=== PATIENT | female | born 1960 | race Caucasian/White ===

== ENCOUNTER → 2018-11-18 09:42 | Outpatient (CLI) | payer MEDICAID, SELFPAY ==
--- NOTE | 2018-11-18 09:45 | BI_ITS ---
MAMMOGRAPHY - BILATERAL SCREENING REASON FOR EXAM: Female, 58 years old. Routine annual screening examination. PERTINENT HISTORY: Non-contributory. TECHNIQUE: Digital bilateral breast ana (3D mammographic acquisition) in the CC and MLO projections. 2-D mediolateral oblique (MLO) and craniocaudad (CC) views of both breasts were obtained. CAD: Full Field Digital Mammography with Computer Added Detection was performed. COMPARISON: Comparison is made with prior examination dated May 10, 2014. FINDINGS: Breast Composition: The breasts are almost entirely fatty. There are no dominant masses or suspicious calcifications. No other significant abnormalities are identified. There has been no significant change since the prior study. BI/SCREEN MAMM (CAD) W/ANA BILAT IMPRESSION: Stable bilateral screening mammogram. Yearly follow-up mammogram recommended. (A) ASSESSMENT CATEGORY: BIRADS Category 1: Negative. A letter regarding these results will be sent to the patient by the facility within 30 days. Approximately 10% of breast cancers are not detected by mammography. A normal mammogram should not delay biopsy of a clinically suspicious abnormality. [id number] Electronically Signed: Benjamin Torres, at 10:48 EDT , Service support ,
== END ==
PROVIDERS: Family Provider Internal Medicine; PCP Internal Medicine; Referring Provider Nurse Practitioner; Visit Provider Nurse Practitioner
DX: Z12.31 Encounter for screening mammogram for malignant neoplasm of breast (principal)
CPT/HCPCS: 77063; 77067

== ENCOUNTER → 2019-02-15 09:01 | Outpatient (CLI) | payer MEDICAID, SELFPAY ==
[2019-02-15] VITALS (7 sets, daily range): BP systolic 110–131; BP diastolic 43–90; PULSE 67–91; RESP 16–18; TEMP 36.6–37; O2SAT 97; BMI 35.4
== END ==
PROVIDERS: Family Provider Internal Medicine; PCP Internal Medicine; Referring Provider Internal Medicine; Visit Provider Internal Medicine
DX: D64.9 Anemia, unspecified (principal)
CPT/HCPCS: 36415; 36430; 86850; 86900; 86901; 86920; 86922; J7040; P9016; A4216

== ENCOUNTER 2019-04-10 11:10 | Day surgery (SDC) | payer MEDICAID, SELFPAY ==
[2019-02-15 09:33] VITALS: BMI 35.4
[2019-04-10] VITALS (7 sets, daily range): BP systolic 82–131; BP diastolic 36–82; PULSE 66–81; RESP 15–18; TEMP 36.1–36.6; O2SAT 88–97; BMI 34.4
--- NOTE | 2019-04-10 | GASB_PTH ---
PATIENT: AMAURY MOORE LOC: EN U#:[id number] AGE/SX: 59/F ROOM: RE04/10/[address]: Dr. Kev Chahal MD : 1960 BED: DIS: 04/10/2019 SPEC #: [id number] RECD: 04/10/19 15:10 STATUS: SAURABH REHenny #: [id number] CRISTINA: 04/10/19 00:[address]: Kev Chahal DEPT: SURGICAL PATHOLOGY RECD BY: Fam Ladd ENTERED: 04/11/19 08:33 SP TYPE: Gastric Bx OTHR DR: Dr. Maxwell Lares MD Tissues: Gastric mucous membrane Procedures: Surgery Specimen Level IV HEADER OPERATION: [place] [place] DIAGNOSIS: Iron deficiency anemia TISSUE SUBMITTED: Antrum biopsy for histo and H. pylori MICROSCOPIC DIAGNOSIS Gastric antrum, biopsy: Chronic gastritis. Focal intestinal metaplasia. No evidence of dysplasia. See comment. AM:layne 04/13/19 COMMENT The results of immunohistochemistry for Helicobacter pylori will be reported separately ([id number]). Immunohistochemistry ([id number]) supports the above diagnosis. MICROSCOPIC DESCRIPTION Slides are reviewed. GROSS DESCRIPTION Received in fixative is one container labeled with the patient's name and designated antrum biopsy. The specimen consists of one irregular fragment of light polk soft tissue that measures 0.3 x 0.2 x 0.1 cm. The specimen is totally submitted in one cassette. / SJ:layne 04/11/19 TC:3 CPT: 82291
--- NOTE | 2019-04-10 07:23 | HP.PCM_ITS ---
History and Physical Date of Admission: 04/10/19 HISTORY AND PHYSICAL ? Rosi Thornton 1960 ? REFERRING PHYSICIAN: ??Marivel Quiroz MD ? CHIEF COMPLAINT: ??Consult (Consult EGD) ? HPI: The patient is a 59 year old female referred for endoscopy. ?Rosi notes no current colon complaints. ?She denies rectal bleeding. ?She denies melena. ?She denies hematochezia. ? The patient?has a history of ITP and has had previous issues of anemia and previous GI bleeding. ?She does have a history of reflux symptoms but she currently denies nausea or vomiting. ?She had recent laboratory studies which demonstrated iron deficiency anemia.??Her stool has been negative for occult blood however. ? Rosi?has??undergone prior endoscopy. ?He had upper and lower endoscopy in 2010. ? The patient is being seen by me today at the request of ?for my opinion and advice regarding iron deficiency anemia.? ? ? PAST MEDICAL HISTORY PAST MEDICAL HISTORY Diagnosis Date ? Acute gastritis ? ? Adjustment disorder with depressed mood ? ? ALKALINE PHOSPHATEMIA ? ? Allergic rhinitis, cause unspecified ? ? Anemia, unspecified ? ? Arthralgia of temporomandibular joint ? ? Cerebral thrombosis without mention of cerebral infarction 1985 ? Chronic ITP (idiopathic thrombocytopenia) (HCC) 03/01/2017 ? Diabetes (HCC) ? ? Dyspepsia and other specified disorders of function of stomach ? ? Epileptic petit mal status (HCC) ? ? Esophageal reflux 05/05/2005 ? Gait abnormality 04/17/2014 ? Neurology: ?Dr. Johny Simpson. ? Generalized convulsive epilepsy without mention of intractable epilepsy ? ? Generalized osteoarthrosis, unspecified site ? ? Headache(784.0) ? ? Hemiplegia affecting nondominant side, late effect of cerebrovascular disease 04/17/2014 ? Left sided with dysesthesias. ?Neurology: ?Dr. Johny Simpson. ? ? Hx of transfusion 03/26/2017 ? Pre Med: ?Tylenol ?650 mg p.o. ?Blood irradiated ? Impaired fasting glucose ? ? Iron deficiency anemia, unspecified 05/05/2005 ? Other acquired deformity of ankle and foot(736.79) ? ? Other and unspecified hyperlipidemia ? ? Other diseases of trachea and bronchus, not elsewhere classified ? ? Stroke (HCC) ? ? Symptomatic menopausal or female climacteric states 04/08/2006 ? Unspecified asthma(493.90) ? ? Unspecified sinusitis (chronic) ? PAST SURGICAL HISTORY PAST SURGICAL HISTORY Procedure Laterality Date ? ANEURYSM SURG/VERT-BASILAR CIRC ? 1985 ? DELIVERY ONLY ? ? ? X 2 ? COLONOSCOP W/ OR W/O BRSH SPEC ? 03/23/11 ? EGD W/O BRSH SPECIMEN W/BX ? 03/23/11 ? HYSTEROSCOPY, DIAGNOSTIC (SEPARATE ? 04/23/05 ? Hysteroscopy/curretage ? KNEE SCOPE,DIAGNOSTIC Right 1979 ? Arthroscopy, knee right ? LIGATE FALLOPIAN TUBE ? ? ? Tubal ligation ? PILONIDAL CYST/SINUS EXCISION ? ? ? Excision pilonidal cyst ? REPAIR INCISIONAL HERNIA,REDUCIBLE ? 02/12/2006 ? Hernia repair, incisional, SB resection ? REVISE MEDIAN N/CARPAL TUNNEL SURG ? ? ? Carpal tunnel decomp right ? TOTAL ABDOM HYSTERECTOMY ? 05/19/2005 ? Hysterectomy, GREYSON/BSO ? ? ? CURRENT MEDICATIONS Current Outpatient Medications Medication Sig ? loratadine (CLARITIN) 10 mg tablet Take 1 tablet by mouth once daily as needed. ? Omeprazole 40 mg capsule Take 1 capsule by mouth once daily. ? montelukast (SINGULAIR) 10 mg tablet Take 1 tablet by mouth once daily. ? metFORMIN (GLUCOPHAGE) 500 mg tablet Take 1 tablet by mouth daily with breakfast. ? albuterol (PROVENTIL) 2.5 mg /3 mL (0.083 %) nebulizer solution Use 3 mL via nebulizer every 4 hours as needed for Wheezing/Shortness of Breath. Use over 5-15minutes. ? albuterol HFA (VENTOLIN HFA) 90 mcg/actuation inhaler inhale 2 puffs every 4 hours if needed for wheezing or shortness of breath ? nystatin (MYCOSTATIN) cream Apply 1 application to affected area twice daily as needed. ? sertraline (ZOLOFT) 100 mg tablet Take 2 tablets by mouth once daily. ? mometasone (ELOCON) 0.1 % cream Apply 1 application to affected area once daily as needed (rash behind ears.). ? lisinopril-hydrochlorothiazide (ZESTORETIC) 10-12.5 mg per tablet Take 1 tablet by mouth once daily. ? simvastatin (ZOCOR) 40 mg tablet Take 1 tablet by mouth daily at bedtime. ? potassium chloride SR (MICRO-K) 10 mEq CR capsule Take 1 capsule by mouth once daily. ? gabapentin (NEURONTIN) 400 mg capsule Take 1 capsule by mouth once daily for 180 days. ? perflutren lipid microspheres (DEFINITY) 1.1 mg/mL injection (to be provided with echo procedure) Inject 1.3 mL intravenously as directed. ? COMPOUNDED PRESCRIPTION Left ankle foot orthosis. ?Dx: M21.372; I69.959 ? No current facility-administered medications for this visit.? ? ? ALLERGIES:?Augmentin [Amoxicillin-Pot Clavulanate]; Enviromental [Other] ? PERSONAL HISTORY:? SOCIAL HISTORY Social History ? Tobacco Use ? Smoking status: Former Smoker ? ? Last attempt to quit: 05/08/2000 ? ? Years since quittin.8 ? Smokeless tobacco: Never Used Substance Use Topics ? Alcohol use: No ? Drug use: No ?? ? FAMILY HISTORY:? FAMILY HISTORY FAMILY HISTORY Problem Relation Age of Onset ? Diabetes Mother ? ? Lipids Mother ? ? Hypertension Mother ? ? Alzheimer's Disease Father ?step father ? Heart Father ? ? Hypertension Sister ? ? Lipids Sister ? ? ? REVIEW OF SYMPTOMS: ??The review of systems data was entered by the nurse and reviewed by me ? Nursing Notes: Fernando Brower LPN ?03/07/2019 ?2:28 PM ?Signed REVIEW OF SYSTEMS: ?General:???The patient NOTES fatigue, denies weight loss, denies weight gain, denies feeling hot, and NOTES feelings of cold. ?Eyes: ?The patient denies glaucoma, denies eye injury/surgery, does not wear glasses or contacts. ?Ear/Nose/Throat: ?The patient NOTES allergies, denies hayfever, denies ear infections, and denies bloody noses. ?Cardiovascular: ?The patient denies chest pain, denies heart disease, denies high blood pressure,denies cardiac stent, denies prior heart attack, denies irregular heart beat, NOTES high cholesterol, ?denies poor circulation, denies heart failure, other cardiac issues, denies claudication, denies cold feet, denies peripheral arterial stent. ?Respiratory: ?The patient denies tuberculosis, denies pneumonia, denies frequent cough, denies pulmonary embolism, denies shortness of breath, and denies coughing up blood. ?Gastrointestinal: ?The patient denies difficulty swallowing, denies acid reflux, denies ulcers, denies vomiting, denies jaundice/hepatitis, NOTES gallbladder problems, denies black or tarry stools, denies hemorrhoids, denies bleeding from rectum, denies diverticulitis, denies constipation, denies diarrhea, denies loss of stool control, and denies hernias. ?Kidney/Bladder: ?The patient denies kidney stones, denies urine infections, and denies bloody urine. ?Skin: ?The patient denies a history of skin cancer, denies bleed ing/changing moles, and denies a history of skin rash. ?Neurologic: ?The patient NOTES a history of epilepsy/convulsions, NOTES headaches, denies head/spinal injuries, and NOTES stroke/TIA. ?Psychiatric: ?The patient denies psychiatric medications, NOTES depression, and denies voices, denies substance abuse. ?Endocrine: ?The patient denies thyroid disorders, NOTES diabetes, and denies hormonal problems. ?Hematologic: ?The patient NOTES a history of bruising, denies bleeding, and NOTES anemia, denies blood clots. ?Infections: ?The patient denies a history of measles and mumps, denies rheumatic fever, and denies sexually transmitted diseases. ?Musculoskeletal: ?The patient denies back pain/injury, denies back problems, denies sciatica, NOTES knee/foot trouble, denies arthritis, or denies gout. ? ? When was patient's last Mammogram screening? 2014 ? ?Last Colonoscopy: ?2010 ? Fernando Brower LPN ? PHYSICAL EXAMINATION: ? General: ?The patient is 59 year old female, well nourished, well hydrated in no acute distress. ?The patient is oriented to time, place, and person. ? VITALS:?Blood pressure 128/92, pulse 83, temperature 36.3 ?C (97.3 ?F), temperature source Temporal Artery, height 157.5 cm (5' 2), weight 85.1 kg (187 lb 9.6 oz), last menstrual period 05/04/2005, SpO2 94 %.?Body mass index is 34.31 kg/m?.? ? HEENT: ?Normal cephalic, ataumatic, pupils are equally round, sclera are anicteric, mucous membranes are moist, oropharynx is clear. ?Neck has no masses, asymmetry or lymphadenopathy. ?Thyroid is unremarkable. ? Respiratory: ?Clear to auscultation and percussion. ?Normal respiratory excursion and pattern. ? Cardiac: ?Examination is regular rate and rhythm. ? Abdominal exam: ?Soft, nontender, ?with no palpable masses. ?No hepatosplenomegaly. ?No palpable hernias. ? Rectal exam:?exam deferred ? Extremities: ?no clubbing, cyanosis or edema. ?No adenopathy. ? Other: ? LABORATORY VALUES: As Noted ? RADIOLOGIC STUDIES: ?As Noted ? Assessment ? IMPRESSION:?iron?deficiency anemia ? PLAN: ?I plan to perform upper and lower?endoscopy. ??We discussed the risks and benefits of the planned endoscopy. ?I have informed the patient that complications can occur including failure to complete the endoscopy and perforation. ?The patient had the opportunity to ask questions concerning the planned endoscopy. ?My staff has also explained the procedure to the patient in understandable terms and has given the patient printed material concerning the procedure. ?The patient freely consents to surgery. ? I plan to use golytely bowel preparation for endoscopy ? The patient has medical comorbidities for which I plan to perform the procedure under monitored anesthetic care. ? Diagnoses:?(D50.9) Iron deficiency anemia, unspecified iron deficiency anemia type ?(primary encounter diagnosis) ? My findings have been communicated to ?via shared medical record. ?This note will be forwarded to Dr. Maxwell Lares MD. ?? Return to Clinic: The patient is instructed to follow-up with me?after the testing has been completed. ? Kev Chahal MD
[2019-04-10] MEDS: Lactated Ringers 1,000 ML 100 ML IV ×2 (11:43→13:30)
[2019-04-10 11:56] LABS: Bedside Glucose 109 mg/dL (70-110)
--- NOTE | 2019-04-10 12:30 | IMM_PTH ---
PATIENT: AMAURY MOORE LOC: EN U#:[id number] AGE/SX: 59/F ROOM: RE04/10/[address]: Dr. Kev Chahal MD : 1960 BED: DIS: 04/10/2019 SPEC #: [id number] RECD: 04/11/19 09:03 STATUS: SAURABH REQ #: [id number] CRISTINA: 04/10/19 12:[address]: Kev Chahal DEPT: IMMUNOHISTOCHEMISTRY RECD BY: Cha Wang ENTERED: 04/11/19 09:04 SP TYPE: IMMUNO OTHR DR: Dr. Maxwell Lares MD Tissues: Stomach, NOS Procedures: H Pylori (initial) KI-67 (add) P53 (add) PHYSICIAN & INSTITUTION [place] [id number] SPECIMEN INFORMATION: Tissue Source: Antrum biopsy Clinical Info: Iron deficiency anemia Specimen Number: [id number] CPT code: 53509, 12342 x2 METHODOLOGY: Deparaffinized sections of prefer/formalin-fixed tissue or PAP/DQ stained slides are incubated with monoclonal/polyclonal antibodies/oligonucleotide probes. Localization is made via biotin free immunoperoxidase method. Appropriate controls are performed and reacted as expected. Results on target cell population are indicated in the following table: RESULTS: ANTIBODY / CLONE RESULT H Pylori (polyclonal) negative P53 (DO-7) negative Ki-67 (30-9) negative These tests were developed and their performance characteristics determined by [facility]. They may not have been cleared or approved by the U.S. Food and Drug Administration. The FDA has determined that such clearance or approval is not necessary. The above immunohistochemical/dualISH markers are ordered and reviewed by the pathologist. INTERPRETATION: Antrum biopsy: Negative for Helicobacter pylori organisms. No evidence of dysplasia. AM:layne 04/13/19
--- NOTE | 2019-04-10 13:54 | OP.EGD_ITS ---
Patient Name: Rosi Thornton Procedure Date: 04/10/2019 1:09 PM Date of : 1960 Age: 59 Procedure: Upper GI endoscopy Indications: Iron deficiency anemia Providers: Kev Chahal MD Referring MD: Maxwell Lares Medicines: Monitored Anesthesia Care Patient Profile: This is a 59 year old female. Refer to note in patient chart for documentation of history and physical. Complications: No immediate complications. Procedure: Pre-Anesthesia Assessment: - Prior to the procedure, a History and Physical was performed, and patient medications and allergies were reviewed. The patient is competent. The risks and benefits of the procedure and the sedation options and risks were discussed with the patient. All questions were answered and informed consent was obtained. Patient identification and proposed procedure were verified by the physician, the nurse and the clinical specialist in the procedure room. Mental Status Examination: alert and oriented. Airway Examination: normal oropharyngeal airway and neck mobility. Respiratory Examination: clear to auscultation. CV Examination: normal. Prophylactic Antibiotics: The patient does not require prophylactic antibiotics. Prior Anticoagulants: The patient has taken no previous anticoagulant or antiplatelet agents. ASA Grade Assessment: III - A patient with severe systemic disease. After reviewing the risks and benefits, the patient was deemed in satisfactory condition to undergo the procedure. The anesthesia plan was to use monitored anesthesia care (MAC). Immediately prior to administration of medications, the patient was re-assessed for adequacy to receive sedatives. The heart rate, respiratory rate, oxygen saturations, blood pressure, adequacy of pulmonary ventilation, and response to care were monitored throughout the procedure. The physical status of the patient was re-assessed after the procedure. After obtaining informed consent, the endoscope was passed under direct vision. Throughout the procedure, the patient's blood pressure, pulse, and oxygen saturations were monitored continuously. The gastroscope was introduced through the mouth, and advanced to the jejunum. The upper GI endoscopy was accomplished without difficulty. The patient tolerated the procedure well. Scope In: 1:20:58 PM Scope Out: 1:25:57 PM Total Procedure Duration Time 0 hours 4 minutes 59 seconds Findings: The examined jejunum was normal. The examined duodenum was normal. Scattered moderate inflammation characterized by erosions, erythema and friability was found in the gastric antrum. Biopsies were taken with a cold forceps for Helicobacter pylori testing using PyloriTek test. Biopsies were taken with a cold forceps for histology. The examined esophagus was normal. A small hiatal hernia was present. Impression: - Normal examined jejunum. - Normal examined duodenum. - Chronic gastritis. Biopsied. - Normal esophagus. - Small hiatal hernia. Recommendation: - Discharge patient to home. - Resume previous diet. - Continue present medications. - Await pathology results. - Return to physician safety admin assistant in 1 week. Procedure Code(s): --- Professional --- 73525, Esophagogastroduodenoscopy, flexible, transoral; with biopsy, single or multiple CPT copyright 2017 [employer]. All rights reserved. The codes documented in this report are preliminary and upon coder operator review may be revised to meet current compliance requirements. Kev Chahal MD 04/10/2019 1:54:00 PM This report has been signed electronically. Number of Addenda: 0 Note Initiated On: 04/10/2019 1:09 PM
--- NOTE | 2019-04-10 13:56 | OP.COLON_ITS ---
Patient Name: Rosi Thornton Procedure Date: 04/10/2019 1:26 PM Date of : 1960 Age: 59 Procedure: Colonoscopy Indications: Iron deficiency anemia Providers: Kev Chahal MD Referring MD: Maxwell Lares Medicines: Monitored Anesthesia Care Patient Profile: This is a 59 year old female. Refer to note in patient chart for documentation of history and physical. Last Colonoscopy: several years ago. Complications: No immediate complications. Procedure: Pre-Anesthesia Assessment: - Prior to the procedure, a History and Physical was performed, and patient medications and allergies were reviewed. The patient is competent. The risks and benefits of the procedure and the sedation options and risks were discussed with the patient. All questions were answered and informed consent was obtained. Patient identification and proposed procedure were verified by the physician, the nurse and the slitter and rewinder machine operator in the procedure room. Mental Status Examination: alert and oriented. Airway Examination: normal oropharyngeal airway and neck mobility. Respiratory Examination: clear to auscultation. CV Examination: normal. Prophylactic Antibiotics: The patient does not require prophylactic antibiotics. Prior Anticoagulants: The patient has taken no previous anticoagulant or antiplatelet agents. ASA Grade Assessment: III - A patient with severe systemic disease. After reviewing the risks and benefits, the patient was deemed in satisfactory condition to undergo the procedure. The anesthesia plan was to use monitored anesthesia care (MAC). Immediately prior to administration of medications, the patient was re-assessed for adequacy to receive sedatives. The heart rate, respiratory rate, oxygen saturations, blood pressure, adequacy of pulmonary ventilation, and response to care were monitored throughout the procedure. The physical status of the patient was re-assessed after the procedure. After I obtained informed consent, the scope was passed under direct vision. Throughout the procedure, the patient's blood pressure, pulse, and oxygen saturations were monitored continuously. The pediatric colonoscope was introduced through the anus and advanced to the cecum, identified by the appendiceal orifice, ileocecal valve and palpation. The colonoscopy was performed without difficulty. The patient tolerated the procedure well. The quality of the bowel preparation was good. Scope In: 1:28:03 PM Scope Withdrawal Time 0 hours 4 minutes 58 seconds Scope Out: 1:47:00 PM Total Procedure Duration Time 0 hours 18 minutes 57 seconds Findings: The perianal and digital rectal examinations were normal. The entire examined colon appeared normal on direct and retroflexion views. Impression: - The entire examined colon is normal on direct and retroflexion views. - No specimens collected. Recommendation: - Discharge patient to home. - Resume previous diet. - Continue present medications. - Repeat colonoscopy in 10 years for screening purposes. - Return to physician dairy and food laboratory assistant in 1 week. Procedure Code(s): --- Professional --- 23955, Colonoscopy, flexible; diagnostic, including collection of specimen(s) by brushing or washing, when performed (separate procedure) CPT copyright 2017 [employer]. All rights reserved. The codes documented in this report are preliminary and upon general ii farmworker review may be revised to meet current compliance requirements. Kev Chahal MD 04/10/2019 1:55:44 PM This report has been signed electronically. Number of Addenda: 0 Note Initiated On: 04/10/2019 1:26 PM
== END 2019-04-10 14:40 | disposition home or self-care (01) ==
LOC: EN 11:11 → AC 11:13
PROVIDERS: Family Provider Internal Medicine; PCP Internal Medicine; Referring Provider Surgery; Visit Provider Surgery
PROC: 0DJD8ZZ Inspection of Lower Intestinal Tract, Via Natural or Artificial Opening Endoscopic (ICD-10-PCS; CPT 45378; principal; 2019-04-10 12:25)
DX: D50.9 Iron deficiency anemia, unspecified (principal); K44.9 Diaphragmatic hernia without obstruction or gangrene; K29.50 Unspecified chronic gastritis without bleeding; F43.21 Adjustment disorder with depressed mood; E83.39 Other disorders of phosphorus metabolism; D69.3 Immune thrombocytopenic purpura; K21.9 Gastro-esophageal reflux disease without esophagitis; G40.909 Epilepsy, unspecified, not intractable, without status epilepticus; M19.90 Unspecified osteoarthritis, unspecified site; J45.909 Unspecified asthma, uncomplicated; Z79.899 Other long term (current) drug therapy; Z87.891 Personal history of nicotine dependence; Z86.718 Personal history of other venous thrombosis and embolism; E11.9 Type 2 diabetes mellitus without complications; Z79.84 Long term (current) use of oral hypoglycemic drugs; I69.354 Hemiplegia and hemiparesis following cerebral infarction affecting left non-dominant side; E78.5 Hyperlipidemia, unspecified; G30.9 Alzheimer's disease, unspecified; F02.80 Dementia in other diseases classified elsewhere, unspecified severity, without behavioral disturbance, psychotic disturbance, mood disturbance, and anxiety; I10 Essential (primary) hypertension
CPT/HCPCS: 43239; 45378; 82962; 88305; 88341; 88342; J7120

== ENCOUNTER → 2019-10-06 08:11 | Outpatient (CLI) | payer MEDICAID, SELFPAY ==
[2019-04-10 11:32] VITALS: BMI 34.4
[2019-10-06] VITALS (7 sets, daily range): BP systolic 127–144; BP diastolic 38–50; PULSE 78–88; RESP 16; TEMP 36.3–37; O2SAT 96–100; BMI 39.3
[2019-10-06] MEDS: 0.9% Saline Lock 10 ML Syringe IV (08:59)
== END ==
PROVIDERS: PCP Internal Medicine; Referring Provider Internal Medicine; Visit Provider Internal Medicine
DX: D64.9 Anemia, unspecified (principal)
CPT/HCPCS: 36415; 36430; 86644; 86850; 86900; 86901; 86920; 86922; J7040; P9040; A4216

== ENCOUNTER → 2021-03-18 08:14 | Outpatient (CLI) | payer MEDICAID, SELFPAY ==
[2021-03-18 08:34] VITALS: BP 140/40; PULSE 84; RESP 16; TEMP 36; O2SAT 95; BMI 31.5
[2021-03-18] MEDS: Acetaminophen 325 MG Tablet 650 MG PO (08:39)
[2021-03-18] MEDS: 0.9% NaCl Peripheral Flush Adult/Peds IV (08:39)
[2021-03-18 09:09] VITALS: BP 110/55; PULSE 76; RESP 16; TEMP 36.6
[2021-03-18 10:09] VITALS: BP 116/53; PULSE 75; RESP 16; TEMP 36.4; O2SAT 95
== END ==
PROVIDERS: PCP Internal Medicine; Referring Provider Internal Medicine Hematology & Oncology; Visit Provider Internal Medicine Hematology & Oncology
DX: K92.2 Gastrointestinal hemorrhage, unspecified (principal); K74.60 Unspecified cirrhosis of liver
CPT/HCPCS: 36430; 86850; 86900; 86901; 86920; 86922; J7040; P9016; A4216

== ENCOUNTER → 2021-04-08 09:57 | Outpatient (CLI) | payer MEDICAID, SELFPAY ==
--- NOTE | 2021-04-08 09:58 | BI_ITS ---
MAMMOGRAPHY - BILATERAL SCREENING REASON FOR EXAM: Female, 61 years old. Routine annual screening examination. PERTINENT HISTORY: Non-contributory. TECHNIQUE: Digital bilateral breast ana (3D mammographic acquisition) in the CC and MLO projections. 2-D mediolateral oblique (MLO) and craniocaudad (CC) views of both breasts were obtained. CAD: Full Field Digital Mammography with Computer Added Detection was performed. COMPARISON: Comparison is made with prior study dated 11/18/2018. FINDINGS: Breast Composition: The breasts are almost entirely fatty. There are no dominant masses or suspicious calcifications. No other significant abnormalities are identified. There has been no significant change since the prior study. BI/SCRN MAMM (CAD)W/ANA BILAT IMPRESSION: Stable bilateral screening mammogram. Yearly follow-up mammogram recommended. (A) ASSESSMENT CATEGORY: BIRADS Category 1: Negative. A letter regarding these results will be sent to the patient by the facility within 30 days. Approximately 10% of breast cancers are not detected by mammography. A normal mammogram should not delay biopsy of a clinically suspicious abnormality. [id number] Electronically Signed: Benjamin Torres MD at 11:31 EST , Service support ,
== END ==
PROVIDERS: PCP Internal Medicine; Referring Provider Internal Medicine; Visit Provider Internal Medicine
DX: Z12.31 Encounter for screening mammogram for malignant neoplasm of breast (principal)
CPT/HCPCS: 77063; 77067

== ENCOUNTER 2021-05-29 09:54 | Inpatient (IN) | payer MEDICAID, SELFPAY ==
[2021-05-29] VITALS (33 sets, daily range): BP systolic 105–148; BP diastolic 29–95; PULSE 79–89; RESP 16–26; TEMP 36.2–36.8; O2SAT 92–97; BMI 39.0; BMI 38.7
--- NOTE | 2021-05-29 10:24 | EX.ED.DYSGE1 ---
HPI History of Present Illness Chief Complaint: Abn Labs Narrative Narrative: 60-year-old female presenting with low hemoglobin. She states she was sent in by her oncologist. Patient reports a history of Christensen, gastritis, GERD, esophageal varices. Patient denies any black or bloody stools. She has not had any hematemesis or coffee-ground emesis. Patient states she feels a little bit short of breath because she is anemic. Patient recently tested positive for COVID-19 on 16 May. She is not having cough, fever, chills. She denies chest pain. Patient reports that she is slightly more jaundiced than usual. She denies any pain in her abdomen or her chest. PFSH PFSH Home Medications gabapentin 800 mg PO DAILY 11/03/15 [History Last Taken 04/09/19] loratadine [Loratadine] 10 mg PO DAILY 11/03/15 [History Last Taken 04/09/19] metformin 500 mg PO DAILY 11/03/15 [History Last Taken 04/09/19] omeprazole 40 mg PO DAILY 11/03/15 [History Last Taken 04/09/19] sertraline 200 mg PO QHS 11/03/15 [History Last Taken 04/09/19] simvastatin 40 mg PO QHS 11/03/15 [History Last Taken 04/09/19] albuterol sulfate 1 - 2 puff INHALATION Q4H PRN PRN 04/07/19 [History Last Taken 04/09/19] furosemide [Lasix] 20 mg PO DAILY 03/18/21 [History Last Taken Unknown] lactulose 15 ml PO TID 03/18/21 [History Last Taken Unknown] montelukast 10 mg PO DAILY 03/18/21 [History Last Taken Unknown] spironolactone 50 mg PO DAILY 03/18/21 [History Last Taken Unknown] carvedilol 3.125 mg PO BID 05/29/21 [History Last Taken Unknown] pantoprazole 40 mg PO BID 05/29/21 [History Last Taken Unknown] sucralfate 1 g PO 4X/DAY 05/29/21 [History Last Taken Unknown] Allergy/AdvReac Type Severity Reaction Status Date / Time No Known Allergies Allergy Verified 05/29/21 09:57 Social History Smoking Status: Former smoker ROS ROS ED ROS Narrative Generalized fatigue Constitutional Constitutional ED: Denies chills or fever(s) Eyes Eyes: Denies blurry vision or diplopia ENT ENT ED: Denies rhinorrhea or sore throat Cardiovascular Cardiovascular: Denies chest pain or palpitations Respiratory/Chest Respiratory/Chest: Reports dyspnea and dyspnea on exertion; Denies cough Gastrointestinal Gastrointestinal: Denies abdominal pain, constipation, diarrhea, melena, nausea or vomiting Genitourinary Genitourinary ED: Denies dysuria or hematuria Musculoskeletal Musculoskeletal: Denies arthralgias, myalgias or neck pain Integumentary Denies rash Neurologic Neurologic: Denies headache(s) or weakness EXAM Physical Exam Const Vital Signs: 05/29/21 09:55 05/29/21 10:21 05/29/21 11:11 Temperature 97.2 F L Temperature Source Temporal Pulse Rate 86 84 Respiratory Rate 16 20 H Respiratory Effort Short of Breath Respiratory Pattern Normal Blood Pressure 105/29 L 132/50 H Blood Pressure Mean 54 77 Blood Pressure Source Blood Pressure Location Pulse Ox 96 96 Oxygen Delivery Method Room Air Room Air 05/29/21 11:50 05/29/21 12:05 05/29/21 12:09 Temperature 98.3 F 98.2 F 98.2 F Temperature Source Oral Oral Oral Pulse Rate 84 86 86 Respiratory Rate 20 H 19 H 19 H Respiratory Effort Respiratory Pattern Blood Pressure 127/61 H 119/42 L 119/42 L Blood Pressure Mean 83 67 67 Blood Pressure Source Monitor Monitor Blood Pressure Location Right Forearm Pulse Ox 95 97 97 Oxygen Delivery Method Room Air Room Air Room Air Positive well developed General Appearance ED: well developed, NAD and pallor HEENT Reports moist mucous membranes Negative for trauma Eyes PERRL and EOMs intact bilaterally General Eye ED: Yes pale conjunctiva; Negative for scleral icterus Neck no lymphadenopathy and supple Chest Wall inspection of chest normal and palpation of chest normal Resp normal respiratory effort and clear to auscultation bilaterally Cardio regular rate and regular rhythm GI normal to inspection, nondistended, normoactive bowel sounds Neuro oriented x3 and CN's II-XII intact bilaterally Sensorium / Orientation: alert Psych mental status grossly normal Skin General Skin Exam: jaundice and pallor MDM MDM MDM Narrative Medical decision making narrative: 60-year-old female presenting with anemia. She states she is currently comfortable and pain-free. She does state that she is a little bit dyspneic with her anemia. She denies chest pain. Chest x-ray was obtained due to recent COVID-19 positivity as well as dyspnea and this is negative for acute cardiopulmonary process on my interpretation. CBC shows her hemoglobin is 4.9, platelets 29 white blood cell count 2.9. Patient is chronically pancytopenic however she usually states she is in the 6 to an 8 range on her hemoglobin. She denies black or bloody stools and she has a Hemoccult negative stool in the emergency room today. PT is slightly long at 18.1. INR 1.6. I reviewed her lab work from earlier today and her hemoglobin was 5.5 then. They only amy a CBC. Is unclear why her hemoglobin had changed change in just short timeframe. Patient does have history of gastritis as well as esophageal varices with banding. In addition to this she also has CHRISTENSEN. Total Bilirubin is slightly elevated 1.70. Direct bilirubin 0.63. AST ALT and alkaline phosphatase normal. Lipase negative. Patient was typed, screened, crossmatched for 2 units of blood. I spoke with Dr. Sanii regarding the case and he recommended giving blood transfusion as well as platelets. He states that he will evaluate her and possibly do upper endoscopy to make sure that her esophageal varices are not leaking. This was discussed with patient as well as the hospitalist prior to admission. Impression: 1. Anemia 2. Thrombocytopenia Lab Data Attestation: I reviewed the patient's lab results. Labs: Laboratory Results - last 24 hr 05/29/21 05/29/21 05/29/21 10:13 10:13 10:13 WBC 2.9 L RBC 2.05 L Hgb 4.9 L* Hct 17.9 L MCV 87.3 MCH 23.9 L MCHC 27.4 L RDW Std Deviation 56.7 H RDW Coeff of Saundra 18.6 H Plt Count 29 L* Immature Gran % (Auto) 0.300 Neut % (Auto) 69.3 Lymph % (Auto) 19.0 [place] % (Auto) 10.0 Eos % (Auto) 1.4 Baso % (Auto) 0.0 Absolute Neuts (auto) 2.0 Absolute Lymphs (auto) 0.55 L Nucleated RBC % 0 Differential Comment COMMENT Diff Path Review May foll Platelet Estimate MKD DEC PT 18.1 H INR 1.6 Sodium Potassium Chloride Carbon Dioxide Anion Gap BUN Creatinine Estim Creat Clear Calc Est GFR (MDRD) Af Amer Est GFR (MDRD) Non-Af BUN/Creatinine Ratio Glucose Calcium Phosphorus Total Bilirubin Direct Bilirubin AST ALT Alkaline Phosphatase Total Protein Albumin Globulin Lipase Blood Type O POSITIVE Antibody Screen NEGATIVE Crossmatch See Detail 05/29/21 05/29/21 10:13 10:13 WBC RBC Hgb Hct MCV MCH MCHC RDW Std Deviation RDW Coeff of Saundra Plt Count Immature Gran % (Auto) Neut % (Auto) Lymph % (Auto) [place] % (Auto) Eos % (Auto) Baso % (Auto) Absolute Neuts (auto) Absolute Lymphs (auto) Nucleated RBC % Differential Comment Diff Path Review Platelet Estimate PT INR Sodium 139 Potassium 4.1 Chloride 108 H Carbon Dioxide 26.0 Anion Gap 5 BUN 18 Creatinine 0.80 Estim Creat Clear Calc 56.93 Est GFR (MDRD) Af Amer 93 Est GFR (MDRD) Non-Af 77 BUN/Creatinine Ratio 22.4 H Glucose 171 H Calcium 8.7 Phosphorus 3.7 Total Bilirubin 1.70 H Direct Bilirubin 0.63 H AST 16 ALT 17 Alkaline Phosphatase 62 Total Protein 5.7 L Albumin 2.9 L Globulin 2.8 Lipase 71 L Blood Type Antibody Screen Crossmatch Discharge Plan Triage Chief Complaint: Abn Labs ED Provider: Ted Lewis Dx/Rx/DC Orders Prescriptions: No Action metformin 500 MG tablet 500 mg PO DAILY RF: 0 sertraline 100 MG tablet 200 mg PO QHS RF: 0 omeprazole 40 MG capsule,delayed release(DR/EC) 40 mg PO DAILY RF: 0 simvastatin 40 MG tablet 40 mg PO QHS RF: 0 gabapentin 800 MG tablet 800 mg PO DAILY RF: 0 loratadine [Allergy Relief (loratadine)] 10 MG tablet 10 mg PO DAILY RF: 0 albuterol sulfate 1 INHALER inhaler 1 - 2 puff inhalation Q4H PRN PRN (Reason: Sob &/Or Wheezing) RF: 0 montelukast 10 mg tablet 10 mg PO DAILY RF: 0 furosemide [Lasix] 20 mg Tablet 20 mg PO DAILY RF: 0 spironolactone 50 mg Tablet 50 mg PO DAILY RF: 0 lactulose 10 gram/15 mL Solution 15 ml PO TID RF: 0 sucralfate 1 gram tablet 1 g PO 4X/DAY RF: 0 carvedilol 3.125 mg tablet 3.125 mg PO BID RF: 0 pantoprazole 40 mg tablet,delayed release (DR/EC) 40 mg PO BID RF: 0 Primary Care Provider: Maxwell Lares
[2021-05-29 10:32] LABS: Absolute Lymphocyte Count 0.55 X10^3/uL (0.83-4.51); Eosinophil# 0.04 X10^3/uL; Eosinophils% 1.4 % (0-5); Hematocrit 17.9 % (37-47); Lymphocyte # 0.55 X10^3/ul (0.83-4.51); Mean Corp Hgb Conc 27.4 g/dL (32-36); Mean Corpuscular Hgb 23.9 pg (27.0-32.0); Mean Corpuscular Volume 87.3 fL (81-99); Monocyte# 0.29 X10^3/uL; NRBC Flagged by Analyzer 0 % (0-5); Neutrophil % 69.3 % (47-70); POSITIVE COUNT YES; POSITIVE DIFFERENTIAL YES; RBC Distribution Width CV 18.6 % (11.6-14.6); RBC Distribution Width SD 56.7 fl (35.1-43.9); Red Blood Count 2.05 M/mm3 (4.2-5.4); White Blood Count 2.9 K/mm3 (4.4-11.0)
[2021-05-29 10:34] LABS: International Normalized Ratio 1.6; Prothrombin Time (Protime)PT. 18.1 SECONDS (11.7-14.9)
[2021-05-29 10:37] LABS: Hemoglobin 4.9 g/dL (12.0-15.0); Platelet Count 29 K/mm3 (150-450)
[2021-05-29 10:38] LABS: Differential Indicated SCAN CRITERIA MET
[2021-05-29 10:50] LABS: AST(SGOT) 16 U/L (15-37); Alanine Aminotransfer ALT/SGPT 17 U/L (13-56); Albumin, Serum 2.9 g/dL (3.2-5.0); Alkaline Phosphatase 62 U/L (45-117); Anion Gap 5 (5-15); BUN 18 mg/dL (7-18); BUN/Creat Ratio 22.4 RATIO (10-20); Bilirubin, Direct 0.63 mg/dL (0.00-0.30); Calcium,Total 8.7 mg/dL (8.5-10.1); Chloride 108 mmol/L (98-107); EST Glomerular Filtration Rate 77 mL/min (>60); Est Glom Filt Rate - Afr Amer 93 mL/min (>60); Estimated Creatinine Clearance 56.93 ml/min; Globulin 2.8 g/dL (2.2-4.2); Glucose 171 mg/dL (74-106); Lipase 71 U/L (73-393); Potassium 4.1 mmol/L (3.5-5.1); Protein, Total 5.7 g/dL (6.4-8.2); Sodium Level 139 mmol/L (136-145)
[2021-05-29 11:01] LABS: Platelet Estimate MKD DEC (ADEQ)
--- NOTE | 2021-05-29 12:15 | PCM.HP.STD ---
[facility] - General General Date of Admission: 05/29/21 Date of Service: 05/29/21 Chief Complaint: Low hemoglobin sent by retail account manager [facility] Narrative AMAURY MOORE, is a 61 F who presents with history of Christensen cirrhosis was sent to ER by retail account manager/oncologist Dr. Quiroz for very low hemoglobin around 5. Patient has history of Christensen cirrhosis decompensated with hepatic encephalopathy, esophageal varices status post banding last 1 couple months ago as per patient. She does not have good memory and does not recall her history in chronological order but just says diagnosed in acidosis couple years ago. She follows manager radio in [place], probably Dr. Beth Calderón. Patient stated she had mild sharp chest pain middle yesterday night and today morning constant but is better now, localized to 2?3/10 intensity probably pulled her muscle. She is more jaundiced than usual. In ED, patient blood pressure 105/29, heart rate 86/min, pulse ox 96% on room air last blood pressure 119/42. Patient has pancytopenia WBC 2.9 thousand, hemoglobin 4.9/17.9% platelet count 29,000. ALC 0.55 thousand. INR 1.6. Total bili 1.7 transaminases normal. Alkaline phosphatase normal. Lipase low. For occult blood negative. UA ED was found to be 4.5 g, platelet count 23,000. As per ER physician rapid antigen is positive. Outside lab from clinic sick reviewed. Patient also had PCR positive on May 16, 2021. Her hemoglobin today as an outpatient 5.5/20%, platelet count 38,000. TB 1.5. Repeat hemoglobin today was 4.9/18%. Patient had EGD by Dr. Campos a month on 03/24/2021 which showed patulous GE junction, grade 1?2 esophageal varices with bile reflux gastritis. Portal hypertensive gastropathy. Patient is further admitted in ICU. 2 units PRBC transfusion with crossmatch and 2 units single donor platelet ordered. Currently patient is getting 1 unit PRBC. [facility] Home Medications gabapentin 800 mg PO DAILY 11/03/15 [History Last Taken 04/09/19] loratadine [Loratadine] 10 mg PO DAILY 11/03/15 [History Last Taken 04/09/19] metformin 500 mg PO DAILY 11/03/15 [History Last Taken 04/09/19] omeprazole 40 mg PO DAILY 11/03/15 [History Last Taken 04/09/19] sertraline 200 mg PO QHS 11/03/15 [History Last Taken 04/09/19] simvastatin 40 mg PO QHS 11/03/15 [History Last Taken 04/09/19] albuterol sulfate 1 - 2 puff INHALATION Q4H PRN PRN 04/07/19 [History Last Taken 04/09/19] furosemide [Lasix] 20 mg PO DAILY 03/18/21 [History Last Taken Unknown] lactulose 15 ml PO TID 03/18/21 [History Last Taken Unknown] montelukast 10 mg PO DAILY 03/18/21 [History Last Taken Unknown] spironolactone 50 mg PO DAILY 03/18/21 [History Last Taken Unknown] carvedilol 3.125 mg PO BID 05/29/21 [History Last Taken Unknown] pantoprazole 40 mg PO BID 05/29/21 [History Last Taken Unknown] sucralfate 1 g PO 4X/DAY 05/29/21 [History Last Taken Unknown] Allergy/AdvReac Type Severity Reaction Status Date / Time No Known Allergies Allergy Verified 05/29/21 09:57 Social History Smoking Status: Former smoker ROS ROS Narrative Constitutional: Reports fatigue and weakness. Generalized weakness. Lethargy HEENT: Reports systems reviewed and no addt'l complaints, except as documented Respiratory/Chest: Mild chest pain as described in HPI shortness of breath at rest or with exertion Gastrointestinal: Denies coffee ground emesis, hematemesis or vomiting. Mild nonspecific generalized abdominal discomfort but no pain Genitourinary: Denies burning urination or new urinary tract symptoms Musculoskeletal: Bilateral leg swelling. Patient on walker. Decreased muscle strength, poor balance. Neurologic: Lethargic, poor memory, denies seizure-like activity skin: No ulcer. No rash Endocrinology: Reports systems reviewed and no addt'l complaints, except as documented Hematologic/Lymphatic: Pancytopenia. Reports systems reviewed and no addt'l complaints, except as documented Rest 14 ROS are negative except as mentioned in HPI Vital Signs Vital Signs Vital Signs: 05/29/21 09:55 05/29/21 10:21 05/29/21 11:11 Temperature 97.2 F L Temperature Source Temporal Pulse Rate 86 84 Respiratory Rate 16 20 H Respiratory Effort Short of Breath Respiratory Pattern Normal Blood Pressure 105/29 L 132/50 H Blood Pressure Mean 54 77 Blood Pressure Source Blood Pressure Location Pulse Ox 96 96 Oxygen Delivery Method Room Air Room Air 05/29/21 11:50 05/29/21 12:05 05/29/21 12:09 Temperature 98.3 F 98.2 F 98.2 F Temperature Source Oral Oral Oral Pulse Rate 84 86 86 Respiratory Rate 20 H 19 H 19 H Respiratory Effort Respiratory Pattern Blood Pressure 127/61 H 119/42 L 119/42 L Blood Pressure Mean 83 67 67 Blood Pressure Source Monitor Monitor Blood Pressure Location Right Forearm Pulse Ox 95 97 97 Oxygen Delivery Method Room Air Room Air Room Air Weight Weight: 213 lb 8 oz Body Mass Index (BMI) 39.0 Physical Exam Narrative General: Lethargic, awake. Oriented x3. HEENT: Pale conjunctiva. Icterus present. Atraumatic, PERRLA, EOMI, Normocephalic Oral: Oral mucosa dry. No Gingival or Mucosal Lesions/ Ulcerations Neck: Supple, No JVD, Negative Carotid Bruits Lungs: Air entry diminished in bilateral lung bases. Bilateral wheezing present. Cardiovascular: Regular rate, Regular Rhythm, Normal S1, Normal S2, No murmurs Abdomen: Bowel Sounds Present, Soft, Non Tender, fat abdomen. No fluid thrill. : No renal angle tenderness. No suprapubic tenderness. Extremities: Bilateral lower extremity pitting edema, Capillary Refill Less than 3 Seconds Skin: No rashes, No breakdown Musculoskeletal: ROM restricted. No Tenderness to Palpation of Joints or Extremities Neurological: Cranial nerves II-XII grossly intact, DTR 2+/4,/24/5 at major joints Psych/Mental Status: Flat affect. Results Lab / Micro Data Result Diagrams: 05/29/21 10:13 05/29/21 10:13 Labs: Laboratory Results - last 24 hr 05/29/21 10:13: PT 18.1 H, INR 1.6 05/29/21 10:13: Blood Type O POSITIVE, Antibody Screen NEGATIVE, Crossmatch See Detail 05/29/21 10:13: WBC 2.9 L, RBC 2.05 L, Hgb 4.9 L*, Hct 17.9 L, MCV 87.3, MCH 23.9 L, MCHC 27.4 L, RDW Std Deviation 56.7 H, RDW Coeff of Saundra 18.6 H, Plt Count 29 L*, Immature Gran % (Auto) 0.300, Neut % (Auto) 69.3, Lymph % (Auto) 19.0, [place] % (Auto) 10.0, Eos % (Auto) 1.4, Baso % (Auto) 0.0, Absolute Neuts (auto) 2.0, Absolute Lymphs (auto) 0.55 L, Nucleated RBC % 0, Differential Comment COMMENT, Diff Path Review August kinjal, Platelet Estimate MKD DEC 05/29/21 10:13: Sodium 139, Potassium 4.1, Chloride 108 H, Carbon Dioxide 26.0, Anion Gap 5, BUN 18, Creatinine 0.80, Estim Creat Clear Calc 56.93, Est GFR (MDRD) Af Amer 93, Est GFR (MDRD) Non-Af 77, BUN/Creatinine Ratio 22.4 H, Glucose 171 H, Calcium 8.7, Total Bilirubin 1.70 H, Direct Bilirubin 0.63 H, AST 16, ALT 17, Alkaline Phosphatase 62, Total Protein 5.7 L, Albumin 2.9 L, Globulin 2.8, Lipase 71 L Micro: Microbiology 05/29/21 10:40 Stool Stool Occult Blood (ISIDRO) - Final Assessment & Plan Assessment/Plan (1) Severe anemia: (2) Decompensation of cirrhosis of liver: PLAN: 1. Acute on chronic normochromic anemia type suspicion of variceal bleeding: Patient is being admitted in ICU. Group and crossmatch, 2 units PRBC and 2 units single platelet donor already ordered in ED. Protonix 80 mg IV bolus and then continuous infusion ordered. Octreotide drip and ceftriaxone 1 g IV daily first dose now ordered. Discussed with GI. No antiplatelet/anticoagulant, contraindicated. Monitor H&H every 6 hourly. CBC and CMP daily a.m. Magnesium and phosphorus ordered. Keep the patient n.p.o. Blood pressure in normal range but will hold antihypertensive, diuretics and beta-samara. 2. Pancytopenia with leukopenia, lymphopenia, severe thrombocytopenia probably due to cirrhosis with COVID-19 infection since May 16, 2021: Patient also had COVID-19 PCR positive on 05/16/2021. Rapid antigen positive. Covid 19 enhanced isolation. Chest x-ray PA and lateral ordered. 3. Asthma COPD overlap: Patient is not short of breath but has chronic wheezing and states she has asthma. On albuterol as needed. Patient is on albuterol inhaler montelukast and loratadine at home 4. Decompensated Christensen cirrhosis with esophageal varices status post banding and PHG, hepatic encephalopathy: As mentioned in HPI, patient follows manager radio . Right upper quadrant sonogram ordered. At home patient is on Lasix, spironolactone, simvastatin, omeprazole, carvedilol and sucralfate. Home medication reconciliation done 5. Diabetes mellitus type 2: Accu-Chek insulin coverage Humalog sliding scale. 6 other comorbidities dyslipidemia, low functional activity, anxiety and depression. CODE STATUS: Full code unverified Total time of the visit including total time spent in counseling or coordination of care, (more than 50% of the total time, spent in obtaining medical information from nurses and other ancillary care providers,explaining to the patient about labs, imaging, diagnosis and management), discussion with solutions architect consultant, review of outside labs and EGD from [facility], review of labs and imaging is 50 minutes. Charges/Coding Visit Charges Inpatient E&M: 88334 Init Hosp L3
[2021-05-29 12:31] LABS: Phosphorus 3.7 mg/dL (2.5-4.9)
--- NOTE | 2021-05-29 12:34 | EKG12_ITS ---
Test Reason : ABNORMAL LABS Blood Pressure : / mmHG Vent. Rate : 083 BPM Atrial Rate : 083 BPM P-R Int : 116 ms QRS Dur : 078 ms QT Int : 394 ms P-R-T Axes : 043 040 018 degrees QTc Int : 462 ms Normal sinus rhythm Nonspecific ST and T wave abnormality Abnormal ECG Confirmed by RENAY GARCIA, MARIUSZ ([id number]), department editor NAMAN MARCANO ([id number]) on 05/30/2021 11:01:31 AM Referred By: REED Confirmed By:MARIUSZ NIÑO MD
--- NOTE | 2021-05-29 12:55 | ED.RN ---
REPORT GIVEN TO CHARISSA DE LEON, ICU.
--- NOTE | 2021-05-29 13:00 | CASEMGMT ---
RN CM Assessment Introduced role of RN CM to patient. Patient is alert, oriented and able to participate in RN CM Assessment. Care providers, pharmacy, and demographics verified. CC: Anemia, H/o WILHELM, Gastritis, GERD, Esophageal Varices. Sent by Onc-Dr Quiroz d/t low Hgb. Patient C/o little SOB and jaundice. Diagnosed with Covid on 05/16/21 at [facility] in [place]. Re-Admit: No Barriers/Issues: Patient lives in an apartment with her boyfriend and states just received a notice this past Wednesday that they have to be out by July 16. Patient tearful and denies it being an eviction or through [employer] [facility]. Agreeable to IP SW Consult to assist with resources and alternative placement options. Believes she has a caseworker protective services through [facility] but cannot recall a name. Denies having a caseworker protective services through [facility]. Patient sister lives with her and grandchildren. PCP: Maxwell Lares Specialists: Onc- Dr Quiroz, Hepato- Dr Mcmullen in [facility] with [facility] Preferred Pharmacy: [facility] [place] [facility] Benefit: Yes LNOK: Sister Magdalena Todd LW/HPOA: None. AD information provided to patient with SW rack card and patient informed to notify staff if wishing to complete AD on this admission. Informed can also return as an outpatient to complete ADs. Living Arrangements: Lives with her boyfriend in a ground level apartment. 1 step to enter home. ADL?s: Ambulates with a 2WW, Ind with ADLs. Sister assists with transportation needs. Transportation: Both patient and her boyfriend do not drive. Patient sister transports them. DME: 2WW, Rollator, Manual [employer], [place]. HHC: None SNF: None Goal: Home with concern of her having to leave her home by July 16. No RNCM needs identified at this time. DC PLAN: Home with Possible HH for SN- check VS,Labs and SW to assist with housing placement vs [facility] [place]
[2021-05-29] MEDS: Ceftriaxone 1 GM/50 ML BAG IV (14:13)
--- NOTE | 2021-05-29 14:25 | RAD_ITS ---
STUDY: X-RAY CHEST REASON FOR EXAM: Female, 61 years old. covid 19 infection, asthma TECHNIQUE: AP COMPARISON: None. FINDINGS: EKG leads project over the chest. The lungs are clear and expanded. There is no demonstrated pleural abnormality. Normal size heart. Normal mediastinum and sandy. Normal visualized pulmonary arteries. There is atherosclerotic calcification of the aortic arch with tortuosity. Normal visualized thoracic spine. Normal visualized ribs, clavicles, and shoulders. There is no demonstrated abnormality of the visualized soft tissue structures of the upper abdomen. RAD/Chest 1 View (Portable) IMPRESSION: Nonacute portable x-ray examination of the chest. Electronically Signed: Ollie Novak MD ([place]) at 15:00 EST ,
[2021-05-29 15:08] LABS: BNP,B-Type NATRIURETIC PEPTIDE 142.8 pg/mL (0-100)
[2021-05-29 15:29] LABS: Pathologist Review Reviewed
[2021-05-29] MEDS: Lactated Ringers 1,000 ML 75 ML IV (18:02)
--- NOTE | 2021-05-29 19:03 | CON.PCM.GI_ITS ---
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 She is not on the transplant list. She has never had a paracentesis for ascites. She has had upper GI bleed secondary to esophageal varices. She has not had any treatment for gastric varices or duodenal varices. is She not on any beta-blockers. She does not take any blood thinners or umho-khw-mhnjail pain medicines. Her hemoglobin as an outpatient was 5.6. When she came to the ER to get it rechecked it was 4.5. She has no history of hemolysis. Her last upper endoscopy had showed grade 2 to grade 3 esophageal varices status post banding. 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 Beth Calderón. In ED, patient blood pressure 105/29, heart rate 86/min, pulse ox 96% on room air last blood pressure 119/42. Patient has pancytopenia WBC 2.9 thousand, hemoglobin 4.9/17.9% platelet count 29,000. ALC 0.55 thousand. INR 1.6. Total bili 1.7 transaminases normal. Alkaline phosphatase normal. Lipase low. For occult blood negative. She is currently in ICU at this time on an eight octreotide drip, PPI drip, IV fluids and she received ceftriaxone 1 g. Also received 2 units of packed red blood cells and is awaiting a platelet transfusion [facility] Medical History (Updated 05/29/21 @ 14:59 by Ca Thornton) Anemia Anxiety Asthma Cirrhosis Depression Diabetes Former smoker GERD (gastroesophageal reflux disease) GI bleed Seizures Stroke/cerebrovascular accident Home Medications gabapentin 800 mg PO DAILY 11/03/15 [History Last Taken 04/09/19] loratadine [Loratadine] 10 mg PO DAILY 11/03/15 [History Last Taken 04/09/19] metformin 500 mg PO DAILY 11/03/15 [History Last Taken 04/09/19] omeprazole 40 mg PO DAILY 11/03/15 [History Last Taken 04/09/19] sertraline 200 mg PO QHS 11/03/15 [History Last Taken 04/09/19] simvastatin 40 mg PO QHS 11/03/15 [History Last Taken 04/09/19] albuterol sulfate 1 - 2 puff INHALATION Q4H PRN PRN 04/07/19 [History Last Taken 04/09/19] furosemide [Lasix] 20 mg PO DAILY 03/18/21 [History Last Taken Unknown] lactulose 15 ml PO TID 03/18/21 [History Last Taken Unknown] montelukast 10 mg PO DAILY 03/18/21 [History Last Taken Unknown] spironolactone 50 mg PO DAILY 03/18/21 [History Last Taken Unknown] carvedilol 3.125 mg PO BID 05/29/21 [History Last Taken Unknown] pantoprazole 40 mg PO BID 05/29/21 [History Last Taken Unknown] sucralfate 1 g PO 4X/DAY 05/29/21 [History Last Taken Unknown] Allergy/AdvReac Type Severity Reaction Status Date / Time No Known Allergies Allergy Verified 05/29/21 09:57 Social History Smoking Status: Former smoker ROS Review of Systems ROS Unobtainable: other Constitutional Constitutional: Denies fatigue, fever(s), poor appetite, weight gain or weight loss ENT HEENT: Denies mouth lesions Cardiovascular Cardiovascular: Denies abdominal bloating, abdominal edema or abdominal pain Respiratory/Chest Respiratory/Chest: Denies change in mental status, change in phlegm color, chest congestion or chest tightness Gastrointestinal Gastrointestinal: Denies belching, bloating, change in bowel habits, change in stool character, chewing difficulty, coffee ground emesis, constipation, c ramping, diarrhea, dyspepsia, dysphagia, early satiety, excessive flatus, fecal incontinence, heartburn, hematemesis, hematochezia, hemorrhoids, loose stools, melena, nausea, odynophagia, rectal bleeding, tenesmus, vomiting or weight changes Genitourinary Genitourinary: Denies abdominal discomfort, burning urination or itching Musculoskeletal Musculoskeletal: Reports as per HPI; Denies muscle weakness or myalgias Integumentary Integumentary: Denies jaundice Neurologic Neurologic: Denies lack of coordination or weakness Psychiatric Psychiatric: Denies confusion, depression, memory loss, mood swings, paranoia or suicidal ideation Endocrine Endocrinology: Denies systems reviewed and no addt'l complaints, except as documented Hematologic/Lymphatic Hematologic/Lymphatic: Denies anemia, easy bleeding, easy bruising or lymphadenopathy Allergic/Immunologic Allergic/Immunologic: Denies systems reviewed and no addt'l complaints, except as documented Physical Exam Const alert General Appearance: cooperative Orientation / Consciousness: oriented to person HEENT hearing grossly normal bilaterally Head and Scalp: normal to inspection Face and Sinus: face symmetric Nose: external nose normal Mouth: oral and palatal mucosa normal Eyes conjunctivae normal General Eye: normal appearance of both eyes Neck full ROM General: normal visual inspection Lymph Lymphatic: no lymphadenopathy noted Chest inspection of chest normal and palpation of chest normal Chest: symmetrical chest wall rise Resp normal respiratory effort Effort and Inspection: able to speak in complete sentences Cardio regular rate GI non-distended Percussion: normal to percussion Rectal Exam: deferred Neuro Speech: speech normal Gait (Neuro): normal gait Lab / Micro Data Result Diagrams: 05/29/21 10:13 05/29/21 10:13 Labs: Laboratory Results - last 24 hr 05/29/21 10:13: PT 18.1 H, INR 1.6 05/29/21 10:13: Blood Type O POSITIVE, Antibody Screen NEGATIVE, Crossmatch See Detail 05/29/21 10:13: WBC 2.9 L, RBC 2.05 L, Hgb 4.9 L*, Hct 17.9 L, MCV 87.3, MCH 23.9 L, MCHC 27.4 L, RDW Std Deviation 56.7 H, RDW Coeff of Saundra 18.6 H, Plt Count 29 L*, Immature Gran % (Auto) 0.300, Neut % (Auto) 69.3, Lymph % (Auto) 19.0, [place] % (Auto) 10.0, Eos % (Auto) 1.4, Baso % (Auto) 0.0, Absolute Neuts (auto) 2.0, Absolute Lymphs (auto) 0.55 L, Nucleated RBC % 0, Differential Comment COMMENT, Diff Path Review Reviewed, Platelet Estimate MKD 05/29/21 10:13: Sodium 139, Potassium 4.1, Chloride 108 H, Carbon Dioxide 26.0, Anion Gap 5, BUN 18, Creatinine 0.80, Estim Creat Clear Calc 56.93, Est GFR (MDRD) Af Amer 93, Est GFR (MDRD) Non-Af 77, BUN/Creatinine Ratio 22.4 H, Glucose 171 H, Calcium 8.7, Total Bilirubin 1.70 H, Direct Bilirubin 0.63 H, AST 16, ALT 17, Alkaline Phosphatase 62, Total Protein 5.7 L, Albumin 2.9 L, Globulin 2.8, Lipase 71 L 05/29/21 10:13: Phosphorus 3.7 05/29/21 10:13: B-Natriuretic Peptide 142.8 H 05/29/21 12:15: COVID-19 (ZINA) Not Detected Micro: Microbiology 05/29/21 10:40 Stool Stool Occult Blood (ISIDRO) - Final Radiology Impression Chest X-Ray 05/29/21 14:25 IMPRESSION: Nonacute portable x-ray examination of the chest. Electronically Signed: Ollie Novak MD (Brooks) at 15:00 EST , Assessment & Plan Assessment/Plan (1) Severe anemia: PLAN: Her anemia is probably multifactorial in the setting of cirrhosis. The differential diagnosis for her worsening anemia would be oozing from portal gastropathy or esophageal varices. Also on a different diagnosis would be bone marrow suppression secondary to cirrhosis. She has never had an capsule endos copy. This can be done as an outpatient to evaluate her small bowel for varices, AVMs, telangiectasias or ulcerative disease. She will need to undergo EGD. (2) Decompensation of cirrhosis of liver: PLAN: Patient hasn't shown any signs of encephalopathy at this time. I would recommend to check an ammonia level as hyperammonemia can result from GI bleed. If her ammonia level is elevated recommend lactulose 20 cc every 6 hours. Charges/Coding Visit Charges Inpatient E&M: 66597 Init Hosp L3
[2021-05-29 20:33] LABS: Hematocrit 22.4 % (37-47); Hemoglobin 6.7 g/dL (12.0-15.0); POSITIVE COUNT YES
--- NOTE | 2021-05-29 20:56 | PCM.HOSP.N ---
Hospitalist Note Hgb following initial 2 administration 6.7, will administer 1 additional and continue repeat Hgb per primary hospitalist plan.
[2021-05-30] VITALS (26 sets, daily range): BP systolic 105–132; BP diastolic 34–75; PULSE 75–87; RESP 16–22; TEMP 36.1–38.1; O2SAT 90–99
[2021-05-30 04:24] LABS: Absolute Lymphocyte Count 0.54 X10^3/uL (0.83-4.51); Absolute Neutrophil Count 2.3 X10^3/uL (2.0-7.7); Basophil# 0.01 X10^3/uL; Basophil% 0.3 % (0-1); Eosinophil# 0.06 X10^3/uL; Eosinophils% 1.8 % (0-5); Hematocrit 24.3 % (37-47); Hemoglobin 7.4 g/dL (12.0-15.0); Lymphocyte # 0.54 X10^3/ul (0.83-4.51); Lymphocyte % 16.2 % (19-41); Mean Corp Hgb Conc 30.5 g/dL (32-36); Mean Corpuscular Hgb 26.9 pg (27.0-32.0); Mean Corpuscular Volume 88.4 fL (81-99); Monocyte# 0.36 X10^3/uL; Monocyte% 10.8 % (0-10); NRBC Flagged by Analyzer 0.6 % (0-5); Neutrophil # 2.34 X10^3/uL (2.7-7.7); Neutrophil % 70.3 % (47-70); POSITIVE COUNT YES; POSITIVE DIFFERENTIAL YES; RBC Distribution Width CV 17.2 % (11.6-14.6); RBC Distribution Width SD 54.5 fl (35.1-43.9); Red Blood Count 2.75 M/mm3 (4.2-5.4); White Blood Count 3.3 K/mm3 (4.4-11.0)
[2021-05-30 04:27] LABS: Differential Indicated SCAN CRITERIA MET; Platelet Count 32 K/mm3 (150-450)
[2021-05-30 04:37] LABS: ALB/GLOB Ratio 0.9 RATIO (0.9-2.4); AST(SGOT) 33 U/L (15-37); Alanine Aminotransfer ALT/SGPT 20 U/L (13-56); Albumin, Serum 2.7 g/dL (3.2-5.0); Alkaline Phosphatase 58 U/L (45-117); Anion Gap 7 (5-15); BUN 14 mg/dL (7-18); BUN/Creat Ratio 18.1 RATIO (10-20); Calcium,Total 8.2 mg/dL (8.5-10.1); Chloride 108 mmol/L (98-107); Creatinine, Serum 0.78 mg/dL (0.55-1.02); EST Glomerular Filtration Rate 80 mL/min (>60); Est Glom Filt Rate - Afr Amer 97 mL/min (>60); Estimated Creatinine Clearance 58.39 ml/min; Globulin 2.9 g/dL (2.2-4.2); Glucose 141 mg/dL (74-106); Potassium 4.3 mmol/L (3.5-5.1); Protein, Total 5.6 g/dL (6.4-8.2); Sodium Level 140 mmol/L (136-145)
[2021-05-30 04:44] LABS: Anisocytosis 1+; Ovalocyte 1+; Polychromasia 1+; Tear Drop Cell RARE
--- NOTE | 2021-05-30 06:15 | CON.PCM.CC_ITS ---
Assessment & Plan Assessment/Plan (1) Decompensation of cirrhosis of liver: (2) Severe anemia: PLAN: RECOMMENDATIONS: 1. Continue to monitor H&H and transfuse if hemoglobin drops below 7 g/dL. 2. Continue PPI therapy and octreotide. 3. Tentative plans for endoscopic evaluation by gastroenterology. 4. Continue as needed bronchodilator therapy. 5. Will sign off from a critical care perspective. IMPRESSIONS: 1. Blood loss anemia The patient presented to the hospital in a severely anemic state, which required transfusion of blood products for stabilization. The patient has remained hemodynamically stable. She remains on octreotide and a PPI infusion, in light of her history of varices. There are tentative plans for endoscopic evaluation by gastroenterology today. Recommend continuing to monitor H&H and transfuse if hemoglobin drops below 7 g/dL. 2. Decompensated liver cirrhosis Medical management per gastroenterology recommendations. 3. History of COPD/asthma overlap/diabetes mellitus/hyperlipidemia/anxiety/depression Complicates care, management, recovery and prognosis. Continue home medications as indicated. This note was generated with Gro dictation software. It may contain incorrect words, spelling, and punctuation that were not noted in checking the note before signing. HPI Consult Data Date of Consult: 05/31/21 HPI Narrative Reason for Consultation: Anemia HPI Narrative: The patient is a 61-year-old female, with a history as outlined below, who presented to the emergency department on May 29 with worsening anemia and shortness of breath. The patient has a history of WILHELM cirrhosis and esophageal varices. The patient was referred to the emergency department by her manager special events, Dr. Quiroz due to her anemia. On presentation to the emergency department, the patient was noted to be afebrile and hypotensive with a blood pressure of 105/29 mmHg. She was, never theless, maintaining appropriate oxygen saturations on room air. Initial laboratory evaluation revealed a hemoglobin of 4.9 g/dL along with a platelet count of 29,000. Coagulation profile revealed an INR of 1.6. Chemistry profile was largely unrevealing. Total bili was increased at 1.7. BNP was increased at 142. Lipase was normal. Covid PCR was negative. Chest x-ray demonstrated no acute cardiopulmonary process. The patient was seen in consultation by gastroenterology and started on ceftriaxone, octreotide and PPI. She was subsequently admitted to the medical intensive care unit. Overnight, the patient has remained clinically stable. She has received 3 units packed red blood cells and 2 units of platelets. Hemoglobin this morning was noted to be 7.4 g/dL with a platelet count of 32,000. Total bili has increased to 3.7. The patient does report feeling much better this morning and denies any abdominal pain, nausea or vomiting. [facility] Medical History (Updated 05/29/21 @ 14:59 by Ca Thornton) Anemia Anxiety Asthma Cirrhosis Depression Diabetes Former smoker GERD (gastroesophageal reflux disease) GI bleed Seizures Stroke/cerebrovascular accident Home Medications gabapentin 800 mg PO DAILY 11/03/15 [History Last Taken 04/09/19] loratadine [Loratadine] 10 mg PO DAILY 11/03/15 [History Last Taken 04/09/19] metformin 500 mg PO DAILY 11/03/15 [History Last Taken 04/09/19] omeprazole 40 mg PO DAILY 11/03/15 [History Last Taken 04/09/19] sertraline 200 mg PO QHS 11/03/15 [History Last Taken 04/09/19] simvastatin 40 mg PO QHS 11/03/15 [History Last Taken 04/09/19] albuterol sulfate 1 - 2 puff INHALATION Q4H PRN PRN 04/07/19 [History Last Taken 04/09/19] furosemide [Lasix] 20 mg PO DAILY 03/18/21 [History Last Taken Unknown] lactulose 15 ml PO TID 03/18/21 [History Last Taken Unknown] montelukast 10 mg PO DAILY 03/18/21 [History Last Taken Unknown] spironolactone 50 mg PO DAILY 03/18/21 [History Last Taken Unknown] carvedilol 3.125 mg PO BID 05/29/21 [History Last Taken Unknown] pantoprazole 40 mg PO BID 05/29/21 [History Last Taken Unknown] sucralfate 1 g PO 4X/DAY 05/29/21 [History Last Taken Unknown] Allergy/AdvReac Type Severity Reaction Status Date / Time No Known Allergies Allergy Verified 05/29/21 09:57 Social History Smoking Status: Former smoker ROS Constitutional Constitutional: Reports fatigue and weakness; Denies chills or fever(s) Eyes Eyes: Denies blurry vision or change in vision ENT HEENT: Denies dysphagia, epistaxis or headache(s) Cardiovascular Cardiovascular: Reports chest pain; Denies dizziness Respiratory/Chest Respiratory/Chest: Reports dyspnea; Denies cough Gastrointestinal Gastrointestinal: Denies diarrhea, melena or vomiting Genitourinary Genitourinary: Denies difficulty urinating Musculoskeletal Musculoskeletal: Denies arthralgias, back pain or joint pain Integumentary Integumentary: Denies lesions, rash or skin ulcer Neurologic Neurologic: Denies abnormal gait or abnormal speech Psychiatric Psychiatric: Denies anxiety or depression Endocrine Endocrinology: Reports fatigue Hematologic/Lymphatic Hematologic/Lymphatic: Denies easy bleeding or easy bruising Physical Exam Const alert, oriented x3 and no apparent distress Constitutional Narrative: Sitting in bedside recliner. General Appearance: cooperative Nutritional Appearance: obese HEENT normocephalic and head/scalp atraumatic Eyes PERRL and EOMs intact bilaterally Eyes Narrative: + Scleral icterus Neck supple General: trachea midline Chest inspection of chest normal Resp normal respiratory effort Auscultation: diminished lung sounds; Negative for rales, rhonchi or wheezes Cardio regular rate and regular rhythm GI normal to inspection, nondistended, normoactive bowel sounds Extremity General Extremity: edema bilateral lower extremity; Negative for clubbing Skin no rashes or lesions noted Neuro CN's II-XII intact bilaterally, moves all extremities and no focal motor deficits Psych cooperative and affect normal Lab / Micro Data Result Diagrams: 05/31/21 00:42 05/30/21 04:10 Labs: Laboratory Results - last 24 hr 05/29/21 10:13: PT 18.1 H, INR 1.6 05/29/21 10:13: Blood Type O POSITIVE, Antibody Screen NEGATIVE, Crossmatch See Detail 05/29/21 10:13: WBC 2.9 L, RBC 2.05 L, Hgb 4.9 L*, Hct 17.9 L, MCV 87.3, MCH 23.9 L, MCHC 27.4 L, RDW Std Deviation 56.7 H, RDW Coeff of Saundra 18.6 H, Plt Count 29 L*, Immature Gran % (Auto) 0.300, Neut % (Auto) 69.3, Lymph % (Auto) 19.0, [place] % (Auto) 10.0, Eos % (Auto) 1.4, Baso % (Auto) 0.0, Absolute Neuts (auto) 2.0, Absolute Lymphs (auto) 0.55 L, Nucleated RBC % 0, Differential Comment COMMENT, Diff Path Review Reviewed, Platelet Estimate MKD 05/29/21 10:13: Sodium 139, Potassium 4.1, Chloride 108 H, Carbon Dioxide 26.0, Anion Gap 5, BUN 18, Creatinine 0.80, Estim Creat Clear Calc 56.93, Est GFR (MDRD) Af Amer 93, Est GFR (MDRD) Non-Af 77, BUN/Creatinine Ratio 22.4 H, Glucose 171 H, Calcium 8.7, Total Bilirubin 1.70 H, Direct Bilirubin 0.63 H, AST 16, ALT 17, Alkaline Phosphatase 62, Total Protein 5.7 L, Albumin 2.9 L, Globulin 2.8, Lipase 71 L 05/29/21 10:13: Phosphorus 3.7 05/29/21 10:13: B-Natriuretic Peptide 142.8 H 05/29/21 10:13: Crossmatch See Detail 05/29/21 12:15: COVID-19 (ZINA) Not Detected 05/29/21 20:20: Hgb 6.7 L, Hct 22.4 L 05/30/21 04:10: WBC 3.3 L, RBC 2.75 L, Hgb 7.4 L, Hct 24.3 L, MCV 88.4, MCH 26.9 L, MCHC 30.5 L D, RDW Std Deviation 54.5 H, RDW Coeff of Saundra 17.2 H, Plt Count 32 L*, MPV TNP, Immature Gran % (Auto) 0.600, Neut % (Auto) 70.3 H, Lymph % (Auto) 16.2 L, [place] % (Auto) 10.8 H, Eos % (Auto) 1.8, Baso % (Auto) 0.3, Absolute Neuts (auto) 2.3, Absolute Lymphs (auto) 0.54 L, Nucleated RBC % 0.6, Diff Path Review May foll, Polychromasia 1+, Anisocytosis 1+, Tear Drop Cells RARE, Ovalocytes 1+ 05/30/21 04:10: Sodium 140, Potassium 4.3, Chloride 108 H, Carbon Dioxide 25.0, Anion Gap 7, BUN 14, Creatinine 0.78, Estim Creat Clear Calc 58.39, Est GFR (MDRD) Af Amer 97, Est GFR (MDRD) Non-Af 80, BUN/Creatinine Ratio 18.1, Glucose 141 H, Calcium 8.2 L, Total Bilirubin 3.70 H, AST 33, ALT 20, Alkaline Phosphatase 58, Total Protein 5.6 L, Albumin 2.7 L, Globulin 2.9, Albumin/Globulin Ratio 0.9 Micro: Microbiology 05/29/21 10:40 Stool Stool Occult Blood (ISIDRO) - Final Radiology Impression Chest X-Ray 05/29/21 14:25 IMPRESSION: Nonacute portable x-ray examination of the chest. Electronically Signed: Ollie Novak MD (Brooks) at 15:00 EST , Charges/Coding Visit Charges Inpatient E&M: 27281 Init Hosp L3
[2021-05-30 06:51] LABS: Bedside Glucose 155 mg/dL (70-110)
--- NOTE | 2021-05-30 07:15 | PCM.PN.HOSP ---
Subjective Subjective Follow-up for acute severe anemia secondary to possible variceal bleed/upper GI bleed Seen and made. Patient blood pressure has been good so far. No hypotension. Heart rate in the 80s. Had 3 units of PRBC transfusion and 2 units of single donor platelet transfusion. Denies abdominal pain. Objective Data Objective Data Vital Signs: Vital Signs Temp Pulse Resp BP Pulse Ox 97.8 F 80 22 H 113/52 L 91 05/30/21 05:00 05/30/21 06:00 05/30/21 06:00 05/30/21 06:00 05/30/21 06:00 Oxygen Delivery Method Room Air Weight: 215 lb 13.321 oz Body Mass Index (BMI) 38.7 Intake & Output: Intake and Output for Last 24 Hours 05/28/21 05/29/21 05/30/21 23:59 23:59 23:59 Intake Total 545.21 / 545.21 232.30 / 232.30 Output Total 450 / 450 Balance 95.21 / 95.21 232.30 / 232.30 Lab / Micro Data Result Diagrams: 05/30/21 04:10 05/30/21 04:10 Labs: Laboratory Results - last 24 hr 05/29/21 10:13: PT 18.1 H, INR 1.6 05/29/21 10:13: Blood Type O POSITIVE, Antibody Screen NEGATIVE, Crossmatch See Detail 05/29/21 10:13: WBC 2.9 L, RBC 2.05 L, Hgb 4.9 L*, Hct 17.9 L, MCV 87.3, MCH 23.9 L, MCHC 27.4 L, RDW Std Deviation 56.7 H, RDW Coeff of Saundra 18.6 H, Plt Count 29 L*, Immature Gran % (Auto) 0.300, Neut % (Auto) 69.3, Lymph % (Auto) 19.0, [place] % (Auto) 10.0, Eos % (Auto) 1.4, Baso % (Auto) 0.0, Absolute Neuts (auto) 2.0, Absolute Lymphs (auto) 0.55 L, Nucleated RBC % 0, Differential Comment COMMENT, Diff Path Review Reviewed, Platelet Estimate MKD 05/29/21 10:13: Sodium 139, Potassium 4.1, Chloride 108 H, Carbon Dioxide 26.0, Anion Gap 5, BUN 18, Creatinine 0.80, Estim Creat Clear Calc 56.93, Est GFR (MDRD) Af Amer 93, Est GFR (MDRD) Non-Af 77, BUN/Creatinine Ratio 22.4 H, Glucose 171 H, Calcium 8.7, Total Bilirubin 1.70 H, Direct Bilirubin 0.63 H, AST 16, ALT 17, Alkaline Phosphatase 62, Total Protein 5.7 L, Albumin 2.9 L, Globulin 2.8, Lipase 71 L 05/29/21 10:13: Phosphorus 3.7 05/29/21 10:13: B-Natriuretic Peptide 142.8 H 05/29/21 10:13: Crossmatch See Detail 05/29/21 12:15: COVID-19 (ZINA) Not Detected 05/29/21 20:20: Hgb 6.7 L, Hct 22.4 L 05/30/21 04:10: WBC 3.3 L, RBC 2.75 L, Hgb 7.4 L, Hct 24.3 L, MCV 88.4, MCH 26.9 L, MCHC 30.5 L D, RDW Std Deviation 54.5 H, RDW Coeff of Saundra 17.2 H, Plt Count 32 L*, MPV TNP, Immature Gran % (Auto) 0.600, Neut % (Auto) 70.3 H, Lymph % (Auto) 16.2 L, [place] % (Auto) 10.8 H, Eos % (Auto) 1.8, Baso % (Auto) 0.3, Absolute Neuts (auto) 2.3, Absolute Lymphs (auto) 0.54 L, Nucleated RBC % 0.6, Diff Path Review May foll, Polychromasia 1+, Anisocytosis 1+, Tear Drop Cells RARE, Ovalocytes 1+ 05/30/21 04:10: Sodium 140, Potassium 4.3, Chloride 108 H, Carbon Dioxide 25.0, Anion Gap 7, BUN 14, Creatinine 0.78, Estim Creat Clear Calc 58.39, Est GFR (MDRD) Af Amer 97, Est GFR (MDRD) Non-Af 80, BUN/Creatinine Ratio 18.1, Glucose 141 H, Calcium 8.2 L, Total Bilirubin 3.70 H, AST 33, ALT 20, Alkaline Phosphatase 58, Total Protein 5.6 L, Albumin 2.7 L, Globulin 2.9, Albumin/Globulin Ratio 0.9 05/30/21 06:47: POC Glucose 155 H Micro: Microbiology 05/29/21 10:40 Stool Stool Occult Blood (ISIDRO) - Final Radiography Diagnostic Testing: Radiology Impression Chest X-Ray 05/29/21 14:25 IMPRESSION: Nonacute portable x-ray examination of the chest. Electronically Signed: Ollie Novak MD (Brooks) at 15:00 EST , Physical Exam Narrative General: Alert, awake, comfortable, oriented x3. HEENT: Icterus present. Atraumatic, PERRLA, EOMI, Normocephalic Oral: Oral mucosa moist. No Gingival or Mucosal Lesions/ Ulcerations Neck: Supple, No JVD, Negative Carotid Bruits Lungs: Air entry diminished in bilateral lung bases. Bilateral wheezing is improved Cardiovascular: Regular rate, Regular Rhythm, Normal S1, Normal S2, No murmurs Abdomen: Bowel Sounds Present, Soft, Non Tender, fat abdomen. No fluid thrill. : No renal angle tenderness. No suprapubic tenderness. Extremities: Bilateral lower extremity pitting edema, Capillary Refill Less than 3 Seconds Skin: No rashes, No breakdown Musculoskeletal: ROM restricted. No Tenderness to Palpation of Joints or Extremities Neurological: Cranial nerves II-XII grossly intact, DTR 2+/4,/24/5 at major joints Psych/Mental Status: Flat affect. Assessment & Plan Assessment/Plan (1) Severe anemia: (2) Decompensation of cirrhosis of liver: PLAN: 1. Acute on chronic normochromic anemia type suspicion of variceal bleeding: Patient is being admitted in ICU. Patient had group and crossmatch, 2 units PRBC and 2 units single platelet donor already ordered in ED. Protonix 80 mg IV bolus and then continuous infusion ordered. Octreotide drip and ceftriaxone 1 g IV daily first dose now ordered. Discussed with GI. No antiplatelet/anticoagulant, contraindicated. 05/30: Patient had 3 units of PRBC transfusion and 2 units of single donor platelet transfusion. Posttransfusion H&H 7.4/24%. Platelet count 32,000. Monitor H&H every 6 hourly. CBC and CMP daily a.m. Magnesium and phosphorus ordered. Keep the patient n.p.o. Blood pressure in normal range but will hold antihypertensive, diuretics and beta-samara. Serum phosphorus level 3.7. BNP slightly elevated probably due to fluid overload from decompensated cirrhosis. Continue Protonix drip and octreotide drip. Plan for EGD today. Stool for occult blood is negative. 2. Pancytopenia with leukopenia, lymphopenia, severe thrombocytopenia probably due to cirrhosis with COVID-19 infection since May 16, 2021: Patient also had COVID-19 PCR positive on 05/16/2021. Rapid antigen positive. Covid 19 enhanced isolation. Chest x-ray PA and lateral ordered. 05/30: Chest x-ray individually reviewed no acute pulmonary finding. 3. Asthma COPD overlap: Patient is not short of breath but has chronic wheezing and states she has asthma. On albuterol as needed. Patient is on albuterol inhaler montelukast and loratadine at home 05/30: Wheezing is improved. No respiratory distress. 4. 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 Right upper quadrant sonogram ordered. At home patient is on Lasix, spironolactone, simvastatin, omeprazole, carvedilol and sucralfate. Home medication reconciliation done 05/30: After EGD and when oral is allowed and patient remains hemodynamically stable, will resume home medications. 5. Diabetes mellitus type 2: Accu-Chek insulin coverage Humalog sliding scale. 6 other comorbidities dyslipidemia, low functional activity, anxiety and depression. CODE STATUS: Full code unverified Total time of the visit including total time spent in counseling or coordination of care, (more than 50% of the total time, spent in obtaining medical information from nurses and other ancillary care providers,explaining to the patient about labs, imaging, diagnosis and management), discussion with risk and insurance consultant,, review of labs and imaging is 35 minutes. Clinical Impression(s) from Imaging Studies Chest X-Ray 05/29/21 14:25 IMPRESSION: Nonacute portable x-ray examination of the chest. Electronically Signed: Ollie Novak MD (Brooks) at 15:00 EST , Microbiology Past 72 Hours 05/29/21 10:40 Stool Stool Occult Blood (ISIDRO) - Final Charges/Coding Visit Charges Inpatient E&M: 47922 Subs Hosp L3
[2021-05-30] MEDS: Ceftriaxone 1 GM/50 ML BAG IV (09:06)
[2021-05-30 11:47] LABS: Hematocrit 25.3 % (37-47); Hemoglobin 7.8 g/dL (12.0-15.0); POSITIVE COUNT YES
--- NOTE | 2021-05-30 12:15 | NURSING ---
Patient transported by OR staff for planned EGD with Dr Saini. Patient to be transferred to PCU room 118 after procedure completed. Patient awake, alert and agrees with plan of transfer to new room after procedure. Report called to Joellen VETERINARY MICROBIOLOGIST.
--- NOTE | 2021-05-30 12:43 | PN_ITS ---
Subjective Subjective Patient under went an upper endoscopy. She was discovered to have multiple telangiectasias seen in the stomach which were treated with APC. Previous clip was seen in the stomach. There was no stigmata bleeding at the site. She had very minimal esophageal varices. There was some very small nonbleeding gastric varices seen. All bleeding was stopped. Objective Data Objective Data Vital Signs: Vital Signs Temp Pulse Resp BP Pulse Ox 100.6 F H 83 20 H 105/75 96 05/30/21 11:59 05/30/21 11:59 05/30/21 11:59 05/30/21 11:59 05/30/21 11:59 Oxygen Delivery Method Room Air Weight: 215 lb 13.321 oz Body Mass Index (BMI) 38.7 Intake & Output: Intake and Output for Last 24 Hours 05/28/21 05/29/21 05/30/21 23:59 23:59 23:59 Intake Total 545.21 / 545.21 919.96 / 919.96 Output Total 450 / 450 Balance 95.21 / 95.21 919.96 / 919.96 Lab / Micro Data Result Diagrams: 05/30/21 11:35 05/30/21 04:10 Labs: Laboratory Results - last 24 hr 05/29/21 10:13: Blood Type O POSITIVE, Antibody Screen NEGATIVE, Crossmatch See Detail 05/29/21 10:13: Diff Path Review Reviewed 05/29/21 10:13: B-Natriuretic Peptide 142.8 H 05/29/21 10:13: Crossmatch See Detail 05/29/21 12:15: COVID-19 (ZINA) Not Detected 05/29/21 20:20: Hgb 6.7 L, Hct 22.4 L 05/30/21 04:10: WBC 3.3 L, RBC 2.75 L, Hgb 7.4 L, Hct 24.3 L, MCV 88.4, MCH 26.9 L, MCHC 30.5 L D, RDW Std Deviation 54.5 H, RDW Coeff of Saundra 17.2 H, Plt Count 32 L*, MPV TNP, Immature Gran % (Auto) 0.600, Neut % (Auto) 70.3 H, Lymph % (Auto) 16.2 L, Callahan % (Auto) 10.8 H, Eos % (Auto) 1.8, Baso % (Auto) 0.3, Abs olute Neuts (auto) 2.3, Absolute Lymphs (auto) 0.54 L, Nucleated RBC % 0.6, Diff Path Review May foll, Polychromasia 1+, Anisocytosis 1+, Tear Drop Cells RARE, Ovalocytes 1+ 05/30/21 04:10: Sodium 140, Potassium 4.3, Chloride 108 H, Carbon Dioxide 25.0, Anion Gap 7, BUN 14, Creatinine 0.78, Estim Creat Clear Calc 58.39, Est GFR ( MDRD) Af Amer 97, Est GFR (MDRD) Non-Af 80, BUN/Creatinine Ratio 18.1, Glucose 141 H, Calcium 8.2 L, Total Bilirubin 3.70 H, AST 33, ALT 20, Alkaline Phosphatase 58, Total Protein 5.6 L, Albumin 2.7 L, Globulin 2.9, Albumin/Globulin Ratio 0.9 05/30/21 06:47: POC Glucose 155 H 05/30/21 11:35: Hgb 7.8 L, Hct 25.3 L Micro: Microbiology 05/29/21 10:40 Stool Stool Occult Blood (ISIDRO) - Final Radiography Diagnostic Testing: Radiology Impression Chest X-Ray 05/29/21 14:25 IMPRESSION: Nonacute portable x-ray examination of the chest. Electronically Signed: Ollie Novak MD (Brooks) at 15:00 EST Reading Location ID and State: [address] [place] [address] , Service support , Physical Exam Const alert General Appearance: cooperative Orientation / Consciousness: oriented to person HEENT hearing grossly normal bilaterally Head and Scalp: normal to inspection Face and Sinus: face symmetric Nose: external nose normal Mouth: oral and palatal mucosa normal Eyes conjunctivae normal General Eye: normal appearance of both eyes Neck full ROM General: normal visual inspection Lymph Lymphatic: no lymphadenopathy noted Chest inspection of chest normal and palpation of chest normal Chest: symmetrical chest wall rise Resp normal respiratory effort Effort and Inspection: able to speak in complete sentences Cardio regular rate GI non-distended Percussion: normal to percussion Rectal Exam: deferred Neuro Speech: speech normal Gait (Neuro): normal gait Assessment & Plan Assessment/Plan (1) Severe anemia: PLAN: She is status post EGD with APC to bleeding telangiectasias. She can have a liquid diet today. She will need Carafate 4 times daily and PPI twice a day for approximately a month. Her hemoglobin is much improved after blood transfusion and platelet count is holding steady at 32. (2) Decompensation of cirrhosis of liver: PLAN: Would recommend to check an ammonia. She should be on lactulose at least 20 cc twice a day. Further recommendations to follow. Charges/Coding Visit Charges Inpatient E&M: 66208 Subs Hosp L2
--- NOTE | 2021-05-30 12:57 | OP.EGD_ITS ---
Patient Name: Rosi Thornton Procedure Date: 05/30/2021 11:47 AM Date of : 1960 Age: 61 Procedure: Upper GI endoscopy Indications: Hematemesis Providers: Arturo Saini DO Medicines: See the Anesthesia note for documentation of the administered medications Patient Profile: This is a 61 year old female. Refer to note in patient chart for documentation of history and physical. Patient has symptoms. She is status post EGD for treatment of bleeding within the past three months. Complications: No immediate complications. Procedure: Pre-Anesthesia Assessment: - Prior to the procedure, a History and Physical was performed, and patient medications and allergies were reviewed. The risks and benefits of the procedure and the sedation options and risks were discussed with the patient. All questions were answered and informed consent was obtained. Patient identification and proposed procedure were verified by the physician in the pre-procedure area. Mental Status Examination: alert and oriented. Airway Examination: normal oropharyngeal airway and neck mobility. Respiratory Examination: clear to auscultation. CV Examination: normal. Prophylactic Antibiotics: The patient does not require prophylactic antibiotics. Prior Anticoagulants: The patient has taken no previous anticoagulant or antiplatelet agents. ASA Grade Assessment: II - A patient with mild systemic disease. After reviewing the risks and benefits, the patient was deemed in satisfactory condition to undergo the procedure. The anesthesia plan was to use moderate sedation / analgesia (conscious sedation). Immediately prior to administration of medications, the patient was re-assessed for adequacy to receive sedatives. The heart rate, respiratory rate, oxygen saturations, blood pressure, adequacy of pulmonary ventilation, and response to care were monitored throughout the procedure. The physical status of the patient was re-assessed after the procedure. After obtaining informed consent, the endoscope was passed under direct vision. Throughout the procedure, the patient's blood pressure, pulse, and oxygen saturations were monitored continuously. The gastroscope was introduced through the mouth, and advanced to the second part of duodenum. The upper GI endoscopy was accomplished without difficulty. The patient tolerated the procedure well. Moderate Sedation: Moderate (conscious) sedation was administered by the endoscopy nurse and supervised by the endoscopist. The patient's oxygen saturation, heart rate, blood pressure and response to care were monitored. Total physician intraservice time was 15 minutes. Scope In: 12:25:33 PM Scope Out: 12:39:39 PM Total Procedure Duration Time 0 hours 14 minutes 6 seconds Findings: Grade I varices were found in the lower third of the esophagus. They were 5 mm in largest diameter. Severe portal hypertensive gastropathy was found in the entire examined stomach. Type 1 gastroesophageal varices (GOV1, esophageal varices which extend along the lesser curvature) with no bleeding were found in the cardia. There were no stigmata of recent bleeding. They were 5 mm in largest diameter. Patchy mildly congested mucosa was found in the gastric body. Multiple 5 mm bleeding angioectasias were found in the gastric body and on the greater curvature of the stomach. Coagulation for hemostasis using argon plasma at 0.3 liters/minute and 20 betancourt was successful. Estimated blood loss was minimal. The second portion of the duodenum was normal. Impression: - Grade I esophageal varices. - Portal hypertensive gastropathy. - Type 1 gastroesophageal varices (GOV1, esophageal varices which extend along the lesser curvature), without bleeding. - Congestive gastropathy. - Multiple bleeding angioectasias in the stomach. Treated with argon plasma coagulation (APC). - Normal second portion of the duodenum. - No specimens collected. Recommendation: - Return patient to [facility] for [facility] care. - Clear liquid diet today. - Continue present medications. Procedure Code(s): --- Professional --- 40723, Esophagogastroduodenoscopy, flexible, transoral; with control of bleeding, any method 30288, 59, Moderate sedation services provided by the same physician or other qualified health caregiver assisted living performing the diagnostic or therapeutic service that the sedation supports, requiring the presence of an independent trained observer to assist in the monitoring of the patient's level of consciousness and physiological status; initial 15 minutes of intraservice time, patient age 5 years or older CPT copyright 2017 [employer]. All rights reserved. The codes documented in this report are preliminary and upon brazing machine setter review may be revised to meet current compliance requirements. Arturo Saini DO 05/30/2021 12:57:23 PM This report has been signed electronically. Number of Addenda: 1 Note Initiated On: 05/30/2021 11:47 AM Addendum Number: 1 Addendum Date: 01/05/2022 6:52:06 AM MAC was used for sedation during this procedure. Arturo Saini DO 01/05/2022 6:52:10 AM This report has been signed electronically.
--- NOTE | 2021-05-30 12:58 | OP.CCLET_ITS ---
01/05/2022 Maxwell Lares [address] [place] [address] Re : Upper GI endoscopy procedure for Rosi Thornton Dear Dr. Lares This procedure was performed on Sunday, May 30, 2021. My impressions and recommendations are as follows: Impressions : - Grade I esophageal varices. - Portal hypertensive gastropathy. - Type 1 gastroesophageal varices (GOV1, esophageal varices which extend along the lesser curvature), without bleeding. - Congestive gastropathy. - Multiple bleeding angioectasias in the stomach. Treated with argon plasma coagulation (APC). - Normal second portion of the duodenum. - No specimens collected. Recommendations : - Return patient to [facility] for ongoing care. - Clear liquid diet today. - Continue present medications. My findings are described in the full procedure note, which is enclosed. If I can be of further assistance, please feel free to contact me at . Sincerely, Arturo Saini, 05/30/2021 12:57:23 PM This report has been signed electronically.
[2021-05-30] MEDS: Sucralfate 1 GM Tablet PO ×3 (14:22→20:47)
[2021-05-30] MEDS: Lactulose 20 GM/30 ML UDC 10 GM PO ×2 (14:22→20:47)
--- NOTE | 2021-05-30 15:36 | CASEMGMT ---
Social Work SW met with pt in room and introduced self and role of SW. Pt stating she was issued a request to vacate apartment by July 16 and she does not have a place to go. SW provided pt with resources for [facility] Support and [facility] along with list of apartment options. Pt also states she has depression and anxiety which is normally well controlled with Zoloft but pt housing issues are exacerbating depression and anxiety. Pt stating she saw a counselor many years ago but now states she does not trust them and is not open to counseling resources. Pt expressing many losses in last few years and tearful throughout conversation. SW provided emotional support and reviewed coping strategies. Pt states her sister is very supportive and helpful to her and helps her will all medical issues. SW inquired about HCPOA and pt states she has not completed. SW explained to pt that her sons will be health care decision makers in the event pt is not able to make decisions for herself. Pt indicates she would want this to be her sister. SW encouraged pt to complete a HCPOA naming her sister. Pt declines at this time. Information and SW rack card provided and SW encouraged pt to complete while at hospital or make and outpatient appointment. No further SW needs at this time. Pt appreciative of visit and information provided. CHERRI Zaidi
[2021-05-30] MEDS: 0.9% Saline Lock 10 ML Syringe IV (16:11)
[2021-05-30] MEDS: oxyCODONE 5 MG Tablet PO (20:47)
[2021-05-30] MEDS: Albuterol 2.5 MG/3 ML VIAL.NEB. INHALATION (22:55)
[2021-05-31 00:50] LABS: Hematocrit 25.8 % (37-47); Hemoglobin 7.7 g/dL (12.0-15.0)
[2021-05-31 02:00] VITALS: BP 124/72; PULSE 80; RESP 18; TEMP 36.8; O2SAT 97
[2021-05-31] MEDS: Morphine 2 MG/ML Syringe IV (02:45)
[2021-05-31 03:01] VITALS: PULSE 79
[2021-05-31] MEDS: Lactulose 20 GM/30 ML UDC 10 GM PO (05:59)
[2021-05-31] MEDS: Sucralfate 1 GM Tablet PO (05:59)
[2021-05-31 06:46] LABS: Absolute Lymphocyte Count 0.56 X10^3/uL (0.83-4.51); Eosinophil# 0.09 X10^3/uL; Hemoglobin 7.4 g/dL (12.0-15.0); Lymphocyte # 0.56 X10^3/ul (0.83-4.51); Lymphocyte % 18.8 % (19-41); Mean Corp Hgb Conc 29.6 g/dL (32-36); Mean Corpuscular Hgb 26.8 pg (27.0-32.0); Mean Corpuscular Volume 90.6 fL (81-99); Monocyte# 0.32 X10^3/uL; Monocyte% 10.7 % (0-10); NRBC Flagged by Analyzer 0 % (0-5); Neutrophil # 1.98 X10^3/uL (2.7-7.7); Neutrophil % 66.5 % (47-70); POSITIVE COUNT YES; POSITIVE DIFFERENTIAL YES; RBC Distribution Width CV 17.7 % (11.6-14.6); RBC Distribution Width SD 57.1 fl (35.1-43.9); Red Blood Count 2.76 M/mm3 (4.2-5.4)
[2021-05-31 06:53] LABS: Differential Indicated SCAN CRITERIA MET; Platelet Count 32 K/mm3 (150-450)
[2021-05-31 06:54] VITALS: PULSE 81
[2021-05-31 07:13] LABS: Differential Comment SCANNED
[2021-05-31 07:14] LABS: Anisocytosis 2+; Hypochromasia 1+; Macrocytosis 1+; Microcytosis 1+; Polychromasia 1+
[2021-05-31 07:21] LABS: AST(SGOT) 28 U/L (15-37); Alanine Aminotransfer ALT/SGPT 19 U/L (13-56); Albumin, Serum 2.8 g/dL (3.2-5.0); Alkaline Phosphatase 56 U/L (45-117); Anion Gap 6 (5-15); BUN 9 mg/dL (7-18); BUN/Creat Ratio 12.1 RATIO (10-20); Calcium,Total 8.2 mg/dL (8.5-10.1); Chloride 107 mmol/L (98-107); Creatinine, Serum 0.74 mg/dL (0.55-1.02); EST Glomerular Filtration Rate 84 mL/min (>60); Est Glom Filt Rate - Afr Amer 102 mL/min (>60); Estimated Creatinine Clearance 61.54 ml/min; Globulin 2.8 g/dL (2.2-4.2); Glucose 161 mg/dL (74-106); Potassium 3.6 mmol/L (3.5-5.1); Protein, Total 5.6 g/dL (6.4-8.2); Sodium Level 139 mmol/L (136-145)
[2021-05-31] MEDS: Ceftriaxone 1 GM/50 ML BAG IV (08:23)
[2021-05-31 08:28] VITALS: BP 116/68; PULSE 83; RESP 18; TEMP 37.2; O2SAT 93
[2021-05-31] MEDS: Albuterol 2.5 MG/3 ML VIAL.NEB. INHALATION (08:50)
[2021-05-31 08:51] VITALS: PULSE 79; RESP 16; O2SAT 98
--- NOTE | 2021-05-31 09:49 | CASEMGMT ---
Therapy recommending HHC/OP and this RN CM to room to discuss d/c plan. Pt declines need for any HHC/OP therapy at this time. Pt aware that she can contact PCP for any further therapy at discharge. Pt voices no further questions/concerns/needs. SStana CARRINGTON CM
[2021-05-31 09:50] LABS: MG Sendout 1.6 mg/dL (1.6-2.3)
--- NOTE | 2021-05-31 11:11 | PCM.DC.SUM ---
Providers Date of Admission: 05/29/21 Primary Care Physician: Dr. Maxwell Lares MD Consultations 05/29/21 13:38 Consult: Gastroenterology Routine Consulting Provider: Meagan Gastroenter[facility] Reason for Consult: Variceal bleed EMERGENT Consult: No Notified: Yes Date Notified: 05/29/21 Time Notified: 11:30 Method of Notification: Verbal Comments:: Notified by Dr. Lewis Consult: Rehabilitation Psychologist / Pulmonary Medicine Routine Consulting Provider: Pulmonary Medicine [facility] Reason for Consult: gi bleed, cirrhosis EMERGENT Consult: No Notified: Yes Date Notified: 05/29/21 Time Notified: 12:07 Method of Notification: Text Reason For Visit: CHRISTENSEN CIRRHOSIS, SEVERE ANEMIA Diagnosis Discharge Diagnosis (1) Decompensation of cirrhosis of liver: Status: Acute Code(s): K72.90 - Hepatic failure, unspecified without coma; K74.60 - Unspecified cirrhosis of liver (2) Severe anemia: Status: Acute Code(s): D64.9 - Anemia, unspecified (3) GI bleeding: Status: Acute Code(s): K92.2 - Gastrointestinal hemorrhage, unspecified Medications at Discharge Home Medications gabapentin 800 mg PO DAILY 11/03/15 loratadine [Allergy Relief (loratadine)] 10 mg PO DAILY 11/03/15 metformin 500 mg PO DAILY 11/03/15 omeprazole 40 mg PO DAILY 11/03/15 sertraline 200 mg PO QHS 11/03/15 simvastatin 40 mg PO QHS 11/03/15 albuterol sulfate 1 - 2 puff INHALATION Q4H PRN PRN 04/07/19 furosemide [Lasix] 20 mg PO DAILY 03/18/21 lactulose 15 ml PO TID 03/18/21 montelukast 10 mg PO DAILY 03/18/21 spironolactone 50 mg PO DAILY 03/18/21 carvedilol 3.125 mg PO BID 05/29/21 pantoprazole 40 mg PO BID 05/29/21 sucralfate 1 g PO 4X/DAY 05/29/21 ciprofloxacin HCl [Cipro] 500 mg PO BID #6 tab 05/31/21 dicyclomine 10 mg PO BID #60 cap 05/31/21 Hospital Course Operations None Procedures Blood transfusion and EGD Summary of Care Provided Minutes Spent on Discharge: 41 Hospital Course: Mrs. Thornton is a 61-year-old white female with a history of Christensen cirrhosis who was sent to the emergency department by her pipe fitter fire spr[employer] Dr. Quiroz for anemia with a hemoglobin around 5. 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 Upon admission her vital signs were stable and she had no issues with her hemodynamics however her hemoglobin was found to be 4.9 with a platelet count of 29,000 and an INR of 1.6 with normal transaminases and a bilirubin of 1.7. Hemoccult was negative for blood. Upon review of the chart she had an EGD that was performed by Dr. Gaitan on 03/24/2021 which showed grade 1-2 esophageal varices and bile reflux gastritis with portal hypertensive gastropathy. Given her severe anemia the patient was admitted to the ICU and transfused 2 units of packed red blood cells and 2 units of platelets. Given her history of a consultation to gastroenterology was placed and she was placed on SBP prophylaxis with ceftriaxone given her history as well as octreotide and a PPI infusion. She was taken for an EGD on 05/30/2021 which demonstrated grade 1 varices in the lower third of the esophagus that were 5 mm in diameter at largest, severe portal hypertensive gastropathy, type I gastroesophageal varices that extended into the lesser curvature of the stomach with no stigmata of bleeding in the cardia, patchy mild congested mucosa in the gastric body with multiple 5 mm bleeding angio ectasias in the gastric body and the greater curvature of the stomach. Coagulation was utilized for hemostasis with argon plasma and successful hemostasis was documented. The duodenum was found to be normal. She was monitored for 24 hours with a repeat hemoglobin on the a.m. of 05/31/2021 which showed stable hemoglobin at 7.4. Her platelets remained stable as well at 32,000. She tolerated a clear liquid diet without any difficulty and at discharge was complaining of some intermittent abdominal cramping that she reports is chronic. She was given Bentyl and discharged home with a short course of this as well. Given her stable hemoglobin/platelets and ability to take p.o. without any difficulty she was discharged home in stable condition on 05/31/2021. She had completed 2 days of SBP prophylaxis and with her GI bleeding we will continue this for 3 more days to complete a 5-day course. She was discharged home with ciprofloxacin to complete her antibiotic course. She is to remain on her home medications including her care 8 PPI and Aldactone for her liver disease and follow-up with gastroenterology in 2 weeks. She is to follow-up with Dr. Quiroz as recommended by him his office and her PCP within 2 weeks. 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 Patient states she has some intermittent abdominal cramping which is normal for her at baseline Const alert Constitutional Narrative: Obese white female sitting up in a chair at the bedside, watching television, patient appears comfortable and nontoxic General Appearance: cooperative Orientation / Consciousness: awake Nutritional Appearance: obese HEENT normocephalic, head/scalp atraumatic, hearing grossly normal bilaterally and moist oral mucous membranes HEENT Narrative: Dentition is fair, tongue is green from clear liquid diet, Mallampati is 2-3, no thrush Eyes PERRL and EOMs intact bilaterally Eyes Narrative: Pale conjunctiva bilaterally, no scleral icterus Neck no lymphadenopathy, supple, no JVD and no carotid bruits Neck Narrative: Trachea midline, no thyroid large but noted Resp normal respiratory effort, no retractions, no use of accessory muscles and clear to auscultation bilaterally Auscultation: Negative for crackles, rales, rhonchi or wheezes Cardio regular rate, regular rhythm, S1 normal heart sound, S2 normal heart sound, no murmurs, no rub, no gallops, no clicks and no JVD GI normal to inspection, nondistended, normoactive bowel sounds, soft to palpation and non-distended GI Narrative: Mild diffuse tenderness Extremity Extremity Narrative: Trace bilateral lower extremity edema, no clubbing or cyanosis, pedal pulses are 2+ Skin no rashes or lesions noted, no wounds, skin turgor normal and no jaundice Neuro oriented x3, CN's II-XII intact bilaterally, moves all extremities and no focal motor deficits Sensorium / Orientation: awake and alert Motor Exam: strength 5/5 throughout Psych Psych Narrative: Affect is flat and would seem somewhat depressed Weight / BMI Weight Weight: 98.7 kg Body Mass Index (BMI) 38.7 ABG / Lab / Microbiology Data Result Diagrams: 05/31/21 06:24 05/31/21 06:24 Laboratory: Laboratory Results - last 24 hr 05/30/21 04:10: Magnesium 1.6 05/30/21 11:35: Hgb 7.8 L, Hct 25.3 L 05/31/21 00:42: Hgb 7.7 L, Hct 25.8 L 05/31/21 06:24: WBC 3.0 L, RBC 2.76 L, Hgb 7.4 L, Hct 25.0 L, MCV 90.6, MCH 26.8 L, MCHC 29.6 L, RDW Std Deviation 57.1 H, RDW Coeff of Saundra 17.7 H, Plt Count 32 L*, MPV TNP, Immature Gran % (Auto) 1.000 H, Neut % (Auto) 66.5, Lymph % (Auto) 18.8 L, Irion % (Auto) 10.7 H, Eos % (Auto) 3.0, Baso % (Auto) 0.0, Absolute Neuts (auto) 2.0, Absolute Lymphs (auto) 0.56 L, Nucleated RBC % 0, Differential Comment SCANNED, Polychromasia 1+, Hypochromasia 1+, Anisocytosis 2+, Microcytosis 1+, Macrocytosis 1+ 05/31/21 06:24: Sodium 139, Potassium 3.6, Chloride 107, Carbon Dioxide 26.0, Anion Gap 6, BUN 9, Creatinine 0.74, Estim Creat Clear Calc 61.54, Est GFR (MDRD) Af Amer 102, Est GFR (MDRD) Non-Af 84, BUN/Creatinine Ratio 12.1, Glucose 161 H, Calcium 8.2 L, Total Bilirubin 2.80 H, AST 28, ALT 19, Alkaline Phosphatase 56, Total Protein 5.6 L, Albumin 2.8 L, Globulin 2.8, Albumin/Globulin Ratio 1.0 Microbiology: Microbiology 05/29/21 10:40 Stool Stool Occult Blood (ISIDRO) - Final D/C Instructions Discharge Diet: Low fat / Low cholesterol and 1800 Calorie Control Diet Discharge Activity: Return to Normal Activity Meaningful Use Info Meaningful Use Diagnoses (Choose all that apply): None applicable Discharge Plan Admission Admit Date/Time: 05/29/21 11:41 Primary Reason for Your Visit: anemia Attending Provider: Gricel Oro Primary Care Provider: Maxwell Lares Consulting Providers: Fco Billings ; Navneet Meadows ; Ashlie Sosa FURNACE LOADER Discharge Orders/Prescriptions Prescriptions: New dicyclomine 10 mg capsule 10 mg PO BID Qty: 60 RF: 0 ciprofloxacin HCl [Cipro] 500 mg tablet 500 mg PO BID Qty: 6 RF: 0 Continued metformin 500 MG tablet 500 mg PO DAILY RF: 0 sertraline 100 MG tablet 200 mg PO QHS RF: 0 omeprazole 40 MG capsule,delayed release(DR/EC) 40 mg PO DAILY RF: 0 simvastatin 40 MG tablet 40 mg PO QHS RF: 0 gabapentin 800 MG tablet 800 mg PO DAILY RF: 0 loratadine [Allergy Relief (loratadine)] 10 MG tablet 10 mg PO DAILY RF: 0 albuterol sulfate 1 INHALER inhaler 1 - 2 puff inhalation Q4H PRN PRN (Reason: Sob &/Or Wheezing) RF: 0 montelukast 10 mg tablet 10 mg PO DAILY RF: 0 furosemide [Lasix] 20 mg Tablet 20 mg PO DAILY RF: 0 spironolactone 50 mg Tablet 50 mg PO DAILY RF: 0 lactulose 10 gram/15 mL Solution 15 ml PO TID RF: 0 sucralfate 1 gram tablet 1 g PO 4X/DAY RF: 0 carvedilol 3.125 mg tablet 3.125 mg PO BID RF: 0 pantoprazole 40 mg tablet,delayed release (DR/EC) 40 mg PO BID RF: 0 Referrals / Follow Up: Marivel Quiroz MD [STAFF PHYSICIAN] - See Referral Note (As directed by Dr. Quiroz) Arturo Saini DO [STAFF PHYSICIAN] - Within 2 Weeks (Liver disease/Anemia) Maxwell Lares MD [Primary Care Provider] - Within 2 Weeks Disposition Disposition (needs filled in before D/C Order can be placed): Home, Self Care Charges/Coding Visit Charges Inpatient E&M: 83483 Disch Hosp
[2021-06-02 09:42] LABS: Pathologist Review Reviewed
[2021-06-02 13:54] LABS: Pathologist Review Reviewed
== END 2021-05-31 13:01 | disposition home or self-care (01) | DRG 253 ==
LOC: ED 10:41 → ICU 14:27 → PCU 05-30 16:43
PROVIDERS: Internal Medicine Gastroenterology; Admitting Provider Internal Medicine; Emergency Provider Student in an Organized Health Care Education/Training Program; PCP Internal Medicine; Visit Provider Internal Medicine
PROC: 0DJ08ZZ Inspection of Upper Intestinal Tract, Via Natural or Artificial Opening Endoscopic (ICD-10-PCS; CPT 43235; principal; 2021-05-30 16:55)
DX: K31.811 Angiodysplasia of stomach and duodenum with bleeding (principal); D61.818 Other pancytopenia; K72.90 Hepatic failure, unspecified without coma; K76.6 Portal hypertension; D62 Acute posthemorrhagic anemia; K74.60 Unspecified cirrhosis of liver; J44.9 Chronic obstructive pulmonary disease, unspecified; E11.9 Type 2 diabetes mellitus without complications; I85.10 Secondary esophageal varices without bleeding; F41.9 Anxiety disorder, unspecified; K21.9 Gastro-esophageal reflux disease without esophagitis; K31.89 Other diseases of stomach and duodenum; E78.5 Hyperlipidemia, unspecified; K75.81 Nonalcoholic steatohepatitis (NASH); K29.60 Other gastritis without bleeding; I10 Essential (primary) hypertension; I86.4 Gastric varices; E66.9 Obesity, unspecified; F32.A Depression, unspecified; G89.29 Other chronic pain; Z68.39 Body mass index [BMI] 39.0-39.9, adult; Z79.84 Long term (current) use of oral hypoglycemic drugs; Z79.899 Other long term (current) drug therapy; Z86.73 Personal history of transient ischemic attack (TIA), and cerebral infarction without residual deficits; Z86.16 Personal history of COVID-19; Z87.891 Personal history of nicotine dependence
CPT/HCPCS: 36415; 71045; 80048; 80053; 80076; 82274; 82962; 83690; 83735; 83880; 84100; 85014; 85018; 85025; 85610; 86644; 86850; 86900; 86901; 86920; 86922; 86965; 87635; 93005; 94640; 97162; 97166; 97802; 99284; J7030; J7120; P9016; P9035; A4216; J3490; U0003; U0005

== ENCOUNTER 2021-06-16 09:41 | Outpatient (CLI) | payer MEDICAID, SELFPAY ==
[2021-06-16 10:19] LABS: Erythrocyte Sedimentation Rate 39 mm/hr (0-30)
[2021-06-16 10:22] LABS: Absolute Lymphocyte Count 0.54 X10^3/uL (0.83-4.51); Absolute Neutrophil Count 1.6 X10^3/uL (2.0-7.7); Basophil# 0.01 X10^3/uL; Basophil% 0.4 % (0-1); Eosinophil# 0.03 X10^3/uL; Eosinophils% 1.3 % (0-5); Hematocrit 28.3 % (37-47); Hemoglobin 8.5 g/dL (12.0-15.0); International Normalized Ratio 1.6; Lymphocyte # 0.54 X10^3/ul (0.83-4.51); Lymphocyte % 22.6 % (19-41); Mean Corpuscular Hgb 27.7 pg (27.0-32.0); Mean Corpuscular Volume 92.2 fL (81-99); Monocyte# 0.25 X10^3/uL; Monocyte% 10.5 % (0-10); NRBC Flagged by Analyzer 0 % (0-5); Neutrophil # 1.55 X10^3/uL (2.7-7.7); Neutrophil % 64.8 % (47-70); POSITIVE COUNT YES; POSITIVE DIFFERENTIAL YES; POSITIVE MORPHOLOGY YES; Partial Thromboplast Time 47.6 Seconds (24.1-36.2); Platelet Count 60 K/mm3 (150-450); Prothrombin Time (Protime)PT. 17.9 SECONDS (11.7-14.9); RBC Distribution Width CV 21.4 % (11.6-14.6); RBC Distribution Width SD 71.3 fl (35.1-43.9); Red Blood Count 3.07 M/mm3 (4.2-5.4); White Blood Count 2.4 K/mm3 (4.4-11.0)
[2021-06-16 10:24] LABS: Differential Indicated SCAN CRITERIA MET
[2021-06-16 10:47] LABS: ALB/GLOB Ratio 0.7 RATIO (0.9-2.4); AST(SGOT) 22 U/L (15-37); Alanine Aminotransfer ALT/SGPT 13 U/L (13-56); Albumin, Serum 2.4 g/dL (3.2-5.0); Alkaline Phosphatase 62 U/L (45-117); Anion Gap 4 (5-15); BUN 10 mg/dL (7-18); BUN/Creat Ratio 21.1 RATIO (10-20); Calcium,Total 8.3 mg/dL (8.5-10.1); Chloride 108 mmol/L (98-107); Creatinine, Serum 0.47 mg/dL (0.55-1.02); EST Glomerular Filtration Rate 141 mL/min (>60); Est Glom Filt Rate - Afr Amer 171 mL/min (>60); Ferritin 52 ng/mL (8-252); Globulin 3.5 g/dL (2.2-4.2); Glucose 126 mg/dL (74-106); LDH 216 U/L (84-246); Potassium 3.4 mmol/L (3.5-5.1); Protein, Total 5.9 g/dL (6.4-8.2); Sodium Level 141 mmol/L (136-145)
[2021-06-16 10:53] LABS: Anisocytosis 1+; Macrocytosis 1+; Microcytosis 1+; Ovalocyte 1+; Platelet Estimate MOD DEC (ADEQ); Poikilocytosis 1+; Polychromasia 1+
[2021-06-17 16:10] LABS: Anti-Centromere B Ab <0.2 AI (0.0-0.9); Anti-Chromatin <0.2 AI (0.0-0.9); Anti-Jo <0.2 AI (0.0-0.9); Anti-Scleroderma-70 AB <0.2 AI (0.0-0.9); RNP Ab 0.8 AI (0.0-0.9); SJOGREN'S Anti-SS-A test < 0.2 AI (0.0-0.9); SJOGREN'S Anti-SS-B test < 0.2 AI (0.0-0.9); Smith Ab <0.2 AI (0.0-0.9)
[2021-06-18 14:24] LABS: Pathologist Review Reviewed
[2021-06-18 14:25] LABS: Anti-Mitochondrial AB <20.0 Units (0.0-20.0); Anti-dsDNA Ab <1 IU/mL (0-9)
[2021-06-19 08:10] LABS: Angiotensin Convert Enzyme 45 U/L (14-82); Ceruloplasmin 27.9 mg/dL (19.0-39.0); Cytoplasmic Ab (C-ANCA) <1:20 titer (Neg:<1:20)
[2021-06-19 18:52] LABS: AFP, Tumor Marker 1.6 ng/mL (0.0-8.3); Anti-Smooth Muscle ABS 13 Units (0-19); Copper, Serum or Plasma 118 ug/dL (80-158); Haptoglobin 162 mg/dL (37-355); Perinuclear Ab (P-ANCA) <1:20 titer (Neg:<1:20)
== END 2021-06-16 23:59 | disposition home or self-care (01) ==
LOC: LAB 09:43
PROVIDERS: PCP Internal Medicine; Referring Provider Nurse Practitioner Adult Health; Visit Provider Nurse Practitioner Adult Health
DX: K74.60 Unspecified cirrhosis of liver (principal); K92.2 Gastrointestinal hemorrhage, unspecified; D64.9 Anemia, unspecified
CPT/HCPCS: 36415; 80053; 82105; 82140; 82164; 82248; 82390; 82525; 82728; 83010; 83516; 83615; 85025; 85610; 85652; 85730; 86140; 86225; 86235; 86256

== ENCOUNTER 2021-07-09 09:15 | Outpatient (CLI) | payer MEDICAID, SELFPAY ==
[2021-07-09 09:43] LABS: Absolute Lymphocyte Count 0.47 X10^3/uL (0.83-4.51); Absolute Neutrophil Count 1.1 X10^3/uL (2.0-7.7); Eosinophil# 0.05 X10^3/uL; Eosinophils% 2.7 % (0-5); Hematocrit 25.9 % (37-47); Lymphocyte # 0.47 X10^3/ul (0.83-4.51); Lymphocyte % 25.3 % (19-41); Mean Corp Hgb Conc 30.9 g/dL (32-36); Mean Corpuscular Hgb 29.1 pg (27.0-32.0); Mean Corpuscular Volume 94.2 fL (81-99); Monocyte% 10.8 % (0-10); NRBC Flagged by Analyzer 0 % (0-5); Neutrophil # 1.13 X10^3/uL (2.7-7.7); Neutrophil % 60.7 % (47-70); POSITIVE COUNT YES; POSITIVE DIFFERENTIAL YES; POSITIVE MORPHOLOGY YES; RBC Distribution Width CV 21.5 % (11.6-14.6); RBC Distribution Width SD 74.4 fl (35.1-43.9); Red Blood Count 2.75 M/mm3 (4.2-5.4); White Blood Count 1.9 K/mm3 (4.4-11.0)
[2021-07-09 09:54] LABS: International Normalized Ratio 1.4; Prothrombin Time (Protime)PT. 16.8 SECONDS (11.7-14.9)
[2021-07-09 09:55] LABS: Differential Indicated SCAN CRITERIA MET
[2021-07-09 10:01] LABS: Platelet Count 37 K/mm3 (150-450)
[2021-07-09 10:10] LABS: AST(SGOT) 45 U/L (15-37); Alanine Aminotransfer ALT/SGPT 27 U/L (13-56); Alkaline Phosphatase 71 U/L (45-117); Anion Gap 7 (5-15); BUN 14 mg/dL (7-18); BUN/Creat Ratio 22.9 RATIO (10-20); Bilirubin, Direct 0.63 mg/dL (0.00-0.30); Chloride 106 mmol/L (98-107); Creatinine, Serum 0.61 mg/dL (0.55-1.02); EST Glomerular Filtration Rate 105 mL/min (>60); Est Glom Filt Rate - Afr Amer 127 mL/min (>60); Glucose 105 mg/dL (74-106); Potassium 3.7 mmol/L (3.5-5.1); Sodium Level 140 mmol/L (136-145)
[2021-07-09 10:13] LABS: Anisocytosis 1+; Hypochromasia 1+; Platelet Estimate MKD DEC (ADEQ)
[2021-07-09 10:43] LABS: HIV - WCH Non-Reactive (Nonreactive); Hemoglobin A1c < 3.8 % (3.8-5.6)
[2021-07-10 12:09] LABS: HEPATITIS B SURFACE AG Negative (Negative); Hepatitis A IgM Antibody Negative (Negative); Hepatitis B Core AB IgM Negative (Negative)
[2021-07-10 14:07] LABS: Pathologist Review Reviewed
[2021-07-10 14:50] LABS: Hep C Antibodies 0.1 s/co ratio (0.0-0.9)
== END 2021-07-09 23:59 | disposition home or self-care (01) ==
LOC: LAB 09:17
PROVIDERS: PCP Internal Medicine; Referring Provider Nurse Practitioner Adult Health; Visit Provider Nurse Practitioner Adult Health
DX: K74.60 Unspecified cirrhosis of liver (principal); K92.2 Gastrointestinal hemorrhage, unspecified; D64.9 Anemia, unspecified
CPT/HCPCS: 36415; 80053; 80074; 82248; 83036; 85025; 85610; 86703

== ENCOUNTER 2021-08-19 10:15 | Inpatient (IN) | payer MEDICAID, SELFPAY ==
[2021-08-19] VITALS (23 sets, daily range): BP systolic 102–148; BP diastolic 36–62; PULSE 80–97; RESP 16–20; TEMP 36.1–36.7; O2SAT 95–100; BMI 38.4; BMI 36.3
--- NOTE | 2021-08-19 10:41 | EKG12_ITS ---
Test Reason : ABNL LABS Blood Pressure : / mmHG Vent. Rate : 089 BPM Atrial Rate : 089 BPM P-R Int : 108 ms QRS Dur : 084 ms QT Int : 392 ms P-R-T Axes : 014 017 -11 degrees QTc Int : 476 ms Sinus rhythm with short SC with Premature atrial complexes Nonspecific ST and T wave abnormality Abnormal ECG Confirmed by NEMO GARCIA, JADEN ([id number]), editor & co founder NAMAN MARCANO ([id number]) on 08/20/2021 9:48:18 AM Referred By: NANDO Confirmed By:JADEN CHESTER MD
--- NOTE | 2021-08-19 10:41 | EX.ED.DYSGE1 ---
HPI History of Present Illness Chief Complaint: Abn Labs Narrative Narrative: Patient sent in for hemoglobin of 4.7 and need for blood transfusion. Her last blood transfusion was in May. Afterwards, she measured 8 and has been trending down ever since. She denies any GI bleeding. She has a history of cirrhosis. She has a history of mild intermittent confusion that is no different than usual, she does take lactulose but she is inconsistent with taking it as prescribed according to the sister. She denies bleeding from anywhere else. She has been feeling weak, tired, dyspnea with exertion and for the past several weeks or so. She recently moved, was doing some activity there and that made her feel more tired. She denies any periods of chest discomfort. She denies any focal weakness or numbness anywhere. Her sister states she maybe looks a little more jaundiced than usual. She has edema in her legs that she thinks is fairly consistent with her chronic state or may be a little worse. She denies having to have paracenteses or any new swelling in her abdomen lately. She has chronically intermittent abdominal pain lower in her abdomen since she had a hernia mesh placed there it is not bothering her today, she denies any vomiting. She does have a history of esophageal varices and has had no bleeding or issues with those as of lately. [facility] Medical History Anemia Anxiety Asthma Cirrhosis Decompensation of cirrhosis of liver Depression Diabetes Former smoker GERD (gastroesophageal reflux disease) GI bleed Seizures Severe anemia Stroke/cerebrovascular accident Home Medications albuterol sulfate 2.5 mg INHALATION Q4H PRN PRN 08/19/21 [History Last Taken Unknown] albuterol sulfate [ProAir HFA] 2 puff INHALATION Q4H PRN PRN 08/19/21 [History Last Taken Unknown] carvedilol 6.25 mg PO BID 08/19/21 [History Last Taken 08/18/21 21:00] cholecalciferol (vitamin D3) 50 mcg PO DAILY 08/19/21 [History Last Taken 08/18/21 09:00] furosemide 20 mg PO DAILY 08/19/21 [History Last Taken 08/18/21 09:00] gabapentin 400 mg PO DAILY 08/19/21 [History Last Taken 08/18/21 09:00] lactulose 15 ml PO TID 08/19/21 [History Last Taken 08/18/21 21:00] loratadine 10 mg PO DAILY PRN PRN 08/19/21 [History Last Taken Unknown] metformin 500 mg PO BREAKFAST 08/19/21 [History Last Taken 08/18/21 09:00] montelukast 10 mg PO DAILY 08/19/21 [History Last Taken 08/18/21 09:00] nystatin [Nyamyc] 1 applic TOPICAL 4X/DAY PRN PRN 08/19/21 [History Last Taken 08/18/21 21:00] omeprazole 40 mg PO DAILY 08/19/21 [History Last Taken 08/18/21 09:00] sertraline 200 mg PO QHS 08/19/21 [History Last Taken 08/18/21 21:00] simvastatin 40 mg PO QHS 08/19/21 [History Last Taken 08/18/21 21:00] spironolactone 150 mg PO DAILY 08/19/21 [History Last Taken 08/18/21 21:00] Allergy/AdvReac Type Severity Reaction Status Date / Time No Known Allergies Allergy Verified 08/19/21 10:18 Social History Smoking Status: Former smoker ROS ROS ED Constitutional Constitutional ED: Denies chills or fever(s) Eyes Eyes: Reports other Details: Tunnel vision at times for the past 30 years ; Denies change in vision, diplopia or loss of vision ENT ENT ED: Denies rhinorrhea or sore throat Cardiovascular Cardiovascular: Reports pedal edema; Denies chest pain or palpitations Respiratory/Chest Respiratory/Chest: Reports dyspnea on exertion; Denies cough Gastrointestinal Gastrointestinal: Reports as per HPI; Denies abdominal pain, diarrhea, melena, nausea, rectal bleeding or vomiting Genitourinary Genitourinary ED: Denies dysuria or hematuria Musculoskeletal Musculoskeletal: Denies back pain or neck pain Integumentary Denies abscess or rash Neurologic Neurologic: Reports as per HPI; Denies headache(s), paresthesias or weakness Psychiatric Psychiatric: Denies anxiety or suicidal thoughts EXAM Physical Exam Const Vital Signs: 08/19/21 10:16 08/19/21 10:43 08/19/21 11:00 Temperature 98 F 98 F Temperature Source Temporal Temporal Pulse Rate 97 90 87 Respiratory Rate 20 H 19 H 18 Respiratory Effort Normal Non-Labored Respiratory Pattern Normal Blood Pressure 148/45 H 130/52 H 139/57 H Blood Pressure Mean 79 78 84 Pulse Ox 95 100 100 Oxygen Delivery Method Room Air Nasal Cannula Nasal Cannula Oxygen Flow Rate (L/min) 2 2 08/19/21 11:47 Temperature 98 F Temperature Source Temporal Pulse Rate 88 Respiratory Rate 19 H Respiratory Effort Respiratory Pattern Blood Pressure 125/36 H Blood Pressure Mean 65 Pulse Ox 100 Oxygen Delivery Method Nasal Cannula Oxygen Flow Rate (L/min) 2 Positive well nourished, well developed and obese General Appearance ED: well developed and NAD Nutritional Appearance: obese HEENT Reports moist mucous membranes normocephalic and atraumatic Eyes PERRL and EOMs intact bilaterally Eyes Narrative: Disconjugate gaze, baseline per family Neck full ROM and supple Resp normal respiratory effort and clear to auscultation bilaterally Effort and Inspection: able to speak in complete sentences Cardio regular rate and regular rhythm Cardio Narrative: Systolic decrescendo murmur 2/6 Peripheral Pulses: pulses 2+ throughout GI non-tender and non-distended Auscultation: normoactive bowel sounds Palpation: soft Back/Spine no CVA tenderness General Back: other FROM Extremity normal to inspection General Extremety ED: Yes edema; Negative for pulses abnormal or tenderness General Extremity: edema bilateral lower extremity Details: moderate (Symmetric with changes of chronic stasis dermatitis in both shins distally); Negative for pulses abnormal Neuro oriented x3, CN's II-XII intact bilaterally and no sensory deficits noted Sensorium / Orientation: awake and alert Meningeal Signs: no meningeal signs Motor Exam: strength 5/5 throughout Skin no rashes or lesions noted and no wounds MDM MDM MDM Narrative Medical decision making narrative: Patient very anemic had a hemoglobin of 4.4, pancytopenic like she has been in the past. Started her on a blood transfusion after we discussed the pros and cons and she consented. Will admit to the hospital. Nitrite positive on her urine, without pyuria; I was later notified by nursing that this was a different patient specimen, so we will disregard these results and await a new specimen which has not yet been collected. She does not have any symptoms or findings of SBP at this time. Hemoccult sent and pending at this time. Rectal is very benign without any tenderness or stool that look like melena, it was light brown nonbloody. Because of her anemia appears to be chronic, probably production failure related to her cirrhosis. Lab Data Attestation: I reviewed the patient's lab results. Labs: Laboratory Results - last 24 hr 08/19/21 08/19/21 08/19/21 11:15 11:20 11:20 WBC 2.1 L RBC 1.71 L Hgb 4.4 L* Hct 15.6 L MCV 91.2 MCH 25.7 L MCHC 28.2 L RDW Std Deviation 56.5 H RDW Coeff of Saundra 17.2 H Plt Count 40 L* Immature Gran % (Auto) 1.000 H Neut % (Auto) 62.2 Lymph % (Auto) 21.5 Granite % (Auto) 12.4 H Eos % (Auto) 2.9 Baso % (Auto) 0.0 Absolute Neuts (auto) 1.3 L Absolute Lymphs (auto) 0.45 L Nucleated RBC % 0 Diff Path Review May foll Platelet Estimate MKD DEC Hypochromasia 2+ Anisocytosis 1+ PT INR Sodium Potassium Chloride Carbon Dioxide Anion Gap BUN Creatinine Estim Creat Clear Calc Est GFR (MDRD) Af Amer Est GFR (MDRD) Non-Af BUN/Creatinine Ratio Glucose Calcium Total Bilirubin Direct Bilirubin AST ALT Alkaline Phosphatase Troponin I High Sens Total Protein Albumin Globulin Urine Color Cancelled Urine Clarity Cancelled Urine pH Cancelled Ur Specific [place] Cancelled U Specif Grav (Refrac) Cancelled Urine Protein Cancelled Urine Glucose (UA) Cancelled Urine Ketones Cancelled Urine Occult Blood Cancelled Urine Nitrite Cancelled Urine Bilirubin Cancelled Urine Urobilinogen Cancelled Ur Leukocyte Esterase Cancelled Urine RBC Cancelled Urine WBC Cancelled Ur Squamous Epith Cells Cancelled Ur Transition Epith Cell Cancelled Ur Renal Epithelial Cell Cancelled Calcium Oxalate Crystal Cancelled Uric Acid Crystals Cancelled Triple Phos Crystals Cancelled Other Crystals Cancelled Amorphous Sediment Cancelled Urine Bacteria Cancelled Hyaline Casts Cancelled Fine Granular Casts Cancelled Coarse Granular Casts Cancelled Waxy Casts Cancelled RBC Casts Cancelled WBC Casts Cancelled Urine Mucus Cancelled Urine Trichomonas Cancelled Urine Yeast Cancelled Blood Type O POSITIVE Antibody Screen NEGATIVE Crossmatch 08/19/21 08/19/21 08/19/21 11:20 11:20 11:20 WBC RBC Hgb Hct MCV MCH MCHC RDW Std Deviation RDW Coeff of Saundra Plt Count Immature Gran % (Auto) Neut % (Auto) Lymph % (Auto) Granite % (Auto) Eos % (Auto) Baso % (Auto) Absolute Neuts (auto) Absolute Lymphs (auto) Nucleated RBC % Diff Path Review Platelet Estimate Hypochromasia Anisocytosis PT 16.9 H INR 1.4 Sodium 139 Potassium 3.8 Chloride 107 Carbon Dioxide 25.0 Anion Gap 7 BUN 17 Creatinine 0.69 Estim Creat Clear Calc 66.00 Est GFR (MDRD) Af Amer 111 Est GFR (MDRD) Non-Af 92 BUN/Creatinine Ratio 24.7 H Glucose 170 H Calcium 8.5 Total Bilirubin 1.70 H Direct Bilirubin 0.74 H AST 22 ALT 20 Alkaline Phosphatase 92 Troponin I High Sens 4 Total Protein 5.1 L Albumin 2.5 L Globulin 2.6 Urine Color Urine Clarity Urine pH Ur Specific [place] U Specif Grav (Refrac) Urine Protein Urine Glucose (UA) Urine Ketones Urine Occult Blood Urine Nitrite Urine Bilirubin Urine Urobilinogen Ur Leukocyte Esterase Urine RBC Urine WBC Ur Squamous Epith Cells Ur Transition Epith Cell Ur Renal Epithelial Cell Calcium Oxalate Crystal Uric Acid Crystals Triple Phos Crystals Other Crystals Amorphous Sediment Urine Bacteria Hyaline Casts Fine Granular Casts Coarse Granular Casts Waxy Casts RBC Casts WBC Casts Urine Mucus Urine Trichomonas Urine Yeast Blood Type Antibody Screen Crossmatch See Detail 08/19/21 11:36 WBC RBC Hgb Hct MCV MCH MCHC RDW Std Deviation RDW Coeff of Saundra Plt Count Immature Gran % (Auto) Neut % (Auto) Lymph % (Auto) Granite % (Auto) Eos % (Auto) Baso % (Auto) Absolute Neuts (auto) Absolute Lymphs (auto) Nucleated RBC % Diff Path Review Platelet Estimate Hypochromasia Anisocytosis PT INR Sodium Potassium Chloride Carbon Dioxide Anion Gap BUN Creatinine Estim Creat Clear Calc Est GFR (MDRD) Af Amer Est GFR (MDRD) Non-Af BUN/Creatinine Ratio Glucose Calcium Total Bilirubin Direct Bilirubin AST ALT Alkaline Phosphatase Troponin I High Sens Total Protein Albumin Globulin Urine Color Urine Clarity Urine pH Ur Specific [place] U Specif Grav (Refrac) Urine Protein Urine Glucose (UA) Urine Ketones Urine Occult Blood Urine Nitrite Urine Bilirubin Urine Urobilinogen Ur Leukocyte Esterase Urine RBC Urine WBC Ur Squamous Epith Cells Ur Transition Epith Cell Ur Renal Epithelial Cell Calcium Oxalate Crystal Uric Acid Crystals Triple Phos Crystals Other Crystals Amorphous Sediment Urine Bacteria Hyaline Casts Fine Granular Casts Coarse Granular Casts Waxy Casts RBC Casts WBC Casts Urine Mucus Urine Trichomonas Urine Yeast Blood Type Antibody Screen Crossmatch See Detail Radiography Chest X-Ray - ED: 1 View, Read by ED Physician and No Acute Disease Diagnostic Testing: Clinical Impression(s) from Imaging Studies Chest X-Ray 08/19/21 11:50 IMPRESSION: Normal x-ray examination of the chest. Electronically Signed: Benjamin Torres MD at 12:06 EDT , EKG Initial EKG: Attestation: I personally reviewed and interpreted this EKG as follows: Interpretation: Sinus Rhythm, No Acute Injury Pattern and Non-Specific ST Changes Discharge Plan Dx/Rx/DC Orders Clinical Impression: Anemia, Cirrhosis, Pancytopenia Disposition Disposition: Acute Care Hospital [facility]
[2021-08-19 11:30] LABS: Absolute Lymphocyte Count 0.45 X10^3/uL (0.83-4.51); Absolute Neutrophil Count 1.3 X10^3/uL (2.0-7.7); Eosinophil# 0.06 X10^3/uL; Eosinophils% 2.9 % (0-5); Hematocrit 15.6 % (37-47); Hemoglobin 4.4 g/dL (12.0-15.0); Lymphocyte # 0.45 X10^3/ul (0.83-4.51); Lymphocyte % 21.5 % (19-41); Mean Corp Hgb Conc 28.2 g/dL (32-36); Mean Corpuscular Hgb 25.7 pg (27.0-32.0); Mean Corpuscular Volume 91.2 fL (81-99); Monocyte# 0.26 X10^3/uL; Monocyte% 12.4 % (0-10); NRBC Flagged by Analyzer 0 % (0-5); Neutrophil % 62.2 % (47-70); POSITIVE COUNT YES; POSITIVE DIFFERENTIAL YES; RBC Distribution Width CV 17.2 % (11.6-14.6); RBC Distribution Width SD 56.5 fl (35.1-43.9); Red Blood Count 1.71 M/mm3 (4.2-5.4); White Blood Count 2.1 K/mm3 (4.4-11.0)
[2021-08-19 11:32] LABS: Differential Indicated SCAN CRITERIA MET
[2021-08-19 11:36] LABS: International Normalized Ratio 1.4; Prothrombin Time (Protime)PT. 16.9 SECONDS (11.7-14.9)
[2021-08-19 11:47] LABS: AST(SGOT) 22 U/L (15-37); Alanine Aminotransfer ALT/SGPT 20 U/L (13-56); Albumin, Serum 2.5 g/dL (3.2-5.0); Alkaline Phosphatase 92 U/L (45-117); Anion Gap 7 (5-15); BUN 17 mg/dL (7-18); BUN/Creat Ratio 24.7 RATIO (10-20); Bilirubin, Direct 0.74 mg/dL (0.00-0.30); Calcium,Total 8.5 mg/dL (8.5-10.1); Chloride 107 mmol/L (98-107); Creatinine, Serum 0.69 mg/dL (0.55-1.02); EST Glomerular Filtration Rate 92 mL/min (>60); Est Glom Filt Rate - Afr Amer 111 mL/min (>60); Globulin 2.6 g/dL (2.2-4.2); Glucose 170 mg/dL (74-106); Potassium 3.8 mmol/L (3.5-5.1); Protein, Total 5.1 g/dL (6.4-8.2); Sodium Level 139 mmol/L (136-145); Troponin-I HS 4 pg/mL (3.0-54.0)
--- NOTE | 2021-08-19 11:50 | RAD_ITS ---
STUDY: X-RAY CHEST REASON FOR EXAM: Female, 61 years old. Dyspnea w/ exertion TECHNIQUE: Single AP portable view of the chest. COMPARISON: Comparison is made with prior examination dated 05/31/2021. FINDINGS: EKG electrodes are seen. The lungs are clear and expanded. There is no demonstrated pleural abnormality. Normal size heart. Normal mediastinum and sandy. Normal visualized pulmonary arteries. Normal visualized aortic arch and descending thoracic aorta. Normal visualized thoracic spine. Normal visualized ribs, clavicles, and shoulders. There is no demonstrated abnormality of the visualized soft tissue structures of the upper abdomen. RAD/Chest 1 View (Portable) IMPRESSION: Normal x-ray examination of the chest. Electronically Signed: Benjamin Torres MD at 12:06 EDT ,
[2021-08-19 11:51] LABS: Anisocytosis 1+; Hypochromasia 2+; Platelet Estimate MKD DEC (ADEQ)
--- NOTE | 2021-08-19 12:00 | HP.PCM.HOS_ITS ---
HPI - General General Date of Admission: 08/19/21 HPI Narrative AMAURY MOORE, is a 61 F with a PMH as outlined who presents via the ED on 08/19/2021 with a complaint of abnormal labs and weakness. Her hemoglobin was 4.7 on outpateint basis. She has a history of cirrhosis. She denies any bleeding from any orifice. She admits to weakness, shortness of breath with exertion and lethargy for several weeks. She denies any chest pain. she was admitted in May 2021 for similar complaints and had an EGD then which was negative for any evidence of bleeding esophageal varices. She denied any nausea, vomiting, fever or chills. REview of systems was otherwise negative. Vitals in the ED were stable. Labs showed Hb of 4.4, with Wbc of 2.1, platelets of 40 and INR of 1.4. Chemistry was significant for total bilirubin if 1.7. She is being admitted to be managed for acute on chronic anemia. [facility] Medical History Anemia Anxiety Asthma Cirrhosis Decompensation of cirrhosis of liver Depression Diabetes Former smoker GERD (gastroesophageal reflux disease) GI bleed Seizures Severe anemia Stroke/cerebrovascular accident Home Medications albuterol sulfate 2.5 mg INHALATION Q4H PRN PRN 08/19/21 [History Last Taken Unknown] albuterol sulfate [ProAir HFA] 2 puff INHALATION Q4H PRN PRN 08/19/21 [History Last Taken Unknown] carvedilol 6.25 mg PO BID 08/19/21 [History Last Taken 08/18/21 21:00] cholecalciferol (vitamin D3) 50 mcg PO DAILY 08/19/21 [History Last Taken 08/18/21 09:00] furosemide 20 mg PO DAILY 08/19/21 [History Last Taken 08/18/21 09:00] gabapentin 400 mg PO DAILY 08/19/21 [History Last Taken 08/18/21 09:00] lactulose 15 ml PO TID 08/19/21 [History Last Taken 08/18/21 21:00] loratadine 10 mg PO DAILY PRN PRN 08/19/21 [History Last Taken Unknown] metformin 500 mg PO BREAKFAST 08/19/21 [History Last Taken 08/18/21 09:00] montelukast 10 mg PO DAILY 08/19/21 [History Last Taken 08/18/21 09:00] nystatin [Nyamyc] 1 applic TOPICAL 4X/DAY PRN PRN 08/19/21 [History Last Taken 08/18/21 21:00] omeprazole 40 mg PO DAILY 08/19/21 [History Last Taken 08/18/21 09:00] sertraline 200 mg PO QHS 08/19/21 [History Last Taken 08/18/21 21:00] simvastatin 40 mg PO QHS 08/19/21 [History Last Taken 08/18/21 21:00] spironolactone 150 mg PO DAILY 08/19/21 [History Last Taken 08/18/21 21:00] Allergy/AdvReac Type Severity Reaction Status Date / Time No Known Allergies Allergy Verified 08/19/21 10:18 Social History Smoking Status: Former smoker ROS Constitutional Constitutional: Denies anorexia, fatigue, fever(s), malaise or weakness Eyes Eyes: Denies change in vision ENT HEENT: Denies dysphagia, headache(s) or sore throat Cardiovascular Cardiovascular: Reports dyspnea on exertion; Denies chest pain, edema, lig htheadedness, orthopnea, palpitations, paroxysmal nocturnal dyspnea, rapid heart rate or syncope Respiratory/Chest Respiratory/Chest: Reports shortness of breath at rest and shortness of breath with exertion; Denies cough, dyspnea or wheezing Gastrointestinal Gastrointestinal: Denies abdominal pain, constipation, diarrhea, loose stools, melena, nausea or vomiting Genitourinary Genitourinary: Denies burning urination or dysuria Musculoskeletal Musculoskeletal: Denies arthralgias or back pain Neurologic Neurologic: Denies confusion, seizures or syncope Psychiatric Psychiatric: Denies anxiety or depression Endocrine Endocrinology: Denies change in body appearance Hematologic/Lymphatic Hematologic/Lymphatic: Reports anemia Vital Signs Vital Signs Vital Signs: 08/19/21 10:16 08/19/21 10:43 08/19/21 11:47 Temperature 98 F 98 F 98 F Temperature Source Temporal Temporal Temporal Pulse Rate 97 90 88 Respiratory Rate 20 H 19 H 19 H Respiratory Effort Normal Non-Labored Respiratory Pattern Normal Blood Pressure 148/45 H 130/52 H 125/36 H Blood Pressure Mean 79 78 65 Pulse Ox 95 100 100 Oxygen Delivery Method Room Air Nasal Cannula Nasal Cannula Oxygen Flow Rate (L/min) 2 2 Weight Weight: 210 lb Body Mass Index (BMI) 38.4 Physical Exam Const alert and oriented x3 General Appearance: cooperative HEENT normocephalic, head/scalp atraumatic, hearing grossly normal bilaterally and moist oral mucous membranes Eyes PERRL, EOMs intact bilaterally and conjunctivae normal Neck no lymphadenopathy, supple and no JVD Resp normal respiratory effort, no retractions, no use of accessory muscles and clear to auscultation bilaterally Cardio regular rate, regular rhythm, S1 normal heart sound, S2 normal heart sound and no murmurs GI normal to inspection, nondistended, normoactive bowel sounds, soft to palpation, non-tender and non-distended Extremity normal to inspection, full ROM and no clubbing, cyanosis or edema Peripheral Pulses: Yes pulses 2+ throughout Skin no rashes or lesions noted Skin Narrative: very pale Neuro oriented x3, CN's II-XII intact bilaterally and moves all extremities Sensorium / Orientation: awake, alert and oriented to person Psych affect normal Results Lab / Micro Data Result Diagrams: 08/19/21 11:20 08/19/21 11:20 Labs: Laboratory Results - last 24 hr 08/19/21 11:15: Urine Color Cancelled, Urine Clarity Cancelled, Urine pH Cancelled, Ur Specific [place] Cancelled, U Specif Grav (Refrac) Cancelled, Urine Protein Cancelled, Urine Glucose (UA) Cancelled, Urine Ketones Cancelled, Urine Occult Blood Cancelled, Urine Nitrite Cancelled, Urine Bilirubin Cancelled, Urine Urobilinogen Cancelled, Ur Leukocyte Esterase Cancelled, Urine RBC Cancelled, Urine WBC Cancelled, Ur Squamous Epith Cells Cancelled, Ur Transition Epith Cell Cancelled, Ur Renal Epithelial Cell Cancelled, Calcium Oxalate Crystal Cancelled, Uric Acid Crystals Cancelled, Triple Phos Crystals Cancelled, Other Crystals Cancelled, Amorphous Sediment Cancelled, Urine Bacteria Cancelled, Hyaline Casts Cancelled, Fine Granular Casts Cancelled, Coarse Granular Casts Cancelled, Waxy Casts Cancelled, RBC Casts Cancelled, WBC Casts Cancelled, Urine Mucus Cancelled, Urine Trichomonas Cancelled, Urine Yeast Cancelled 08/19/21 11:20: WBC 2.1 L, RBC 1.71 L, Hgb 4.4 L*, Hct 15.6 L, MCV 91.2, MCH 25. 7 L, MCHC 28.2 L, RDW Std Deviation 56.5 H, RDW Coeff of Saundra 17.2 H, Immature Gran % (Auto) 1.000 H, Neut % (Auto) 62.2, Lymph % (Auto) 21.5, [place] % (Auto) 12.4 H, Eos % (Auto) 2.9, Baso % (Auto) 0.0, Absolute Neuts (auto) 1.3 L, Absolute Lymphs (auto) 0.45 L, Nucleated RBC % 0, Diff Path Review August foll, Platelet Estimate MKD DEC, Hypochromasia 2+, Anisocytosis 1+ 08/19/21 11:20: Sodium 139, Potassium 3.8, Chloride 107, Carbon Dioxide 25.0, Anion Gap 7, BUN 17, Creatinine 0.69, Estim Creat Clear Calc 66.00, Est GFR (MDRD) Af Amer 111, Est GFR (MDRD) Non-Af 92, BUN/Creatinine Ratio 24.7 H, Glucose 170 H, Calcium 8.5, Total Bilirubin 1.70 H, Direct Bilirubin 0.74 H, AST 22, ALT 20, Alkaline Phosphatase 92, Troponin I High Sens 4, Total Protein 5.1 L , Albumin 2.5 L, Globulin 2.6 08/19/21 11:20: PT 16.9 H, INR 1.4 Assessment & Plan Assessment/Plan (1) Anemia: (2) Pancytopenia: (3) Cirrhosis: PLAN: #Acute on chronic anemia * Patient had a similar episode a few months back and she had an EGD which did not show any evidence of bleeding esophageal varices * Hemoglobin was 4.7 on outpatient basis upon admission it was 4.4. * Her baseline hemoglobin 7-8 * Transfused with 2 units of packed red blood cells. * Consult gastroenterology * Stool for occult blood ordered and pending * #Pancytopenia * This is chronic. This is likely due to her liver cirrhosis * Platelet 40 and WBC is 2.1. This is all chronic. * Will monitor. 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 Also on furosemide and spironolactone. * #Type 2 diabetes mellitus: On metformin. Insulin sliding scale. Accu-Cheks ACH S. #Depression: On sertraline #Hypertension: On carvedilol. DVT prophylaxis: SCDs. No anticoagulation due to history of pancytopenia CODE STATUS: Full code * Patient counseled extensively about different types of CODE STATUS including full code, DNR CCA and DNR CCA. Patient elects to be full code. * Total [id number] time 17 minutes. Charges/Coding Visit Charges Inpatient E&M: 81437 Init Hosp L3 Procedures Hospitalists Procedures: 45871 Advncd Care Plan 30 Min
--- NOTE | 2021-08-19 12:14 | CM.ED ---
SW Note SW met with patient in the ED to update the Case Management Assessment. SW introduced self and role. Patient was alert and oriented x4. CC: Anemia, H/o WILHELM, Gastritis, GERD, Esophageal Varices. Sent by Onc-Dr Quiroz d/t low Hgb. Patient C/o little SOB and jaundice. Diagnosed with Covid on 05/16/21 at [facility] in [place]. Re-Admit: No Barriers/Issues: Patient reports she would like assistance with getting a bed as she can not get in and out of my bed. PCP: Maxwell Lares Specialists: Onc- Dr Quiroz, Hepato- Dr Mcmullen in [facility] with [facility] ( On this visit patient said that she has not had contact with Dr. Mcmullen) and ELIJAH Osborn Preferred Pharmacy: [facility] Benefit: Yes LNOK: Sister Magdalena Todd LW/HPOA: None.SW reviewed with patient the importance of having a LW/HCPOA. Patient understands that her son's are the LNOK. SW offered to assist with the advanced directives and patient said not yet. Living Arrangements: Lives with her boyfriend, Caleb Shields, in a 3rd story apartment ([facility] [address] [facility] [address] [place] [address] )in [place]. ADL?s: Ambulates with a 2WW, Ind with ADLs. Sister assists with transportation needs. Patient said that her boyfriend does the cooking and cleaning .Patient said that her boyfriend also helps her get up. Patient is able to do own personal hygiene. Transportation: Both patient and her boyfriend do not drive. Patient sister transports them. DME: 2WW, Rollator, Manual WC, [place]. HHC: None SNF: None Goal: Home at discharge. Romelia JULIAN
--- NOTE | 2021-08-19 12:46 | NURSING ---
120 KORAM ANEMIA, HGB 4.4, PANCYTOPENIA, WILHELM CIRRHOSIS
[2021-08-19 12:56] LABS: Platelet Count 40 K/mm3 (150-450)
[2021-08-19] MEDS: Lactulose 20 GM/30 ML UDC 10 GM PO ×2 (15:45→21:34)
[2021-08-19 17:10] LABS: Bedside Glucose 168 mg/dL (74-106)
[2021-08-19 18:46] LABS: Mucous, Urine 0 SEEN /hpf (<or=2+); Red Blood Cells-Urine 0 SEEN /hpf (0-5)
[2021-08-19 18:51] LABS: Color, Urine Yellow (Yellow); Glucose, Dipstick Normal (Normal); Ketone-Dipstick 5 mg/dl (Negative); Leukocyte Esterase-Dipstick 500 /ul (Negative); Nitrite-Dipstick Positive (Negative); Occult Blood-Urine Negative /ul (Negative); Protein-Dipstick Negative (Negative); Urine Bilirubin Dipstick 1 mg/dL (Negative); Urine Clarity Sl. Cloudy (Clear); Urine Urobilinogen 8 mg/dl (Normal)
[2021-08-19 18:56] LABS: Bacteria 2+ /hpf (None Seen); White Blood Cells 10-25 SEEN /hpf (0-5)
[2021-08-19 18:58] LABS: Squamous Epithelial Cells - UA 0-5 SEEN /hpf (5-10)
[2021-08-19] MEDS: 0.9% Saline Lock 10 ML Syringe IV ×2 (19:57→21:48)
--- NOTE | 2021-08-19 20:04 | PN.HOSP_ITS ---
Hospitalist Note UA notable, will request UCx from the UA already obtained and start IV rocephin given recent of admission history with general fatigue, malaise which certainly could be from only her anemia but to be cautious will add abx and may always de- escalate.
[2021-08-19 21:09] LABS: Hematocrit 20.4 % (37-47); POSITIVE COUNT YES
[2021-08-19] MEDS: Atorvastatin Calcium 20 MG Tablet PO (21:34)
[2021-08-19] MEDS: Sertraline 100 MG Tablet 200 MG PO (21:34)
[2021-08-19 22:31] LABS: Bedside Glucose 146 mg/dL (74-106)
[2021-08-20] VITALS (15 sets, daily range): BP systolic 110–126; BP diastolic 39–54; PULSE 74–88; RESP 14–18; TEMP 36.1–37; O2SAT 95–100
[2021-08-20] MEDS: Ceftriaxone 1 GM/50 ML BAG IV ×2 (00:19→21:15)
[2021-08-20] MEDS: 0.9% Saline Lock 10 ML Syringe IV ×2 (04:09→21:15)
[2021-08-20] MEDS: Lactulose 20 GM/30 ML UDC 10 GM PO ×3 (05:35→21:25)
[2021-08-20 06:04] LABS: Absolute Neutrophil Count 1.7 X10^3/uL (2.0-7.7); Eosinophil# 0.06 X10^3/uL; Eosinophils% 2.3 % (0-5); Hematocrit 23.3 % (37-47); Hemoglobin 7.3 g/dL (12.0-15.0); Lymphocyte % 19.1 % (19-41); Mean Corp Hgb Conc 31.3 g/dL (32-36); Mean Corpuscular Hgb 27.8 pg (27.0-32.0); Mean Corpuscular Volume 88.6 fL (81-99); Mean Platelet Vol. 13.2 fl (6.2-12.0); Monocyte# 0.32 X10^3/uL; Monocyte% 12.2 % (0-10); NRBC Flagged by Analyzer 0.8 % (0-5); Neutrophil # 1.72 X10^3/uL (2.7-7.7); Neutrophil % 65.6 % (47-70); POSITIVE COUNT YES; POSITIVE DIFFERENTIAL YES; Platelet Count 41 K/mm3 (150-450); RBC Distribution Width CV 16.4 % (11.6-14.6); Red Blood Count 2.63 M/mm3 (4.2-5.4); White Blood Count 2.6 K/mm3 (4.4-11.0)
[2021-08-20 06:06] LABS: Differential Indicated SCAN CRITERIA MET
[2021-08-20 06:28] LABS: Anisocytosis 1+
[2021-08-20 06:29] LABS: Ovalocyte RARE; Platelet Estimate MKD DEC (ADEQ); Tear Drop Cell RARE
[2021-08-20 06:37] LABS: ALB/GLOB Ratio 0.9 RATIO (0.9-2.4); AST(SGOT) 29 U/L (15-37); Alanine Aminotransfer ALT/SGPT 21 U/L (13-56); Albumin, Serum 2.5 g/dL (3.2-5.0); Alkaline Phosphatase 80 U/L (45-117); Anion Gap 6 (5-15); BUN 16 mg/dL (7-18); BUN/Creat Ratio 21.7 RATIO (10-20); Calcium,Total 8.1 mg/dL (8.5-10.1); Chloride 107 mmol/L (98-107); Creatinine, Serum 0.74 mg/dL (0.55-1.02); EST Glomerular Filtration Rate 85 mL/min (>60); Est Glom Filt Rate - Afr Amer 102 mL/min (>60); Estimated Creatinine Clearance 61.54 ml/min; Globulin 2.7 g/dL (2.2-4.2); Glucose 150 mg/dL (74-106); Potassium 4.2 mmol/L (3.5-5.1); Protein, Total 5.2 g/dL (6.4-8.2); Sodium Level 137 mmol/L (136-145)
[2021-08-20 07:00] LABS: Bedside Glucose 144 mg/dL (74-106)
[2021-08-20] MEDS: metFORMIN HCl 500 MG Tablet PO (07:56)
[2021-08-20] MEDS: Spironolactone 50 MG Tablet 150 MG PO (09:32)
[2021-08-20] MEDS: Pantoprazole Sodium 40 MG Tablet PO (09:33)
[2021-08-20] MEDS: Cholecalciferol (VIT D3) 25 MCG TABLET (1,000 UNITS) 50 MCG PO (09:33)
[2021-08-20] MEDS: Carvedilol 6.25 MG Tablet PO ×2 (09:33→21:25)
[2021-08-20] MEDS: Furosemide 20 MG Tablet PO (09:33)
[2021-08-20] MEDS: Montelukast 10 MG Tablet PO (09:33)
[2021-08-20] MEDS: Gabapentin 400 MG Capsule PO (09:37)
[2021-08-20 11:51] LABS: Bedside Glucose 179 mg/dL (74-106)
--- NOTE | 2021-08-20 12:00 | PN.HOSP_ITS ---
Subjective Subjective Patient seen and examined. She feels well and has no complaints. She had an uneventful night and review of systems otherwise negative. She did receive 2 units of packed red blood cells and hemoglobin is up to 7.4 today. Objective Data Objective Data Vital Signs: Vital Signs Temp Pulse Resp BP Pulse Ox 97.8 F 88 18 122/50 H 97 08/20/21 09:30 08/20/21 11:00 08/20/21 09:30 08/20/21 09:30 08/20/21 09:30 Oxygen Flow Rate (L/min) 2 Oxygen Delivery Method Room Air Weight: 198 lb 6.656 oz Body Mass Index (BMI) 36.3 Intake & Output: Intake and Output for Last 24 Hours 08/18/21 08/19/21 08/20/21 23:59 23:59 23:59 Intake Total 760 / 1060 890 / 890 Balance 760 / 1060 890 / 890 Lab / Micro Data Result Diagrams: 08/20/21 05:45 08/20/21 05:45 Labs: Laboratory Results - last 24 hr 08/19/21 11:20: Blood Type O POSITIVE, Antibody Screen NEGATIVE 08/19/21 11:20: Plt Count 40 L* 08/19/21 11:20: Crossmatch See Detail 08/19/21 11:36: Crossmatch See Detail 08/19/21 15:31: Urine Color Yellow, Urine Clarity Sl. Cloudy, Urine pH 6.0, Ur Specific [place] 1.020, Urine Protein Negative, Urine Glucose (UA) Normal, Urine Ketones 5 H, Urine Occult Blood Negative, Urine Nitrite Positive H, Urine Bilirubin 1 H, Urine Urobilinogen 8 H, Ur Leukocyte Esterase 500 H, Urine RBC 0 SEEN, Urine WBC 10-25 SEEN, Ur Squamous Epith Cells 0-5 SEEN, Urine Bacteria 2+, Urine Mucus 0 SEEN 08/19/21 17:06: POC Glucose 168 H 08/19/21 20:55: Hgb 6.0 L*, Hct 20.4 L 08/19/21 22:26: POC Glucose 146 H 08/20/21 05:45: WBC 2.6 L, RBC 2.63 L, Hgb 7.3 L, Hct 23.3 L, MCV 88.6, MCH 27.8, MCHC 31.3 L D, RDW Std Deviation 52.0 H, RDW Coeff of Saundra 16.4 H, Plt Count 41 L*, MPV 13.2 H, Immature Gran % (Auto) 0.800, Neut % (Auto) 65.6, Lymph % (Auto) 19.1, [place] % (Auto) 12.2 H, Eos % (Auto) 2.3, Baso % (Auto) 0.0, Absolute Neuts (auto) 1.7 L, Absolute Lymphs (auto) 0.50 L, Nucleated RBC % 0.8, Diff Path Review May foll, Platelet Estimate MKD DEC, Anisocytosis 1+, Tear Drop Cells RARE, Ovalocytes RARE 08/20/21 05:45: Sodium 137, Potassium 4.2, Chloride 107, Carbon Dioxide 24.0, Anion Gap 6, BUN 16, Creatinine 0.74, Estim Creat Clear Calc 61.54, Est GFR (MDRD) Af Amer 102, Est GFR (MDRD) Non-Af 85, BUN/Creatinine Ratio 21.7 H, Glucose 150 H, Calcium 8.1 L, Total Bilirubin 4.10 H, AST 29, ALT 21, Alkaline Phosphatase 80, Total Protein 5.2 L, Albumin 2.5 L, Globulin 2.7, Albumin/Globulin Ratio 0.9 08/20/21 06:46: POC Glucose 144 H 08/20/21 11:34: POC Glucose 179 H Micro: Microbiology 08/19/21 15:31 Urine, Clean Catch Urine Culture - Preliminary GNR lactose notary public 08/19/21 11:40 Stool Stool Occult Blood (ISIDRO) - Final Radiography Diagnostic Testing: Radiology Impression Chest X-Ray 08/19/21 11:50 IMPRESSION: Normal x-ray examination of the chest. Electronically Signed: Benjamin Torres MD at 12:06 EDT , Physical Exam Const alert, oriented x3 and no apparent distress General Appearance: cooperative HEENT normocephalic, head/scalp atraumatic, hearing grossly normal bilaterally and moist oral mucous membranes Head and Scalp: normocephalic Eyes PERRL, EOMs intact bilaterally and conjunctivae normal Neck no lymphadenopathy, supple and no JVD Resp normal respiratory effort, no retractions, no use of accessory muscles and clear to auscultation bilaterally Cardio regular rate, regular rhythm, S1 normal heart sound, S2 normal heart sound and no murmurs GI normal to inspection, nondistended, normoactive bowel sounds, soft to palpation, non-tender and non-distended Extremity normal to inspection, full ROM and no clubbing, cyanosis or edema Peripheral Pulses: Yes pulses 2+ throughout Skin no rashes or lesions noted Neuro oriented x3, CN's II-XII intact bilaterally and moves all extremities Sensorium / Orientation: awake, alert and oriented to person Psych affect normal Assessment & Plan Assessment/Plan (1) Anemia: (2) Pancytopenia: (3) Cirrhosis: PLAN: #Acute on chronic anemia * s/p transfusion with 2 units of PRBCs * Hb was 4.4 on admission; now 7.3 * gastroenterology consulted. Await rec's * stool for occult blood negative * Patient had a similar episode a few months back and she had an EGD which did not show any evidence of bleeding esophageal varices * Her baseline hemoglobin 7-8 * #Pancytopenia * This is chronic. This is likely due to her liver cirrhosis * Platelet 41 and WBC is 2.5. This is all chronic. * Will monitor. 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 Also on furosemide and spironolactone. * #Type 2 diabetes mellitus: On metformin. Insulin sliding scale. Accu-Cheks ACH S. #Depression: On sertraline #Hypertension: On carvedilol. DVT prophylaxis: SCDs. No anticoagulation due to history of pancytopenia CODE STATUS: Full code * Charges/Coding Visit Charges Inpatient E&M: 84566 Subs Hosp L2
--- NOTE | 2021-08-20 14:06 | CASEMGMT ---
Per therapy, pt has no further needs for d/c. This RN CM to room to inquire about pt getting in and out of bed. Pt states just got a new bed and has had trouble getting legs in and out. Pt states has started using stool which helps. Pt declines need for any further DME at this time. SStaten RN CM
[2021-08-20] MEDS: Albuterol 2.5 MG/3 ML VIAL.NEB. INHALATION (14:57)
[2021-08-20 16:30] LABS: Bedside Glucose 122 mg/dL (74-106)
--- NOTE | 2021-08-20 18:12 | CON.PCM_ITS ---
Assessment & Plan Assessment/Plan (1) Pancytopenia: PLAN: Pancytopenia secondary to cirrhosis. I would repeat her hemoglobin to see if it is holding steady. A facility study today she could be discharged to home with close follow-up. She had a capsule endoscopy which did show some abnormalities without active bleeding. I suspect she is bleeding somewhere in the small bowel as she is not having a lot of output per rectum. We may have to repeat the capsule endoscopy. I discussed getting a TIPS procedure with her and she would like to be evaluated for TIPS procedure due to recurrent GI bleeding. (2) Cirrhosis: PLAN: Nonalcoholic cirrhosis. Currently, at this time she has not suffered any encephalopathy or ascites. (3) GI bleeding: HPI Consult Data Date of Consult: 08/20/21 HPI Narrative HPI Narrative: AMAURY MOORE, is a 61 F who presented to the ED with worsening fatigue and shortness of breath. She was discovered to have a hemoglobin of 4. She recently had a capsule endoscopy done for hx GI bleed due to cirrhosis, iron deficiency anemia requiring iron transfusions. Her capsule endoscopy revealed gastropathy, duodenitis, varices in the duodenum She has WILHELM cirrhosis with esophageal varices w/ prior banding x5, severe portal hypertensive gastropathy, type I gastroesophageal varices, hepatic encephalopathy. Her iron deficiency anemia is treated by lead shop operator Dr Quiroz at [facility]. She had her final iron transfusion at [facility] last week. In 05/2021 Dr Quiroz referred her to the ED for hemoglobin 4.9. She was admitted to ICU, tranfused 2 units PRBC and [address] Saini did EGD on 05/30/21-- esophageal varices, severe portal hypertensive gastropathy, type I gastroesophageal varices, multiple 5 mm bleeding angioectasias in the stomach that he treated with argon plasma coagulation. Today she reports she is very tired, poor energy, no significant changes. Legs and feet are itchy, she attributes to swelling; has chronic LE edema L>R, wears compression hose. No generalized pruritus. BM 1-2x per day, soft stools, takes lactulose once a day usually, gets urgent diarrhea if she takes it more than that. No confusion. Difficulty sleeping last few days due to eviction from her home of 20 yrs, moving to [facility] [place]. No relief of lower abd cramping with dicyclomine, doesn't want another med to try for that. No hx of ascites, no paracentesis. [facility] Medical History Anemia Anxiety Asthma Cirrhosis Decompensation of cirrhosis of liver Depression Diabetes Former smoker GERD (gastroesophageal reflux disease) GI bleed Seizures Severe anemia Stroke/cerebrovascular accident Home Medications albuterol sulfate 2.5 mg INHALATION Q4H PRN PRN 08/19/21 [History Last Taken Unknown] albuterol sulfate [ProAir HFA] 2 puff INHALATION Q4H PRN PRN 08/19/21 [History Last Taken Unknown] carvedilol 6.25 mg PO BID 08/19/21 [History Last Taken 08/18/21 21:00] cholecalciferol (vitamin D3) 50 mcg PO DAILY 08/19/21 [History Last Taken 08/18/21 09:00] furosemide 20 mg PO DAILY 08/19/21 [History Last Taken 08/18/21 09:00] gabapentin 400 mg PO DAILY 08/19/21 [History Last Taken 08/18/21 09:00] lactulose 15 ml PO TID 08/19/21 [History Last Taken 08/18/21 21:00] loratadine 10 mg PO DAILY PRN PRN 08/19/21 [History Last Taken Unknown] metformin 500 mg PO BREAKFAST 08/19/21 [History Last Taken 08/18/21 09:00] montelukast 10 mg PO DAILY 08/19/21 [History Last Taken 08/18/21 09:00] nystatin [Nyamyc] 1 applic TOPICAL 4X/DAY PRN PRN 08/19/21 [History Last Taken 08/18/21 21:00] omeprazole 40 mg PO DAILY 08/19/21 [History Last Taken 08/18/21 09:00] sertraline 200 mg PO QHS 08/19/21 [History Last Taken 08/18/21 21:00] simvastatin 40 mg PO QHS 08/19/21 [History Last Taken 08/18/21 21:00] spironolactone 150 mg PO DAILY 08/19/21 [History Last Taken 08/18/21 21:00] Allergy/AdvReac Type Severity Reaction Status Date / Time No Known Allergies Allergy Verified 08/19/21 10:18 Social History Smoking Status: Former smoker ROS Review of Systems ROS Unobtainable: other Constitutional Constitutional: Denies fatigue, fever(s), poor appetite, weight gain or weight loss Cardiovascular Cardiovascular: Denies abdominal bloating, abdominal edema or abdominal pain Respiratory/Chest Respiratory/Chest: Denies change in mental status, change in phlegm color, chest congestion or chest tightness Gastrointestinal Gastrointestinal: Denies belching, bloating, change in bowel habits, change in stool character, chewing difficulty, coffee ground emesis, constipation, cramping, diarrhea, dyspepsia, dysphagia, early satiety, excessive flatus, fecal incontinence, heartburn, hematemesis, hematochezia, hemorrhoids, loose stools, melena, nausea, odynophagia, rectal bleeding, tenesmus, vomiting or weight changes Genitourinary Genitourinary: Denies abdominal discomfort, burning urination or itching Musculoskeletal Musculoskeletal: Reports as per HPI; Denies muscle weakness or myalgias Integumentary Integumentary: Denies jaundice Neurologic Neurologic: Denies lack of coordination or weakness Psychiatric Psychiatric: Denies confusion, depression, memory loss, mood swings, paranoia or suicidal ideation Endocrine Endocrinology: Denies systems reviewed and no addt'l complaints, except as documented Hematologic/Lymphatic Hematologic/Lymphatic: Denies anemia, easy bleeding, easy bruising or lymphadenopathy Allergic/Immunologic Allergic/Immunologic: Denies systems reviewed and no addt'l complaints, except as documented Physical Exam Const alert General Appearance: cooperative Orientation / Consciousness: oriented to person HEENT hearing grossly normal bilaterally Head and Scalp: normal to inspection Face and Sinus: face symmetric Nose: external nose normal Mouth: oral and palatal mucosa normal Eyes conjunctivae normal General Eye: normal appearance of both eyes Neck full ROM General: normal visual inspection Lymph Lymphatic: no lymphadenopathy noted Chest inspection of chest normal and palpation of chest normal Chest: symmetrical chest wall rise Resp normal respiratory effort Effort and Inspection: able to speak in complete sentences Cardio regular rate GI non-distended Percussion: normal to percussion Rectal Exam: deferred Neuro Speech: speech normal Gait (Neuro): normal gait Lab / Micro Data Result Diagrams: 08/20/21 05:45 08/20/21 05:45 Labs: Laboratory Results - last 24 hr 08/19/21 11:20: Crossmatch See Detail 08/19/21 11:36: Crossmatch See Detail 08/19/21 15:31: Urine Color Yellow, Urine Clarity Sl. Cloudy, Urine pH 6.0, Ur Specific [place] 1.020, Urine Protein Negative, Urine Glucose (UA) Normal, Urine Ketones 5 H, Urine Occult Blood Negative, Urine Nitrite Positive H, Urine Bilirubin 1 H, Urine Urobilinogen 8 H, Ur Leukocyte Esterase 500 H, Urine RBC 0 SEEN, Urine WBC 10-25 SEEN, Ur Squamous Epith Cells 0-5 SEEN, Urine Bacteria 2+, Urine Mucus 0 SEEN 08/19/21 20:55: Hgb 6.0 L*, Hct 20.4 L 08/19/21 22:26: POC Glucose 146 H 08/20/21 05:45: WBC 2.6 L, RBC 2.63 L, Hgb 7.3 L, Hct 23.3 L, MCV 88.6, MCH 27.8, MCHC 31.3 L D, RDW Std Deviation 52.0 H, RDW Coeff of Saundra 16.4 H, Plt Count 41 L*, MPV 13.2 H, Immature Gran % (Auto) 0.800, Neut % (Auto) 65.6, Lymph % (Auto) 19.1, [place] % (Auto) 12.2 H, Eos % (Auto) 2.3, Baso % (Auto) 0.0, Absolute Neuts (auto) 1.7 L, Absolute Lymphs (auto) 0.50 L, Nucleated RBC % 0.8, Diff Path Review August, Platelet Estimate MKD DEC, Anisocytosis 1+, Tear Drop Cells RARE, Ovalocytes RARE 08/20/21 05:45: Sodium 137, Potassium 4.2, Chloride 107, Carbon Dioxide 24.0, Anion Gap 6, BUN 16, Creatinine 0.74, Estim Creat Clear Calc 61.54, Est GFR (MDRD) Af Amer 102, Est GFR (MDRD) Non-Af 85, BUN/Creatinine Ratio 21.7 H, Glucose 150 H, Calcium 8.1 L, Total Bilirubin 4.10 H, AST 29, ALT 21, Alkaline Phosphatase 80, Total Protein 5.2 L, Albumin 2.5 L, Globulin 2.7, Albumin/Globulin Ratio 0.9 08/20/21 06:46: POC Glucose 144 H 08/20/21 11:34: POC Glucose 179 H 08/20/21 16:18: POC Glucose 122 H Micro: Microbiology 08/19/21 15:31 Urine, Clean Catch Urine Culture - Preliminary GNR lactose community educator Charges/Coding Visit Charges Inpatient E&M: 27547 Subs Hosp L2
[2021-08-20 18:44] LABS: Hematocrit 25.6 % (37-47); Hemoglobin 7.7 g/dL (12.0-15.0); POSITIVE COUNT YES
[2021-08-20] MEDS: Atorvastatin Calcium 20 MG Tablet PO (21:25)
[2021-08-20] MEDS: Sertraline 100 MG Tablet 200 MG PO (21:25)
[2021-08-20 21:30] LABS: Bedside Glucose 143 mg/dL (74-106)
[2021-08-21] VITALS (17 sets, daily range): BP systolic 114–134; BP diastolic 45–56; PULSE 71–81; RESP 16–22; TEMP 36.7–37.1; O2SAT 95–97
[2021-08-21 05:25] LABS: Absolute Lymphocyte Count 0.51 X10^3/uL (0.83-4.51); Absolute Neutrophil Count 1.5 X10^3/uL (2.0-7.7); Eosinophil# 0.08 X10^3/uL; Eosinophils% 3.4 % (0-5); Hematocrit 23.4 % (37-47); Hemoglobin 7.1 g/dL (12.0-15.0); Lymphocyte # 0.51 X10^3/ul (0.83-4.51); Lymphocyte % 21.5 % (19-41); Mean Corp Hgb Conc 30.3 g/dL (32-36); Mean Corpuscular Hgb 27.3 pg (27.0-32.0); Monocyte# 0.28 X10^3/uL; Monocyte% 11.8 % (0-10); NRBC Flagged by Analyzer 0 % (0-5); Neutrophil # 1.47 X10^3/uL (2.7-7.7); POSITIVE COUNT YES; POSITIVE DIFFERENTIAL YES; Platelet Count 40 K/mm3 (150-450); RBC Distribution Width CV 16.9 % (11.6-14.6); RBC Distribution Width SD 53.9 fl (35.1-43.9); White Blood Count 2.4 K/mm3 (4.4-11.0)
[2021-08-21 05:28] LABS: Differential Indicated SCAN CRITERIA MET
[2021-08-21 05:42] LABS: Anisocytosis 1+; Platelet Estimate MKD DEC (ADEQ)
[2021-08-21 05:49] LABS: AST(SGOT) 27 U/L (15-37); Alanine Aminotransfer ALT/SGPT 23 U/L (13-56); Albumin, Serum 2.5 g/dL (3.2-5.0); Alkaline Phosphatase 80 U/L (45-117); Anion Gap 5 (5-15); BUN 15 mg/dL (7-18); BUN/Creat Ratio 22.6 RATIO (10-20); Calcium,Total 8.2 mg/dL (8.5-10.1); Chloride 107 mmol/L (98-107); Creatinine, Serum 0.66 mg/dL (0.55-1.02); EST Glomerular Filtration Rate 96 mL/min (>60); Est Glom Filt Rate - Afr Amer 116 mL/min (>60); Globulin 2.5 g/dL (2.2-4.2); Glucose 132 mg/dL (74-106); Potassium 4.1 mmol/L (3.5-5.1); Sodium Level 138 mmol/L (136-145)
[2021-08-21] MEDS: Lactulose 20 GM/30 ML UDC 10 GM PO ×3 (06:13→21:57)
[2021-08-21 06:20] LABS: Bedside Glucose 124 mg/dL (74-106)
[2021-08-21] MEDS: metFORMIN HCl 500 MG Tablet PO (08:18)
[2021-08-21] MEDS: Montelukast 10 MG Tablet PO (09:15)
[2021-08-21] MEDS: Gabapentin 400 MG Capsule PO (09:15)
[2021-08-21] MEDS: Pantoprazole Sodium 40 MG Tablet PO (09:15)
[2021-08-21] MEDS: Carvedilol 6.25 MG Tablet PO ×2 (09:15→21:57)
[2021-08-21] MEDS: Cholecalciferol (VIT D3) 25 MCG TABLET (1,000 UNITS) 50 MCG PO (09:16)
[2021-08-21] MEDS: Spironolactone 50 MG Tablet 150 MG PO (09:16)
[2021-08-21] MEDS: Furosemide 20 MG Tablet PO (09:18)
[2021-08-21 10:17] LABS: Pathologist Review Reviewed
[2021-08-21 10:17] LABS: Pathologist Review Reviewed
[2021-08-21 11:25] LABS: Bedside Glucose 152 mg/dL (74-106)
[2021-08-21 12:44] LABS: Pathologist Review Reviewed
[2021-08-21 16:11] LABS: Bedside Glucose 152 mg/dL (74-106)
--- NOTE | 2021-08-21 17:44 | PCM.PROGNOTE ---
Subjective Subjective Patient is doing well. She denies abdominal pain. She has been tolerating a diet. She has not seen any signs of GI blood loss today. Objective Data Objective Data Vital Signs: Vital Signs Temp Pulse Resp BP Pulse Ox 98.6 F 73 18 119/45 L 96 08/21/21 15:10 08/21/21 15:10 08/21/21 15:10 08/21/21 15:10 08/21/21 16:16 Oxygen Flow Rate (L/min) 2 Oxygen Delivery Method Room Air Weight: 198 lb 6.656 oz Body Mass Index (BMI) 36.3 Intake & Output: Intake and Output for Last 24 Hours 08/19/21 08/20/21 08/21/21 23:59 23:59 23:59 Intake Total 760 / 1060 1320 / 1320 360 / 360 Balance 760 / 1060 1320 / 1320 360 / 360 Lab / Micro Data Result Diagrams: 08/21/21 05:11 08/21/21 05:11 Labs: Laboratory Results - last 24 hr 08/19/21 11:20: Diff Path Review Reviewed 08/19/21 20:55: Hgb 6.0 L* 08/20/21 05:45: Diff Path Review Reviewed 08/20/21 18:18: Hgb 7.7 L, Hct 25.6 L 08/20/21 21:15: POC Glucose 143 H 08/21/21 05:11: WBC 2.4 L, RBC 2.60 L, Hgb 7.1 L, Hct 23.4 L, MCV 90.0, MCH 27.3, MCHC 30.3 L, RDW Std Deviation 53.9 H, RDW Coeff of Saundra 16.9 H, Plt Count 40 L*, Immature Gran % (Auto) 1.300 H, Neut % (Auto) 62.0, Lymph % (Auto) 21.5, [place] % (Auto) 11.8 H, Eos % (Auto) 3.4, Baso % (Auto) 0.0, Absolute Neuts (auto) 1.5 L, Absolute Lymphs (auto) 0.51 L, Nucleated RBC % 0, Diff Path Review Reviewed, Platelet Estimate MKD DEC, Anisocytosis 1+ 08/21/21 05:11: Sodium 138, Potassium 4.1, Chloride 107, Carbon Dioxide 26.0, Anion Gap 5, BUN 15, Creatinine 0.66, Estim Creat Clear Calc 69.00, Est GFR (MDRD) Af Amer 116, Est GFR (MDRD) Non-Af 96, BUN/Creatinine Ratio 22.6 H, Glucose 132 H, Calcium 8.2 L, Total Bilirubin 1.70 H, AST 27, ALT 23, Alkaline Phosphatase 80, Total Protein 5.0 L, Albumin 2.5 L, Globulin 2.5, Albumin/Globulin Ratio 1.0 08/21/21 06:16: POC Glucose 124 H 08/21/21 11:22: POC Glucose 152 H 08/21/21 16:06: POC Glucose 152 H Micro: Microbiology 08/19/21 15:31 Urine, Clean Catch Urine Culture - Final Klebsiella pneumoniae sp pneum 08/19/21 11:40 Stool Stool Occult Blood (ISIDRO) - Final Physical Exam Const alert General Appearance: cooperative Orientation / Consciousness: oriented to person HEENT hearing grossly normal bilaterally Head and Scalp: normal to inspection Face and Sinus: face symmetric Nose: external nose normal Mouth: oral and palatal mucosa normal Eyes conjunctivae normal General Eye: normal appearance of both eyes Neck full ROM General: normal visual inspection Lymph Lymphatic: no lymphadenopathy noted Chest inspection of chest normal and palpation of chest normal Chest: symmetrical chest wall rise Resp normal respiratory effort Effort and Inspection: able to speak in complete sentences Cardio regular rate GI non-distended Percussion: normal to percussion Rectal Exam: deferred Neuro Speech: speech normal Gait (Neuro): normal gait Assessment & Plan Assessment/Plan (1) Cirrhosis: PLAN: Patient has a very low meld. Her current meld is an 8 with a child Mccoy score of C. She is not have any signs of ascites. She is not having any signs of encephalopathy at this time. She is on a beta-samara for varices. She is also on lactulose to prevent encephalopathy as spironolactone for prevention of ascites. (2) Pancytopenia: PLAN: Pancytopenia secondary to cirrhosis. She is not a TIPS candidate or a transplant candidate at this time due to her very low meld. 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 He recommends that we give her blood transfusion of 2 units of packed red blood cells and have her follow-up with them as an outpatient. The head of IR said that he would call her daughter to schedule her to come up to have radiofrequency ablation of AVMs in her small bowel. Charges/Coding Visit Charges Inpatient E&M: 56642 Subs Hosp L3
[2021-08-21] MEDS: Albuterol 2.5 MG/3 ML VIAL.NEB. INHALATION (20:10)
[2021-08-21] MEDS: Furosemide 20 MG/2 ML VIAL IV (21:53)
[2021-08-21] MEDS: Atorvastatin Calcium 20 MG Tablet PO (21:57)
[2021-08-21] MEDS: Sertraline 100 MG Tablet 200 MG PO (21:57)
[2021-08-21] MEDS: Ceftriaxone 1 GM/50 ML BAG IV (21:59)
[2021-08-21] MEDS: 0.9% Saline Lock 10 ML Syringe IV (22:02)
[2021-08-22 00:20] VITALS: BP 117/60; PULSE 77; RESP 20; TEMP 37; O2SAT 96
[2021-08-22 00:56] VITALS: BP 114/48; PULSE 76; RESP 20; TEMP 36.7; O2SAT 97
[2021-08-22 01:20] VITALS: BP 124/54; PULSE 77; RESP 18; TEMP 36.7; O2SAT 95
[2021-08-22 01:41] LABS: Bedside Glucose 151 mg/dL (74-106)
[2021-08-22 02:00] VITALS: BP 115/45; PULSE 73; RESP 18; TEMP 36.8; O2SAT 97
[2021-08-22] MEDS: Furosemide 20 MG/2 ML VIAL IV (02:03)
[2021-08-22 03:00] VITALS: PULSE 76
[2021-08-22] MEDS: Lactulose 20 GM/30 ML UDC 10 GM PO (06:22)
[2021-08-22 06:41] LABS: Bedside Glucose 158 mg/dL (74-106)
[2021-08-22 06:57] LABS: Absolute Lymphocyte Count 0.62 X10^3/uL (0.83-4.51); Absolute Neutrophil Count 2.2 X10^3/uL (2.0-7.7); Basophil# 0.01 X10^3/uL; Basophil% 0.3 % (0-1); Eosinophil# 0.12 X10^3/uL; Eosinophils% 3.7 % (0-5); Hematocrit 28.4 % (37-47); Hemoglobin 9.1 g/dL (12.0-15.0); Lymphocyte # 0.62 X10^3/ul (0.83-4.51); Mean Corpuscular Hgb 28.4 pg (27.0-32.0); Mean Corpuscular Volume 88.8 fL (81-99); Monocyte# 0.34 X10^3/uL; Monocyte% 10.4 % (0-10); NRBC Flagged by Analyzer 0.9 % (0-5); Neutrophil # 2.15 X10^3/uL (2.7-7.7); Neutrophil % 65.7 % (47-70); POSITIVE COUNT YES; Platelet Count 41 K/mm3 (150-450); RBC Distribution Width CV 16.1 % (11.6-14.6); RBC Distribution Width SD 49.9 fl (35.1-43.9); White Blood Count 3.3 K/mm3 (4.4-11.0)
[2021-08-22 06:59] VITALS: BP 115/49; PULSE 71; RESP 18; TEMP 36.8; O2SAT 95
[2021-08-22 07:00] LABS: Differential Indicated SCAN CRITERIA MET
[2021-08-22 07:23] LABS: AST(SGOT) 27 U/L (15-37); Alanine Aminotransfer ALT/SGPT 23 U/L (13-56); Albumin, Serum 2.7 g/dL (3.2-5.0); Alkaline Phosphatase 104 U/L (45-117); Anion Gap 6 (5-15); BUN 19 mg/dL (7-18); BUN/Creat Ratio 21.6 RATIO (10-20); Calcium,Total 8.5 mg/dL (8.5-10.1); Chloride 106 mmol/L (98-107); Creatinine, Serum 0.88 mg/dL (0.55-1.02); EST Glomerular Filtration Rate 69 mL/min (>60); Est Glom Filt Rate - Afr Amer 83 mL/min (>60); Estimated Creatinine Clearance 51.75 ml/min; Globulin 2.8 g/dL (2.2-4.2); Glucose 163 mg/dL (74-106); Protein, Total 5.5 g/dL (6.4-8.2); Sodium Level 139 mmol/L (136-145)
[2021-08-22 07:28] LABS: Anisocytosis 1+; Platelet Estimate MKD DEC (ADEQ)
--- NOTE | 2021-08-22 08:00 | PN_ITS ---
Subjective Subjective No signs of active bleeding overnight. No worsening of her encephalopathy overnight. Objective Data Objective Data Vital Signs: Vital Signs Temp Pulse Resp BP Pulse Ox 98.2 F 71 18 115/49 L 95 08/22/21 06:59 08/22/21 06:59 08/22/21 06:59 08/22/21 06:59 08/22/21 06:59 Oxygen Flow Rate (L/min) 2 Oxygen Delivery Method Room Air Weight: 198 lb 6.656 oz Body Mass Index (BMI) 36.3 Intake & Output: Intake and Output for Last 24 Hours 08/20/21 08/21/21 08/22/21 23:59 23:59 23:59 Intake Total 1320 / 1320 1290 / 1440 270 / 270 Output Total 1 / 151 150 / 150 Balance 1320 / 1320 1289 / 1289 120 / 120 Lab / Micro Data Result Diagrams: 08/22/21 06:45 08/22/21 06:45 Labs: Laboratory Results - last 24 hr 08/19/21 11:20: Diff Path Review Reviewed 08/19/21 11:20: Crossmatch See Detail 08/19/21 20:55: Hgb 6.0 L* 08/20/21 05:45: Diff Path Review Reviewed 08/21/21 05:11: Diff Path Review Reviewed 08/21/21 11:22: POC Glucose 152 H 08/21/21 16:06: POC Glucose 152 H 08/22/21 01:24: POC Glucose 151 H 08/22/21 06:22: POC Glucose 158 H 08/22/21 06:45: WBC 3.3 L, RBC 3.20 L, Hgb 9.1 L, Hct 28.4 L, MCV 88.8, MCH 28.4, MCHC 32.0 D, RDW Std Deviation 49.9 H, RDW Coeff of Saundra 16.1 H, Plt Count 41 L*, Immature Gran % (Auto) 0.900, Neut % (Auto) 65.7, Lymph % (Auto) 19.0, [place] % (Auto) 10.4 H, Eos % (Auto) 3.7, Baso % (Auto) 0.3, Absolute Neuts (auto) 2.2, Absolute Lymphs (auto) 0.62 L, Nucleated RBC % 0.9, Diff Path Review May foll, Platelet Estimate MKD DEC, Anisocytosis 1+ 08/22/21 06:45: Sodium 139, Potassium 4.0, Chloride 106, Carbon Dioxide 27.0, Anion Gap 6, BUN 19 H, Creatinine 0.88, Estim Creat Clear Calc 51.75, Est GFR (MDRD) Af Amer 83, Est GFR (MDRD) Non-Af 69, BUN/Creatinine Ratio 21.6 H, Glucose 163 H, Calcium 8.5, Total Bilirubin 2.30 H, AST 27, ALT 23, Alkaline Phosphatase 104, Total Protein 5.5 L, Albumin 2.7 L, Globulin 2.8, Albumin/Globulin Ratio 1.0 Micro: Microbiology 08/19/21 15:31 Urine, Clean Catch Urine Culture - Final Klebsiella pneumoniae sp pneum 08/19/21 11:40 Stool Stool Occult Blood (ISIDRO) - Final Physical Exam Const alert General Appearance: cooperative Orientation / Consciousness: oriented to person HEENT hearing grossly normal bilaterally Head and Scalp: normal to inspection Face and Sinus: face symmetric Nose: external nose normal Mouth: oral and palatal mucosa normal Eyes conjunctivae normal General Eye: normal appearance of both eyes Neck full ROM General: normal visual inspection Lymph Lymphatic: no lymphadenopathy noted Chest inspection of chest normal and palpation of chest normal Chest: symmetrical chest wall rise Resp normal respiratory effort Effort and Inspection: able to speak in complete sentences Cardio regular rate GI non-distended Percussion: normal to percussion Rectal Exam: deferred Neuro Speech: speech normal Gait (Neuro): normal gait Assessment & Plan Assessment/Plan (1) Pancytopenia: PLAN: Pancytopenia secondary to cirrhosis. She is not showing any other signs of decompensation at this time except forward GI bleeding. There is no signs of active bleeding at this time. Her white blood cell count and platelet count seem to be stable at this time. (2) Cirrhosis: PLAN: She has not shown any signs of encephalopathy at this time. She is on PPI therapy and beta-samara therapy for varices. She is also on PPI therapy for portal gastropathy. She maintains lactulose therapy and she is having 2 bowel movements per day. She does not show any signs of encephalopathy. Her current meld is only 8. She is not a candidate for transplant at this time. She is also not a candidate for TIPS procedure as per IR physician at [facility]. (3) Anemia: PLAN: She received 2 units packed red blood cells yesterday and her hemoglobin has increased from 7.1-9.1. There is no active bleeding at this time. Recommend outpatient IR procedure for treatment of AVMs in the small bowel. (4) GI bleeding: PLAN: No signs of active bleeding at this time. Recommend discharge to home with close follow-up. Charges/Coding Visit Charges Inpatient E&M: 20966 [facility] Hosp L3
[2021-08-22] MEDS: Carvedilol 6.25 MG Tablet PO (08:07)
[2021-08-22] MEDS: Pantoprazole Sodium 40 MG Tablet PO (08:07)
[2021-08-22] MEDS: Spironolactone 50 MG Tablet 150 MG PO (08:07)
[2021-08-22] MEDS: Furosemide 20 MG Tablet PO (08:08)
[2021-08-22] MEDS: Montelukast 10 MG Tablet PO (08:08)
[2021-08-22] MEDS: Cholecalciferol (VIT D3) 25 MCG TABLET (1,000 UNITS) 50 MCG PO (08:08)
[2021-08-22] MEDS: metFORMIN HCl 500 MG Tablet PO (08:08)
[2021-08-22] MEDS: Gabapentin 400 MG Capsule PO (08:13)
--- NOTE | 2021-08-22 09:59 | PCM.DC.SUM ---
Providers Date of Admission: 08/19/21 Primary Care Physician: Dr. Maxwell Lares MD Consultations 08/20/21 11:03 Consult: Gastroenterology Routine Consulting Provider: [facility] Reason for Consult: acute on chronic anemia EMERGENT Consult: No MD Notified: Yes Date Notified: 08/19/21 Time Notified: 17:41 Method of Notification: Text Reason For Visit: ACUTE ON CHRONIC ANEMIA Diagnosis Discharge Diagnosis (1) Pancytopenia: Status: Acute Code(s): D61.818 - Other pancytopenia (2) Cirrhosis: Status: Acute Code(s): K74.60 - Unspecified cirrhosis of liver (3) Anemia: Status: Acute Code(s): D64.9 - Anemia, unspecified (4) GI bleeding: Status: Acute Code(s): K92.2 - Gastrointestinal hemorrhage, unspecified (5) UTI (urinary tract infection): Status: Acute Code(s): N39.0 - Urinary tract infection, site not specified Medications at Discharge Home Medications albuterol sulfate 2.5 mg INHALATION Q4H PRN PRN 08/19/21 albuterol sulfate [ProAir HFA] 2 puff INHALATION Q4H PRN PRN 08/19/21 carvedilol 6.25 mg PO BID 08/19/21 cholecalciferol (vitamin D3) 50 mcg PO DAILY 08/19/21 furosemide 20 mg PO DAILY 08/19/21 gabapentin 400 mg PO DAILY 08/19/21 lactulose 15 ml PO TID 08/19/21 loratadine 10 mg PO DAILY PRN PRN 08/19/21 metformin 500 mg PO BREAKFAST 08/19/21 montelukast 10 mg PO DAILY 08/19/21 nystatin [Nyamyc] 1 applic TOPICAL 4X/DAY PRN PRN 08/19/21 omeprazole 40 mg PO DAILY 08/19/21 sertraline 200 mg PO QHS 08/19/21 simvastatin 40 mg PO QHS 08/19/21 spironolactone 150 mg PO DAILY 08/19/21 cefdinir 300 mg PO BID #10 cap 08/22/21 Hospital Course Operations None Procedures None Summary of Care Provided Minutes Spent on Discharge: 40 Hospital Course: AMAURY CISSELEY, is a 61 F with a PMH as outlined who presents via the ED on 08/19/2021 with a complaint of abnormal labs and weakness. Her hemoglobin was 4.7 on outpateint basis. She has a history of cirrhosis. She denies any bleeding from any orifice. She admits to weakness, shortness of breath with exertion and lethargy for several weeks. She denies any chest pain. she was admitted in May 2021 for similar complaints and had an EGD then which was negative for any evidence of bleeding esophageal varices. She denied any nausea, vomiting, fever or chills. REview of systems was otherwise negative. Vitals in the ED were stable. Labs showed Hb of 4.4, with Wbc of 2.1, platelets of 40 and INR of 1.4. Chemistry was significant for total bilirubin if 1.7. She was admitted to be managed for acute on chronic anemia. She was transfused with units of packed red blood cells. Stool for occult blood was positive. Gastroenterology was consulted. 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 Patient was able to transfuse with a total of 4 units of packed red blood cells. She remained stable and was discharged on 08/22/2021. 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 Of note, urine also showed evidence of UTI. Culture grew Klebsiella. She was started on IV ceftriaxone and was discharged home on p.o. cefdinir 300 mg twice daily for 5 days. Patient seen and examined prior to discharge. He had no active complaints and had an uneventful night. Review of systems otherwise negative. Labs and vitals reviewed. Medication reviewed and reconciled. Physical Exam Const alert, oriented x3 and no apparent distress General Appearance: cooperative, comfortable and well kempt Orientation / Consciousness: awake Exam Limitations: no limitations HEENT normocephalic, head/scalp atraumatic, hearing grossly normal bilaterally and moist oral mucous membranes Eyes PERRL, EOMs intact bilaterally and conjunctivae normal Neck no lymphadenopathy, supple and no JVD Resp normal respiratory effort, no retractions, no use of accessory muscles and clear to auscultation bilaterally Cardio regular rate, regular rhythm, S1 normal heart sound, S2 normal heart sound and no murmurs GI normal to inspection, nondistended, normoactive bowel sounds, soft to palpation, non-tender and non-distended Extremity normal to inspection, full ROM and no clubbing, cyanosis or edema Skin no rashes or lesions noted Skin Narrative: very pale Neuro oriented x3, CN's II-XII intact bilaterally and moves all extremities Sensorium / Orientation: awake, alert and oriented to person Psych affect normal Weight / BMI Weight Weight: 198 lb 6.656 oz Body Mass Index (BMI) 36.3 ABG / Lab / Microbiology Data Result Diagrams: 08/22/21 06:45 08/22/21 06:45 Laboratory: Laboratory Results - last 24 hr 08/19/21 11:20: Diff Path Review Reviewed 08/19/21 11:20: Crossmatch See Detail 08/19/21 20:55: Hgb 6.0 L* 08/20/21 05:45: Diff Path Review Reviewed 08/21/21 05:11: Diff Path Review Reviewed 08/21/21 11:22: POC Glucose 152 H 08/21/21 16:06: POC Glucose 152 H 08/22/21 01:24: POC Glucose 151 H 08/22/21 06:22: POC Glucose 158 H 08/22/21 06:45: WBC 3.3 L, RBC 3.20 L, Hgb 9.1 L, Hct 28.4 L, MCV 88.8, MCH 28.4, MCHC 32.0 D, RDW Std Deviation 49.9 H, RDW Coeff of Saundra 16.1 H, Plt Count 41 L*, Immature Gran % (Auto) 0.900, Neut % (Auto) 65.7, Lymph % (Auto) 19.0, [place] % (Auto) 10.4 H, Eos % (Auto) 3.7, Baso % (Auto) 0.3, Absolute Neuts (auto) 2.2, Absolute Lymphs (auto) 0.62 L, Nucleated RBC % 0.9, Diff Path Review May foll, Platelet Estimate MKD DEC, Anisocytosis 1+ 08/22/21 06:45: Sodium 139, Potassium 4.0, Chloride 106, Carbon Dioxide 27.0, Anion Gap 6, BUN 19 H, Creatinine 0.88, Estim Creat Clear Calc 51.75, Est GFR (MDRD) Af Amer 83, Est GFR (MDRD) Non-Af 69, BUN/Creatinine Ratio 21.6 H, Glucose 163 H, Calcium 8.5, Total Bilirubin 2.30 H, AST 27, ALT 23, Alkaline Phosphatase 104, Total Protein 5.5 L, Albumin 2.7 L, Globulin 2.8, Albumin/Globulin Ratio 1.0 Microbiology: Microbiology 08/19/21 15:31 Urine, Clean Catch Urine Culture - Final Klebsiella pneumoniae sp pneum 08/19/21 11:40 Stool Stool Occult Blood (ISIDRO) - Final D/C Instructions Discharge Diet: Low fat / Low cholesterol Discharge Activity: Return to Normal Activity Weight Bearing Status: Weight bearing as tolerated Call your doctor if you observe: Fever of 101 or Higher, Shortness of breath, Dizziness, Fainting spells, Swelling in the ankles, Chest pain, Increased palpitations (irregular heartbeat) and Calf discomfort Meaningful Use Info Meaningful Use Diagnoses (Choose all that apply): None applicable Discharge Plan Admission Admit Date/Time: 08/19/21 12:05 Primary Reason for Your Visit: acute on chronic anemia Attending Provider: Orquidea Petit Primary Care Provider: Maxwell Lares Instructions Patient Instructions: Anemia Additional Instructions / Restrictions: To follow up at [facility] with IR for ablation of AVMs in small bowel. Discharge Orders/Prescriptions Prescriptions: New cefdinir 300 mg capsule 300 mg PO BID Qty: 10 RF: 0 Continued metformin 500 mg tablet 500 mg PO BREAKFAST RF: 0 albuterol sulfate 2.5 mg /3 mL (0.083 %) solution for nebulization 2.5 mg inhalation Q4H PRN PRN (Reason: wheezing/shortness of breath) RF: 0 gabapentin 400 mg capsule 400 mg PO DAILY RF: 0 sertraline 100 mg tablet 200 mg PO QHS RF: 0 omeprazole 40 mg capsule,delayed release(DR/EC) 40 mg PO DAILY RF: 0 simvastatin 40 mg tablet 40 mg PO QHS RF: 0 carvedilol 3.125 mg tablet 6.25 mg PO BID RF: 0 montelukast 10 mg tablet 10 mg PO DAILY RF: 0 furosemide 20 mg tablet 20 mg PO DAILY RF: 0 nystatin [Nyamyc] 100,000 unit/gram powder 1 applic TOPICAL 4X/DAY PRN PRN (Reason: yeast/excoriated areas) RF: 0 albuterol sulfate [ProAir HFA] 90 mcg/actuation HFA aerosol inhaler 2 puff INHALATION Q4H PRN PRN (Reason: wheezing/shortness of beath) RF: 0 loratadine 10 mg tablet 10 mg PO DAILY PRN PRN (Reason: allergies) RF: 0 spironolactone 50 mg tablet 150 mg PO DAILY RF: 0 lactulose 10 gram/15 mL solution 15 ml PO TID RF: 0 cholecalciferol (vitamin D3) 50 mcg (2,000 unit) Tablet 50 mcg PO DAILY RF: 0 Referrals / Follow Up: Arturo Saini DO [STAFF PHYSICIAN] - Within 2 Weeks Maxwell Lares MD [Primary Care Provider] - Within 2 Weeks Disposition Disposition (needs filled in before D/C Order can be placed): Home, Self Care Charges/Coding Visit Charges Inpatient E&M: 61502 Disch Hosp
--- NOTE | 2021-08-22 11:44 | PHA.DC.MC ---
Pharmacy Service has performed discharge medication reconciliation and counseling for this patient. 1. CEFDINIR 300MG PO BID X 5 DAYS The patient's discharge medication list was reviewed for discrepancies and discrepancies were resolved. Home Medications albuterol sulfate 2.5 mg INHALATION Q4H PRN PRN 08/19/21 albuterol sulfate [ProAir HFA] 2 puff INHALATION Q4H PRN PRN 08/19/21 carvedilol 6.25 mg PO BID 08/19/21 cholecalciferol (vitamin D3) 50 mcg PO DAILY 08/19/21 furosemide 20 mg PO DAILY 08/19/21 gabapentin 400 mg PO DAILY 08/19/21 lactulose 15 ml PO TID 08/19/21 loratadine 10 mg PO DAILY PRN PRN 08/19/21 metformin 500 mg PO BREAKFAST 08/19/21 montelukast 10 mg PO DAILY 08/19/21 nystatin [Nyamyc] 1 applic TOPICAL 4X/DAY PRN PRN 08/19/21 omeprazole 40 mg PO DAILY 08/19/21 sertraline 200 mg PO QHS 08/19/21 simvastatin 40 mg PO QHS 08/19/21 spironolactone 150 mg PO DAILY 08/19/21 cefdinir 300 mg PO BID #10 cap 08/22/21 The patient was counseled on the following discharge medications and changes in medications for homegoing were reviewed. The Reason for Use, instructions for use, and potential side effects were reviewed for all new medications. The patient's questions regarding all of their medications were answered. The patient was able to verbally demonstrate an understanding of their discharge medications.
[2021-08-25 09:04] LABS: Pathologist Review Reviewed
== END 2021-08-22 12:03 | disposition home or self-care (01) | DRG 253 ==
LOC: ED 11:55 → PCU 12:30
PROVIDERS: Family Medicine; Internal Medicine Gastroenterology; Admitting Provider Student in an Organized Health Care Education/Training Program; Emergency Provider Emergency Medicine; PCP Internal Medicine; Visit Provider Student in an Organized Health Care Education/Training Program
DX: K55.21 Angiodysplasia of colon with hemorrhage (principal); D61.818 Other pancytopenia; E11.9 Type 2 diabetes mellitus without complications; B96.1 Klebsiella pneumoniae [K. pneumoniae] as the cause of diseases classified elsewhere; D50.9 Iron deficiency anemia, unspecified; F32.A Depression, unspecified; K74.60 Unspecified cirrhosis of liver; K75.81 Nonalcoholic steatohepatitis (NASH); I10 Essential (primary) hypertension; N39.0 Urinary tract infection, site not specified; K21.9 Gastro-esophageal reflux disease without esophagitis; Z79.84 Long term (current) use of oral hypoglycemic drugs; Z79.899 Other long term (current) drug therapy; Z86.73 Personal history of transient ischemic attack (TIA), and cerebral infarction without residual deficits; Z87.891 Personal history of nicotine dependence
CPT/HCPCS: 36415; 71045; 80048; 80053; 80076; 81001; 82274; 82962; 84484; 85014; 85018; 85025; 85610; 86850; 86900; 86901; 86920; 86922; 87077; 87086; 87088; 87186; 93005; 94640; 97161; 97166; 97530; 97535; 99251; 99284; P9016; A4216; G0463; J1940

== ENCOUNTER 2021-09-25 15:30 | Inpatient (IN) | payer MEDICAID, SELFPAY ==
[2021-09-25] VITALS (10 sets, daily range): BP systolic 99–115; BP diastolic 32–41; PULSE 79–85; RESP 14–22; TEMP 36–37.1; O2SAT 93–97; BMI 37.6; BMI 37.3
--- NOTE | 2021-09-25 15:45 | EKG12_ITS ---
Test Reason : Blood Pressure : / mmHG Vent. Rate : 081 BPM Atrial Rate : 081 BPM P-R Int : 108 ms QRS Dur : 084 ms QT Int : 406 ms P-R-T Axes : 002 021 021 degrees QTc Int : 471 ms Sinus rhythm with short NE Nonspecific T wave abnormality Prolonged QT Abnormal ECG Confirmed by RENAY GARCIA, MARIUSZ ([id number]), editorial intern NAMAN MARCANO ([id number]) on 09/29/2021 7:24:17 AM Referred By: Confirmed By:MARIUSZ NIÑO MD
--- NOTE | 2021-09-25 15:48 | EDS_ITS ---
HPI History of Present Illness Chief Complaint: Abn Labs Informant: patient and family Narrative Narrative: Patient present secondary to anemia with a hemoglobin of 4.7. She has a history of chronic pancytopenia with cirrhosis and GI bleeding. She went to [facility] today to get an iron transfusion her hemoglobin was reported to be 4.7. She was sent to the ER. Patient is known to Dr. Quiroz from hematology as well as Dr. Saini for GI. Prior labs available from August 22 indicate a hemoglobin of 9.1. Patient does report some intermittent blood in her stool. On review of records it appears the patient was admitted to the hospital in August with a hemoglobin of 4.4. 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 [facility] Medical History Anemia Anxiety Asthma Cirrhosis Decompensation of cirrhosis of liver Depression Diabetes Former smoker GERD (gastroesophageal reflux disease) GI bleed Pancytopenia Seizures Severe anemia Stroke/cerebrovascular accident Home Medications albuterol sulfate 2.5 mg INHALATION Q4H PRN PRN 08/19/21 [History Last Taken Unknown] albuterol sulfate [ProAir HFA] 2 puff INHALATION Q4H PRN PRN 08/19/21 [History Last Taken Unknown] carvedilol 6.25 mg PO BID 08/19/21 [History Last Taken 08/18/21 21:00] cholecalciferol (vitamin D3) 50 mcg PO DAILY 08/19/21 [History Last Taken 08/18/21 09:00] furosemide 20 mg PO DAILY 08/19/21 [History Last Taken 08/18/21 09:00] gabapentin 400 mg PO DAILY 08/19/21 [History Last Taken 08/18/21 09:00] lactulose 15 ml PO TID 08/19/21 [History Last Taken 08/18/21 21:00] loratadine 10 mg PO DAILY PRN PRN 08/19/21 [History Last Taken Unknown] metformin 500 mg PO BREAKFAST 08/19/21 [History Last Taken 08/18/21 09:00] montelukast 10 mg PO DAILY 08/19/21 [History Last Taken 08/18/21 09:00] nystatin [Nyamyc] 1 applic TOPICAL 4X/DAY PRN PRN 08/19/21 [History Last Taken 08/18/21 21:00] omeprazole 40 mg PO DAILY 08/19/21 [History Last Taken 08/18/21 09:00] sertraline 200 mg PO QHS 08/19/21 [History Last Taken 08/18/21 21:00] simvastatin 40 mg PO QHS 08/19/21 [History Last Taken 08/18/21 21:00] spironolactone 150 mg PO DAILY 08/19/21 [History Last Taken 08/18/21 21:00] cefdinir 300 mg PO BID #10 cap 08/22/21 [Rx Last Taken Unknown] Allergy/AdvReac Type Severity Reaction Status Date / Time No Known Allergies Allergy Verified 09/25/21 15:31 Social History Smoking Status: Former smoker ROS ROS ED Constitutional Constitutional ED: Denies chills or fever(s) Eyes Eyes: Denies change in vision ENT ENT ED: Denies sore throat Cardiovascular Cardiovascular: Denies chest pain Respiratory/Chest Respiratory/Chest: Denies cough or dyspnea Gastrointestinal Gastrointestinal: Reports abdominal pain and other Details: Occasional blood in stool. ; Denies diarrhea, nausea or vomiting Genitourinary Genitourinary ED: Denies dysuria Musculoskeletal Musculoskeletal: Denies back pain Integumentary Denies rash Neurologic Neurologic: Denies headache(s) or weakness Allergic/Immunologic Allergic/Immunologic ED: Denies urticaria EXAM Physical Exam Const Vital Signs: 09/25/21 15:31 09/25/21 17:15 09/25/21 17:32 Temperature 98.7 F Temperature Source Temporal Pulse Rate 83 80 81 Respiratory Rate 14 18 22 H Blood Pressure 113/32 L Blood Pressure Mean 59 Pulse Ox 97 Oxygen Delivery Method Room Air Positive well nourished and well developed General Appearance ED: well developed and pallor HEENT Reports moist mucous membranes Eyes PERRL and EOMs intact bilaterally General Eye ED: Yes pale conjunctiva Neck supple Chest Wall inspection of chest normal and palpation of chest normal Resp normal respiratory effort Resp Narrative: Mild expiratory wheezes. Cardio regular rate and regular rhythm GI non-tender Auscultation: hypoactive bowel sounds Palpation: soft Extremity normal to inspection Neuro oriented x3 Sensorium / Orientation: alert Psych mental status grossly normal Skin General Skin Exam: pallor MDM MDM MDM Narrative Medical decision making narrative: Lab work was ordered along with 3 units of packed RBCs. I spoke with Dr. Friend, her prize jacker. He did request a gram of Rocephin to be given and if her BUN is elevated above last lab draw to start an octreotide drip. Lab Data Attestation: I reviewed the patient's lab results. Labs: Laboratory Results - last 24 hr 09/25/21 09/25/21 09/25/21 17:03 17:03 17:03 WBC 1.8 L RBC 1.55 L Hgb 4.3 L* Hct 15.2 L MCV 98.1 MCH 27.7 MCHC 28.3 L RDW Std Deviation 63.3 H RDW Coeff of Saundra 17.8 H Plt Count 49 L* MPV 13.1 H Immature Gran % (Auto) 1.100 H Neut % (Auto) 62.1 Lymph % (Auto) 23.6 [place] % (Auto) 9.9 Eos % (Auto) 3.3 Baso % (Auto) 0.0 Absolute Neuts (auto) 1.1 L Absolute Lymphs (auto) 0.43 L Nucleated RBC % 1.1 PT 17.2 H INR 1.4 APTT 36.5 H Sodium 138 Potassium 4.3 Chloride 108 H Carbon Dioxide 25.0 Anion Gap 5 BUN 22 H Creatinine 0.77 Estim Creat Clear Calc 59.15 Est GFR (MDRD) Af Amer 97 Est GFR (MDRD) Non-Af 80 BUN/Creatinine Ratio 28.4 H Glucose 132 H Calcium 8.5 Crossmatch 09/25/21 17:03 WBC RBC Hgb Hct MCV MCH MCHC RDW Std Deviation RDW Coeff of Saundra Plt Count MPV Immature Gran % (Auto) Neut % (Auto) Lymph % (Auto) [place] % (Auto) Eos % (Auto) Baso % (Auto) Absolute Neuts (auto) Absolute Lymphs (auto) Nucleated RBC % PT INR APTT Sodium Potassium Chloride Carbon Dioxide Anion Gap BUN Creatinine Estim Creat Clear Calc Est GFR (MDRD) Af Amer Est GFR (MDRD) Non-Af BUN/Creatinine Ratio Glucose Calcium Crossmatch See Detail EKG Initial EKG: Attestation: I personally reviewed and interpreted this EKG as follows: Interpretation: Sinus Rhythm (Sinus at 81 with nonspecific T wave flattening throughout.) Treatment and Re-Evaluation Narrative: Patient's lab work here today confirms hemoglobin of 4.3 with hematocrit of 15.2. Platelet count is 49,000. White count is 1.8. Chemistry studies reveal a BUN of 22, therefore octreotide drip is started. Patient has been given a dose of Rocephin. 3 units of packed RBCs are being prepared. I will speak with the hospitalist Discharge Plan Triage Chief Complaint: Abn Labs ED Provider: Anita Rosado Dx/Rx/DC Orders Clinical Impression: Acute on chronic anemia Prescriptions: No Action metformin 500 mg tablet 500 mg PO BREAKFAST RF: 0 albuterol sulfate 2.5 mg /3 mL (0.083 %) solution for nebulization 2.5 mg inhalation Q4H PRN PRN (Reason: wheezing/shortness of breath) RF: 0 gabapentin 400 mg capsule 400 mg PO DAILY RF: 0 sertraline 100 mg tablet 200 mg PO QHS RF: 0 omeprazole 40 mg capsule,delayed release(DR/EC) 40 mg PO DAILY RF: 0 simvastatin 40 mg tablet 40 mg PO QHS RF: 0 carvedilol 3.125 mg tablet 6.25 mg PO BID RF: 0 montelukast 10 mg tablet 10 mg PO DAILY RF: 0 furosemide 20 mg tablet 20 mg PO DAILY RF: 0 nystatin [Nyamyc] 100,000 unit/gram powder 1 applic TOPICAL 4X/DAY PRN PRN (Reason: yeast/excoriated areas) RF: 0 albuterol sulfate [ProAir HFA] 90 mcg/actuation HFA aerosol inhaler 2 puff INHALATION Q4H PRN PRN (Reason: wheezing/shortness of beath) RF: 0 loratadine 10 mg tablet 10 mg PO DAILY PRN PRN (Reason: allergies) RF: 0 spironolactone 50 mg tablet 150 mg PO DAILY RF: 0 lactulose 10 gram/15 mL solution 15 ml PO TID RF: 0 cholecalciferol (vitamin D3) 50 mcg (2,000 unit) Tablet 50 mcg PO DAILY RF: 0 cefdinir 300 mg capsule 300 mg PO BID Qty: 10 RF: 0 Primary Care Provider: Maxwell Lares Referrals: Maxwell Lares MD [Primary Care Provider] - Disposition Disposition: Acute Care [facility]
[2021-09-25] MEDS: Ceftriaxone 1 GM/50 ML BAG IV (17:05)
[2021-09-25 17:15] LABS: Absolute Lymphocyte Count 0.43 X10^3/uL (0.83-4.51); Absolute Neutrophil Count 1.1 X10^3/uL (2.0-7.7); Eosinophil# 0.06 X10^3/uL; Eosinophils% 3.3 % (0-5); Hematocrit 15.2 % (37-47); Lymphocyte # 0.43 X10^3/ul (0.83-4.51); Lymphocyte % 23.6 % (19-41); Mean Corp Hgb Conc 28.3 g/dL (32-36); Mean Corpuscular Hgb 27.7 pg (27.0-32.0); Mean Corpuscular Volume 98.1 fL (81-99); Mean Platelet Vol. 13.1 fl (6.2-12.0); Monocyte# 0.18 X10^3/uL; Monocyte% 9.9 % (0-10); NRBC Flagged by Analyzer 1.1 % (0-5); Neutrophil # 1.13 X10^3/uL (2.7-7.7); Neutrophil % 62.1 % (47-70); POSITIVE COUNT YES; POSITIVE DIFFERENTIAL YES; RBC Distribution Width CV 17.8 % (11.6-14.6); RBC Distribution Width SD 63.3 fl (35.1-43.9); Red Blood Count 1.55 M/mm3 (4.2-5.4); White Blood Count 1.8 K/mm3 (4.4-11.0)
[2021-09-25 17:19] LABS: Hemoglobin 4.3 g/dL (12.0-15.0); Platelet Count 49 K/mm3 (150-450)
[2021-09-25 17:20] LABS: Differential Indicated SCAN CRITERIA MET
[2021-09-25 17:21] LABS: International Normalized Ratio 1.4; Prothrombin Time (Protime)PT. 17.2 SECONDS (11.7-14.9)
[2021-09-25 17:22] LABS: Partial Thromboplast Time 36.5 Seconds (24.1-36.2)
[2021-09-25 17:26] LABS: Anion Gap 5 (5-15); BUN 22 mg/dL (7-18); BUN/Creat Ratio 28.4 RATIO (10-20); Calcium,Total 8.5 mg/dL (8.5-10.1); Chloride 108 mmol/L (98-107); Creatinine, Serum 0.77 mg/dL (0.55-1.02); EST Glomerular Filtration Rate 80 mL/min (>60); Est Glom Filt Rate - Afr Amer 97 mL/min (>60); Estimated Creatinine Clearance 59.15 ml/min; Glucose 132 mg/dL (74-106); Potassium 4.3 mmol/L (3.5-5.1); Sodium Level 138 mmol/L (136-145)
[2021-09-25] MEDS: Ipratropium/Albuterol Sulfate 3 ML AMPUL.NEB INHALATION (17:30)
[2021-09-25 17:50] LABS: Differential Comment SCANNED
--- NOTE | 2021-09-25 18:43 | HP.PCM.HOS_ITS ---
HPI - General General Date of Admission: 09/25/21 Date of Service: 09/25/21 Chief Complaint: Abnormal outpatient labs HPI Narrative AMAURY MOORE, is a 61 F who presents to the emergency room at [facility] for evaluation after having outpatient labs drawn today which were abnormal, patient's hemoglobin was 4.3, white blood cell count was 1.8, platelet count was 49,000. Patient has a history of severe cirrhosis from WILHELM and was last hospitalized here in August of this year. 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 I talked with Dr. Saini (GI) today by phone who is taking care of the patient before, he states that the patient also has gastric varices disease. Under direction of Dr. Saini, the emergency room physician started an octreotide drip on the patient. Patient denies any melena or julia rectal bleeding and she denies any hematemesis. Patient will be admitted to PCU for severe blood loss anemia, she will be seen in consultation by Dr. Saini, she will be maintained on octreotide drip, she was given IV Rocephin in the emergency room and this will be continued during her hospitalization. Patient will be transfused 3 units of packed red blood cells, lab will be monitored. Patient verified that she is a full code. [facility] Medical History Anemia Anxiety Asthma Cirrhosis Decompensation of cirrhosis of liver Depression Diabetes Former smoker GERD (gastroesophageal reflux disease) GI bleed Pancytopenia Seizures Severe anemia Stroke/cerebrovascular accident Home Medications albuterol sulfate 2.5 mg INHALATION Q4H PRN PRN 08/19/21 [History Last Taken 2 Days Ago ~09/23/21] carvedilol 6.25 mg PO BID 08/19/21 [History Last Taken 09/24/21] cholecalciferol (vitamin D3) 50 mcg PO DAILY 08/19/21 [History Last Taken 09/24/21] furosemide 20 mg PO DAILY 08/19/21 [History Last Taken 09/24/21] gabapentin 400 mg PO DAILY 08/19/21 [History Last Taken 09/24/21] lactulose 15 ml PO TID 08/19/21 [History Last Taken 09/24/21] loratadine 10 mg PO DAILY 08/19/21 [History Last Taken 09/24/21] metformin 500 mg PO BREAKFAST 08/19/21 [History Last Taken 09/24/21] montelukast 10 mg PO DAILY 08/19/21 [History Last Taken 09/24/21] nystatin [Nyamyc] 1 applic TOPICAL 4X/DAY PRN PRN 08/19/21 [History Last Taken 09/25/21] omeprazole 40 mg PO DAILY 08/19/21 [History Last Taken 09/25/21] sertraline 200 mg PO QHS 08/19/21 [History Last Taken 09/24/21] simvastatin 40 mg PO QHS 08/19/21 [History Last Taken 09/24/21] spironolactone 150 mg PO DAILY 08/19/21 [History Last Taken 09/24/21] albuterol sulfate [Ventolin HFA] 2 inh INHALATION Q4H PRN 09/25/21 [History Last Taken 09/25/21] Allergy/AdvReac Type Severity Reaction Status Date / Time No Known Allergies Allergy Verified 09/25/21 15:31 Social History Smoking Status: Former smoker ROS Constitutional Constitutional: Denies anorexia, change in weight, fever(s), night sweats or weakness Eyes Eyes: Denies blurry vision, change in vision, discharge from eye(s) or eye pain Cardiovascular Cardiovascular: Denies chest pain, claudication, edema or palpitations Respiratory/Chest Respiratory/Chest: Denies cough, dyspnea, hemoptysis, shortness of breath at rest or shortness of breath with exertion Gastrointestinal Gastrointestinal: Denies abdominal pain, coffee ground emesis, constipation, diarrhea, dyspepsia, hematemesis, hematochezia, loose stools, melena, nausea or vomiting Genitourinary Genitourinary: Denies dysuria, hematuria, urinary frequency, urinary hesitancy, urinary incontinence or urinary urgency Musculoskeletal Musculoskeletal: Denies back pain, joint pain, joint stiffness, joint swelling, myalgias or neck pain Neurologic Neurologic: Denies abnormal gait, abnormal speech, dizziness, focal weakness, headache(s), loss of vision, numbness, other visual disturbances, paresthesias, syncope or tingling Psychiatric Psychiatric: Denies anxiety, cognitive impairment, depression, irritability, mood swings or suicidal ideation Endocrine Endocrinology: Denies change in body appearance, cold intolerance, excessive sweating, heat intolerance, polydipsia or polyuria Hematologic/Lymphatic Hematologic/Lymphatic: Denies none, anemia, easy bleeding, easy bruising or lymphadenopathy Allergic/Immunologic Allergic/Immunologic: Denies rhinitis, urticaria, eczemia or asthma Vital Signs Vital Signs Vital Signs: 09/25/21 15:31 09/25/21 17:15 09/25/21 17:32 Temperature 98.7 F Temperature Source Temporal Pulse Rate 83 80 81 Respiratory Rate 14 18 22 H Blood Pressure 113/32 L Blood Pressure Mean 59 Blood Pressure Source Blood Pressure Position Blood Pressure Location Pulse Ox 97 Oxygen Delivery Method Room Air 09/25/21 18:07 09/25/21 18:30 Temperature 98.4 F 97.8 F Temperature Source Oral Temporal Pulse Rate 83 83 Respiratory Rate 18 18 Blood Pressure 103/37 L 115/41 L Blood Pressure Mean 59 65 Blood Pressure Source Monitor Blood Pressure Position Semi-Fowlers Blood Pressure Location Right Arm Pulse Ox 97 96 Oxygen Delivery Method Room Air Room Air Weight Weight: 92.442 kg Body Mass Index (BMI) 37.3 Physical Exam Const alert, oriented x3 and no apparent distress Constitutional Narrative: Patient appears older than her stated age General Appearance: cooperative, well kempt and well developed Orientation / Consciousness: awake, oriented to person, oriented to place and oriented to time HEENT normocephalic, head/scalp atraumatic, hearing grossly normal bilaterally and moist oral mucous membranes Eyes PERRL, EOMs intact bilaterally and conjunctivae normal Neck nuchal rigidity, supple, no JVD, thyroid normal and no carotid bruits General: trachea midline Resp normal respiratory effort, no retractions, no use of accessory muscles and clear to auscultation bilaterally Auscultation: Negative for rales, rhonchi or wheezes Cardio regular rate, regular rhythm, S1 normal heart sound, S2 normal heart sound, no murmurs, no rub and no gallops GI normal to inspection, nondistended, normoactive bowel sounds, soft to palpation, non-tender and non-distended Extremity normal to inspection and no clubbing, cyanosis or edema Skin no rashes or lesions noted, no wounds and skin turgor normal General Skin Exam: no breakdown Neuro oriented x3, CN's II-XII intact bilaterally, no focal motor deficits and no sensory deficits noted Sensorium / Orientation: awake and alert Speech: speech normal Psych affect normal Results Lab / Micro Data Result Diagrams: 09/25/21 17:03 09/25/21 17:03 Labs: Laboratory Results - last 24 hr 09/25/21 17:03: WBC 1.8 L, RBC 1.55 L, Hgb 4.3 L*, Hct 15.2 L, MCV 98.1, MCH 27.7, MCHC 28.3 L, RDW Std Deviation 63.3 H, RDW Coeff of Saundra 17.8 H, Plt Count 49 L*, MPV 13.1 H, Immature Gran % (Auto) 1.100 H, Neut % (Auto) 62.1, Lymph % (Auto) 23.6, Hunt % (Auto) 9.9, Eos % (Auto) 3.3, Baso % (Auto) 0.0, Absolute Neuts (auto) 1.1 L, Absolute Lymphs (auto) 0.43 L, Nucleated RBC % 1.1, Differential Comment SCANNED, Diff Path Review August foll 09/25/21 17:03: PT 17.2 H, INR 1.4, APTT 36.5 H 09/25/21 17:03: Sodium 138, Potassium 4.3, Chloride 108 H, Carbon Dioxide 25.0, Anion Gap 5, BUN 22 H, Creatinine 0.77, Estim Creat Clear Calc 59.15, Est GFR (MDRD) Af Amer 97, Est GFR (MDRD) Non-Af 80, BUN/Creatinine Ratio 28.4 H, Glucose 132 H, Calcium 8.5 09/25/21 17:03: Blood Type O POSITIVE, Antibody Screen NEGATIVE, Crossmatch See Detail Assessment & Plan Assessment/Plan (1) Acute on chronic anemia: PLAN: 1. Acute on chronic anemia-etiology unclear at this point, patient will be admitted to PCU, she will receive 3 units of packed red blood cells, lab s will be monitored, she will be seen in consultation by gastroenterology for an EGD tomorrow. Patient will be maintained on an octreotide drip as well as a Protonix drip. Patient will be maintained on Rocephin. #2 chronic pancytopenia-as a result of chronic cirrhosis, labs will need to be monitored, makes prognosis, recovery, and medical care difficult #3 cirrhosis secondary to WILHELM-gastroenterology will participate in her care #4 history of small intestine AVM-patient will need follow-up at [facility] as scheduled Charges/Coding Visit Charges Inpatient E&M: 54554 Init Hosp L3
[2021-09-25] MEDS: 0.9% Saline Lock 10 ML Syringe IV ×2 (18:56→22:16)
[2021-09-25] MEDS: Atorvastatin Calcium 20 MG Tablet PO (22:18)
[2021-09-25] MEDS: Sertraline 100 MG Tablet 200 MG PO (22:18)
--- NOTE | 2021-09-25 23:00 | PCM.CONS.GEN ---
Assessment & Plan Assessment/Plan (1) Acute on chronic anemia: PLAN: Acute on chronic anemia likely secondary to previous GI blood source which is in the stomach. She has very thin friable mucosa with multiple angiodysplasias. 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 We will do an upper endoscopy to evaluate upper GI tract. (2) Cirrhosis: PLAN: Her current meld is low at 8. She is not showing any other signs of decompensation. She does not show any encephalopathy, jaundice or ascites. (3) Thrombocytopenia: PLAN: Thrombocytopenia is stable at this time. HPI Consult Data Date of Consult: 09/26/21 HPI Narrative HPI Narrative: AMAURY MOORE, is a 61 F who presents secondary to anemia with a hemoglobin of 4.7. She has a history of chronic pancytopenia with cirrhosis and GI bleeding. She went to [facility] today to get an iron transfusion her hemoglobin was reported to be 4.7. She was sent to the ER. She presented to ED on 08/19/2021 with hemoglobin 4.4 and weakness. She was admitted for acute on chronic anemia. She has cirrhosis. She was transfused with multiple units of packed red blood cells. Stool was Hemoccult positive. Dr. Saini consulted with interventional radiology at [facility] so that she could be scheduled for radiofrequency ablation of AVMs in the small bowel. Her hemoglobin at discharge was 9.1 on 08/22/2021. Since then she has had 2 iron transfusions and is scheduled for a third iron transfusion this week, Dr. Quiroz at [facility] hematology treats her. Hemoglobin was 8.0 at [facility] on 09/01/2021. She is scheduled for interventional radiology procedure at [facility] on 10-08. She remains very tired but denies shortness of breath. She has had 2 recent falls, she attributes 1 fall to not using her cane, and the other fall 2 not looking at the ground while walking. She has bruises on her left arm and left side of her trunk. She denies abdominal pain. No nausea or vomiting. She has diarrhea due to lactulose. No confusion or forgetfulness since discharge. [facility] Medical History (Updated 09/26/21 @ 16:[address] Arturo Saini, DO) Anemia Anxiety Asthma Cirrhosis Decompensation of cirrhosis of liver Depression Diabetes Former smoker GERD (gastroesophageal reflux disease) GI bleed Pancytopenia Seizures Severe anemia Stroke/cerebrovascular accident Home Medications albuterol sulfate 2.5 mg INHALATION Q4H PRN PRN 08/19/21 [History Last Taken 2 Days Ago ~09/23/21] carvedilol 6.25 mg PO BID 08/19/21 [History Last Taken 09/24/21] cholecalciferol (vitamin D3) 50 mcg PO DAILY 08/19/21 [History Last Taken 09/24/21] furosemide 20 mg PO DAILY 08/19/21 [History Last Taken 09/24/21] gabapentin 400 mg PO DAILY 08/19/21 [History Last Taken 09/24/21] lactulose 15 ml PO TID 08/19/21 [History Last Taken 09/24/21] loratadine 10 mg PO DAILY 08/19/21 [History Last Taken 09/24/21] metformin 500 mg PO BREAKFAST 08/19/21 [History Last Taken 09/24/21] montelukast 10 mg PO DAILY 08/19/21 [History Last Taken 09/24/21] nystatin [Nyamyc] 1 applic TOPICAL 4X/DAY PRN PRN 08/19/21 [History Last Taken 09/25/21] omeprazole 40 mg PO DAILY 08/19/21 [History Last Taken 09/25/21] sertraline 200 mg PO QHS 08/19/21 [History Last Taken 09/24/21] simvastatin 40 mg PO QHS 08/19/21 [History Last Taken 09/24/21] spironolactone 150 mg PO DAILY 08/19/21 [History Last Taken 09/24/21] albuterol sulfate [Ventolin HFA] 2 inh INHALATION Q4H PRN 09/25/21 [History Last Taken 09/25/21] Allergy/AdvReac Type Severity Reaction Status Date / Time No Known Allergies Allergy Verified 09/25/21 15:31 Social History Smoking Status: Former smoker ROS Review of Systems ROS Unobtainable: other Constitutional Constitutional: Denies fatigue, fever(s), poor appetite, weight gain or weight loss ENT HEENT: Denies mouth lesions Cardiovascular Cardiovascular: Denies abdominal bloating, abdominal edema or abdominal pain Respiratory/Chest Respiratory/Chest: Denies change in mental status, change in phlegm color, chest congestion or chest tightness Gastrointestinal Gastrointestinal: Denies belching, bloating, change in bowel habits, change in stool character, chewing difficulty, coffee ground emesis, constipation, cramping, diarrhea, dyspepsia, dysphagia, early satiety, excessive flatus, fecal incontinence, heartburn, hematemesis, hematochezia, hemorrhoids, loose stools, melena, nausea, odynophagia, rectal bleeding, tenesmus, vomiting or weight changes Genitourinary Genitourinary: Denies abdominal discomfort, burning urination or itching Musculoskeletal Musculoskeletal: Reports as per HPI; Denies muscle weakness or myalgias Integumentary Integumentary: Denies jaundice Neurologic Neurologic: Denies lack of coordination or weakness Psychiatric Psychiatric: Denies confusion, depression, memory loss, mood swings, paranoia or suicidal ideation Endocrine Endocrinology: Denies systems reviewed and no addt'l complaints, except as documented Hematologic/Lymphatic Hematologic/Lymphatic: Denies anemia, easy bleeding, easy bruising or lymphadenopathy Allergic/Immunologic Allergic/Immunologic: Denies systems reviewed and no addt'l complaints, except as documented Physical Exam Const alert General Appearance: cooperative Orientation / Consciousness: oriented to person HEENT hearing grossly normal bilaterally Head and Scalp: normal to inspection Face and Sinus: face symmetric Nose: external nose normal Mouth: oral and palatal mucosa normal Eyes conjunctivae normal General Eye: normal appearance of both eyes Neck full ROM General: normal visual inspection Lymph Lymphatic: no lymphadenopathy noted Chest inspection of chest normal and palpation of chest normal Chest: symmetrical chest wall rise Resp normal respiratory effort Effort and Inspection: able to speak in complete sentences Cardio regular rate GI non-distended Percussion: normal to percussion Rectal Exam: deferred Neuro Speech: speech normal Gait (Neuro): normal gait Lab / Micro Data Result Diagrams: 09/26/21 08:23 09/25/21 17:03 Labs: Laboratory Results - last 24 hr 09/25/21 17:03: WBC 1.8 L, RBC 1.55 L, Hgb 4.3 L*, Hct 15.2 L, MCV 98.1, MCH 27.7, MCHC 28.3 L, RDW Std Deviation 63.3 H, RDW Coeff of Saundra 17.8 H, Plt Count 49 L*, MPV 13.1 H, Immature Gran % (Auto) 1.100 H, Neut % (Auto) 62.1, Lymph % (Auto) 23.6, Starr % (Auto) 9.9, Eos % (Auto) 3.3, Baso % (Auto) 0.0, Absolute Neuts (auto) 1.1 L, Absolute Lymphs (auto) 0.43 L, Nucleated RBC % 1.1, Differential Comment SCANNED, Diff Path Review Reviewed 09/25/21 17:03: PT 17.2 H, INR 1.4, APTT 36.5 H 09/25/21 17:03: Sodium 138, Potassium 4.3, Chloride 108 H, Carbon Dioxide 25.0, Anion Gap 5, BUN 22 H, Creatinine 0.77, Estim Creat Clear Calc 59.15, Est GFR (MDRD) Af Amer 97, Est GFR (MDRD) Non-Af 80, BUN/Creatinine Ratio 28.4 H, Glucose 132 H, Calcium 8.5 09/25/21 17:03: Blood Type O POSITIVE, Antibody Screen NEGATIVE, Crossmatch See Detail 09/25/21 17:03: Troponin I High Sens 6 09/26/21 05:47: POC Glucose 127 H 09/26/21 08:23: WBC 2.6 L, RBC 2.43 L, Hgb 7.0 L, Hct 22.4 L, MCV 92.2 D, MCH 28.8, MCHC 31.3 L D, RDW Std Deviation 57.3 H, RDW Coeff of Saundra 17.7 H, Plt Count 50 L*, Immature Gran % (Auto) 1.200 H, Neut % (Auto) 57.1, Lymph % (Auto) 25.7, Starr % (Auto) 11.3 H, Eos % (Auto) 4.3, Baso % (Auto) 0.4, Absolute Neuts (auto) 1.5 L, Absolute Lymphs (auto) 0.66 L, Nucleated RBC % 0, Differential Comment SCANNED, Diff Path Review May foll Charges/Coding Visit Charges Inpatient E&M: 91274 Init Hosp L3
[2021-09-26] VITALS (23 sets, daily range): BP systolic 99–121; BP diastolic 32–53; PULSE 68–87; RESP 16–20; TEMP 36–36.7; O2SAT 93–98
[2021-09-26] MEDS: 0.9% Saline Lock 10 ML Syringe IV (05:41)
[2021-09-26 05:51] LABS: Bedside Glucose 127 mg/dL (74-106)
[2021-09-26 08:48] LABS: Absolute Lymphocyte Count 0.66 X10^3/uL (0.83-4.51); Absolute Neutrophil Count 1.5 X10^3/uL (2.0-7.7); Basophil# 0.01 X10^3/uL; Basophil% 0.4 % (0-1); Eosinophil# 0.11 X10^3/uL; Eosinophils% 4.3 % (0-5); Hematocrit 22.4 % (37-47); Lymphocyte # 0.66 X10^3/ul (0.83-4.51); Lymphocyte % 25.7 % (19-41); Mean Corp Hgb Conc 31.3 g/dL (32-36); Mean Corpuscular Hgb 28.8 pg (27.0-32.0); Mean Corpuscular Volume 92.2 fL (81-99); Monocyte# 0.29 X10^3/uL; Monocyte% 11.3 % (0-10); NRBC Flagged by Analyzer 0 % (0-5); Neutrophil # 1.47 X10^3/uL (2.7-7.7); Neutrophil % 57.1 % (47-70); POSITIVE COUNT YES; RBC Distribution Width CV 17.7 % (11.6-14.6); RBC Distribution Width SD 57.3 fl (35.1-43.9); Red Blood Count 2.43 M/mm3 (4.2-5.4); White Blood Count 2.6 K/mm3 (4.4-11.0)
[2021-09-26 08:52] LABS: Differential Indicated SCAN CRITERIA MET; Platelet Count 50 K/mm3 (150-450)
[2021-09-26 09:07] LABS: Differential Comment SCANNED
[2021-09-26] MEDS: Ceftriaxone 1 GM/50 ML BAG IV (09:13)
--- NOTE | 2021-09-26 10:16 | PN.HOSP_ITS ---
Subjective Subjective Follow-up for Christensen related decompensated cirrhosis with severe anemia Objective Data Objective Data Vital Signs: Vital Signs Temp Pulse Resp BP Pulse Ox 98.1 F 82 18 121/35 H 93 09/26/21 09:01 09/26/21 09:01 09/26/21 09:01 09/26/21 09:01 09/26/21 09:01 Oxygen Delivery Method Room Air Weight: 203 lb 12.8 oz Body Mass Index (BMI) 37.3 Intake & Output: Intake and Output for Last 24 Hours 09/24/21 09/25/21 09/26/21 23:59 23:59 23:59 Intake Total 450 / 450 924 / 924 Balance 450 / 450 924 / 924 Lab / Micro Data Result Diagrams: 09/26/21 08:23 09/25/21 17:03 Labs: Laboratory Results - last 24 hr 09/25/21 17:03: WBC 1.8 L, RBC 1.55 L, Hgb 4.3 L*, Hct 15.2 L, MCV 98.1, MCH 27.7, MCHC 28.3 L, RDW Std Deviation 63.3 H, RDW Coeff of Saundra 17.8 H, Plt Count 49 L*, MPV 13.1 H, Immature Gran % (Auto) 1.100 H, Neut % (Auto) 62.1, Lymph % (Auto) 23.6, [place] % (Auto) 9.9, Eos % (Auto) 3.3, Baso % (Auto) 0.0, Absolute Neuts (auto) 1.1 L, Absolute Lymphs (auto) 0.43 L, Nucleated RBC % 1.1, Differential Comment SCANNED, Diff Path Review August09/25/21 17:03: PT 17.2 H, INR 1.4, APTT 36.5 H 09/25/21 17:03: Sodium 138, Potassium 4.3, Chloride 108 H, Carbon Dioxide 25.0, Anion Gap 5, BUN 22 H, Creatinine 0.77, Estim Creat Clear Calc 59.15, Est GFR (MDRD) Af Amer 97, Est GFR (MDRD) Non-Af 80, BUN/Creatinine Ratio 28.4 H, Glu cose 132 H, Calcium 8.5 09/25/21 17:03: Blood Type O POSITIVE, Antibody Screen NEGATIVE, Crossmatch See Detail 09/26/21 05:47: POC Glucose 127 H 09/26/21 08:23: WBC 2.6 L, RBC 2.43 L, Hgb 7.0 L, Hct 22.4 L, MCV 92.2 D, MCH 28.8, MCHC 31.3 L D, RDW Std Deviation 57.3 H, RDW Coeff of Saundra 17.7 H, Plt Count 50 L*, Immature Gran % (Auto) 1.200 H, Neut % (Auto) 57.1, Lymph % (Auto) 25.7, [place] % (Auto) 11.3 H, Eos % (Auto) 4.3, Baso % (Auto) 0.4, Absolute Neuts (auto) 1.5 L, Absolute Lymphs (auto) 0.66 L, Nucleated RBC % 0, Differential Comment SCANNED, Diff Path Review August Physical Exam Narrative Patient has history of decompensated Christensen related cirrhosis, diagnosed about 3 years ago progressively worsening. She had multiple EGD and banding of esop hageal varices and clipping. She also had capsule endoscopy. History of multiple recurrent admission for anemia and complications of cirrhosis Patient had hysterectomy after that she had hernia. Her hernia was found complicated with bowel ischemia and resection of bowel by Dr. Chahal about 15 years ago patient. Physical exam General: Alert, Oriented x3, Cooperative HEENT: Atraumatic, PERRLA, EOMI, Normocephalic. Pale conjunctive Oral: No Gingival or Mucosal Lesions/ Ulcerations Neck: Supple, No JVD, Negative Carotid Bruits Lungs: Air entry diminished in bilateral lung bases. No crepitation/rhonchi Cardiovascular: Regular rate, Regular Rhythm, Normal S1, Normal S2, systolic murmur grade 4/6 over LLSB Abdomen: Bowel Sounds Present, Soft, Non Tender, mild ascites. : No renal angle tenderness. No suprapubic tenderness. Extremities: Bilateral 3+ pitting edema above knee level, Capillary Refill Less than 3 Seconds Skin: No rashes, No breakdown Musculoskeletal: No Tenderness to Palpation of Joints or Extremities Neurological: Cranial nerves II-XII grossly intact, DTR 2+/4 and Symmetrical, Neuro grossly intact Psych/Mental Status: Flat affect Assessment & Plan Assessment/Plan (1) Acute on chronic anemia: PLAN: 1. Acute on chronic anemia possible due to GI blood loss: Patient has a history of varices with banding and clipping in the past.The patient is admitted to PCU, Patient is on an octreotide drip as well as a Protonix drip. On IV ceftriaxone. Patient had 3 units of PRBC transfusion and hemoglobin went up from 4.3 g to 7 g. EGD shows grade 1 esophageal varices, RBC in the gastric antrum. 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 Multiple bleeding angiectasia in the stomach treatment with heater probe. Normal second portion of duodenum. #2 chronic pancytopenia-as a result of chronic cirrhosis, labs will need to be monitored, makes prognosis, recovery, and medical care difficult. 7.0, platelet count 50,010 WBC 2.613. ANC 1.5 thousand, ANC 0.6 thousand #3 Decompensated Christensen related cirrhosis with history of gastroesophageal varices, pancytopenia, thrombocytopenia and ascites: Patient does not have features of acute encephalopathy. On Lasix, spironolactone, Coreg, lactulose and Protonix. #4 history of small intestine AVM-patient will need follow-up at [facility] as scheduled I talked to the patient and her sister at the bedside given the clinical abdomen, natural history of cirrhosis and complications. Total time of the visit including total time spent in counseling or coordination of care, (more than 50% of the total time, spent in obtaining medical information from nurses and other ancillary care providers,explaining to the patient about labs, imaging, diagnosis and management), discussion with GI consulted, review of labs and imaging is 40 minutes. Charges/Coding Visit Charges Inpatient E&M: 67759 Subs Hosp L3
--- NOTE | 2021-09-26 10:40 | CASEMGMT ---
CHARISSA WILSON Face to Face with patient for initial transition planning/care coordination assessment. RN KATIE introduced self and role at [facility]. Patient sitting in chair, alert and oriented, sister at bedside. Patient willing to participate in assessment and is able to answer all questions appropriately. Care providers, pharmacy, and demographics verified. Patient wishes to discharge home, denies need for home health at this time. Patient states she has no further needs or concerns at this time. CM to follow for discharge planning needs that may arise. PCP: Arnaud Specialists: Friend, GI; Richie, oncologist Preferred Pharmacy: [facility] Insurance: [employer] Prescription Benefit: yes Living Will/HPOA: none LNOK: son, sister, boyfriend Living Arrangements: Patient lives with boyfriend in a 3rd floor apartment with elevator. Patient states she is independent at home. Transportation: sister DME/HHC: Patient states she has cane, walker, wheelchair, and grab bars at home. No previous HHC or SNF. Patient has done outpatient therapy previously at [facility] Disposition Plan: Patient to discharge home with family support and follow-up plans in place. Deneen MA, RN, CM
[2021-09-26] MEDS: Lactated Ringers 1,000 ML 15 ML IV (12:00)
[2021-09-26 12:24] LABS: Troponin-I HS 6 pg/mL (3.0-54.0)
[2021-09-26 12:38] LABS: Pathologist Review Reviewed
--- NOTE | 2021-09-26 14:20 | OP.EGD_ITS ---
Patient Name: Rosi Thornton Procedure Date: 09/26/2021 1:46 PM Date of : 1960 Age: 61 Procedure: Upper GI endoscopy Indications: Iron deficiency anemia Providers: Arturo Saini DO Medicines: Monitored Anesthesia Care Patient Profile: This is a 61 year old female. Refer to note in patient chart for documentation of history and physical. Patient has symptoms. She is status post EGD for treatment of bleeding within the past three months. Complications: No immediate complications. Procedure: Pre-Anesthesia Assessment: - Prior to the procedure, a History and Physical was performed, and patient medications and allergies were reviewed. The risks and benefits of the procedure and the sedation options and risks were discussed with the patient. All questions were answered and informed consent was obtained. Patient identification and proposed procedure were verified by the physician in the pre-procedure area. Mental Status Examination: alert and oriented. Airway Examination: normal oropharyngeal airway and neck mobility. Respiratory Examination: clear to auscultation. CV Examination: normal. Prophylactic Antibiotics: The patient does not require prophylactic antibiotics. Prior Anticoagulants: The patient has taken no previous anticoagulant or antiplatelet agents. After reviewing the risks and benefits, the patient was deemed in satisfactory condition to undergo the procedure. The anesthesia plan was to use moderate sedation / analgesia (conscious sedation). Immediately prior to administration of medications, the patient was re-assessed for adequacy to receive sedatives. The heart rate, respiratory rate, oxygen saturations, blood pressure, adequacy of pulmonary ventilation, and response to care were monitored throughout the procedure. The physical status of the patient was re-assessed after the procedure. After obtaining informed consent, the endoscope was passed under direct vision. Throughout the procedure, the patient's blood pressure, pulse, and oxygen saturations were monitored continuously. The Endoscope was introduced through the mouth, and advanced to the second part of duodenum. The upper GI endoscopy was accomplished without difficulty. The patient tolerated the procedure well. Scope In: 1:54:49 PM Scope Out: 2:12:24 PM Total Procedure Duration Time 0 hours 17 minutes 35 seconds Findings: Grade I varices were found in the lower third of the esophagus. They were 2 mm in largest diameter. Red blood was found in the gastric antrum. Multiple 5 mm bleeding angioectasias were found in the stomach. Coagulation for hemostasis using heater probe was unsuccessful. Viktor spray was used to cover the entire stomach and there were no signs of bleeding after the viktor spray was deployed. The second portion of the duodenum was normal. Impression: - Grade I esophageal varices. - Red blood in the gastric antrum. - Multiple bleeding angioectasias in the stomach. Treatment not successful. Treated with a heater probe. - Normal second portion of the duodenum. - No specimens collected. Recommendation: - Return patient [facility]. - NPO. - Continue present medications. Procedure Code(s): --- Professional --- 06603, Esophagogastroduodenoscopy, flexible, transoral; with control of bleeding, any method CPT copyright 2017 [employer]. All rights reserved. The codes documented in this report are preliminary and upon record retrieval specialist review may be revised to meet current compliance requirements. Arturo Saini DO 09/26/2021 2:19:37 PM This report has been signed electronically. Number of Addenda: 1 Note Initiated On: 09/26/2021 1:46 PM Addendum Number: 1 Addendum Date: 01/20/2022 6:27:08 AM MAC was used as sedation for this procedure. Arturo Saini DO 01/20/2022 6:27:15 AM This report has been signed electronically.
--- NOTE | 2021-09-26 14:21 | OP.CCLET_ITS ---
01/20/2022 Maxwell Lares [address] [place] [address] Re : Upper GI endoscopy procedure for Rosi Thornton Dear Dr. Lares This procedure was performed on Sunday, September 26, 2021. My impressions and recommendations are as follows: Impressions : - Grade I esophageal varices. - Red blood in the gastric antrum. - Multiple bleeding angioectasias in the stomach. Treatment not successful. Treated with a heater probe. - Normal second portion of the duodenum. - No specimens collected. Recommendations : - Return patient to [facility] for [facility] care. - NPO. - Continue present medications. My findings are described in the full procedure note, which is enclosed. If I can be of further assistance, please feel free to contact me at . Sincerely, Arturo Saini, 09/26/2021 2:19:37 PM This report has been signed electronically.
--- NOTE | 2021-09-26 15:28 | CHAPLAIN ---
Type of Pastoral Visit ___ Initial Visit ___ Follow-up Visit ___ On-call Visit ___ General Patient Visit ___ Spiritual Assessment ___ Family Conference ___ Bereavement ___ Rapid Response ___ Code Blue ___ Other (describe below) Pastoral Care Referral From ___ Patient ___ Family ___ Nurse ___ Physician ___ Lifts And Cranes Inspector ___ Starch Crab ___ Other (describe below) Sacrament/Intervention ___ Active listening ___ Anointing ___ Adventism ___ Bereavement ___ Communion ___ Raisa exploration ___ ___ Life review ___ Prayer ___ Reconciliation ___ Sacrament of Sick ___ Supportive presence ___ Wedding ___ Other (describe below) Pastoral Comments patient and bed were gone from the room; left a calling card
[2021-09-26] MEDS: Carvedilol 6.25 MG Tablet PO (16:01)
[2021-09-26] MEDS: Gabapentin 400 MG Capsule PO (16:01)
[2021-09-26] MEDS: Spironolactone 50 MG Tablet 150 MG PO (16:02)
[2021-09-26] MEDS: Montelukast 10 MG Tablet PO (16:02)
[2021-09-26] MEDS: Acetaminophen 325 MG Tablet 650 MG PO (16:06)
[2021-09-26 17:26] LABS: Bedside Glucose 126 mg/dL (74-106)
[2021-09-26] MEDS: Furosemide 20 MG Tablet PO (18:34)
[2021-09-26] MEDS: Atorvastatin Calcium 20 MG Tablet PO (21:28)
[2021-09-26] MEDS: Sertraline 100 MG Tablet 200 MG PO (21:28)
[2021-09-26 21:29] LABS: Hematocrit 23.2 % (37-47)
[2021-09-27] VITALS (14 sets, daily range): BP systolic 92–116; BP diastolic 30–49; PULSE 72–81; RESP 18–20; TEMP 36.1–36.8; O2SAT 92–95
[2021-09-27 00:20] LABS: Bedside Glucose 121 mg/dL (74-106)
[2021-09-27] MEDS: Lactulose 20 GM/30 ML UDC 10 GM PO ×2 (06:04→21:20)
[2021-09-27] MEDS: 0.9% Saline Lock 10 ML Syringe IV ×2 (06:07→21:21)
[2021-09-27 06:11] LABS: Absolute Lymphocyte Count 0.63 X10^3/uL (0.83-4.51); Absolute Neutrophil Count 1.3 X10^3/uL (2.0-7.7); Basophil# 0.01 X10^3/uL; Basophil% 0.4 % (0-1); Eosinophil# 0.13 X10^3/uL; Eosinophils% 5.5 % (0-5); Hematocrit 21.6 % (37-47); Hemoglobin 6.4 g/dL (12.0-15.0); Lymphocyte # 0.63 X10^3/ul (0.83-4.51); Lymphocyte % 26.8 % (19-41); Mean Corp Hgb Conc 29.6 g/dL (32-36); Mean Corpuscular Hgb 28.1 pg (27.0-32.0); Mean Corpuscular Volume 94.7 fL (81-99); Mean Platelet Vol. 13.1 fl (6.2-12.0); Monocyte# 0.24 X10^3/uL; Monocyte% 10.2 % (0-10); NRBC Flagged by Analyzer 0 % (0-5); Neutrophil # 1.31 X10^3/uL (2.7-7.7); Neutrophil % 55.8 % (47-70); POSITIVE COUNT YES; RBC Distribution Width CV 18.1 % (11.6-14.6); RBC Distribution Width SD 60.5 fl (35.1-43.9); Red Blood Count 2.28 M/mm3 (4.2-5.4); White Blood Count 2.4 K/mm3 (4.4-11.0)
[2021-09-27 06:37] LABS: Differential Indicated SCAN CRITERIA MET
[2021-09-27 06:38] LABS: Platelet Count 48 K/mm3 (150-450)
[2021-09-27 06:40] LABS: Bedside Glucose 102 mg/dL (74-106)
--- NOTE | 2021-09-27 06:40 | NURSING ---
Pts primary rn aware of plt level of 48 this am.
[2021-09-27 06:46] LABS: AST(SGOT) 43 U/L (15-37); Alanine Aminotransfer ALT/SGPT 26 U/L (13-56); Alkaline Phosphatase 73 U/L (45-117); Anion Gap 6 (5-15); BUN 18 mg/dL (7-18); BUN/Creat Ratio 22.7 RATIO (10-20); Bilirubin, Direct 0.79 mg/dL (0.00-0.30); Calcium,Total 8.3 mg/dL (8.5-10.1); Chloride 109 mmol/L (98-107); Creatinine, Serum 0.79 mg/dL (0.55-1.02); EST Glomerular Filtration Rate 78 mL/min (>60); Est Glom Filt Rate - Afr Amer 94 mL/min (>60); Estimated Creatinine Clearance 57.65 ml/min; Globulin 2.3 g/dL (2.2-4.2); Glucose 100 mg/dL (74-106); Potassium 4.1 mmol/L (3.5-5.1); Protein, Total 4.3 g/dL (6.4-8.2); Sodium Level 140 mmol/L (136-145)
[2021-09-27 06:57] LABS: Differential Comment SCANNED
[2021-09-27] MEDS: Gabapentin 400 MG Capsule PO (10:10)
[2021-09-27] MEDS: Ceftriaxone 1 GM/50 ML BAG IV (10:10)
[2021-09-27] MEDS: Montelukast 10 MG Tablet PO (10:10)
[2021-09-27] MEDS: Furosemide 20 MG Tablet PO (10:10)
[2021-09-27 11:03] LABS: Immature Platelet Fraction 15.4 % (1.0-7.9); RET-HE 24.1 pg (30-35); Reticulocyte Count 5.12 % (0.5-1.5)
[2021-09-27 11:08] LABS: Platelet Count 44 K/mm3 (150-450)
[2021-09-27 11:26] LABS: Ferritin 86 ng/mL (8-252); Iron 72 ug/dL (50-170); Iron Binding Capacity,Total 279 ug/dL (250-450); PERCENT IRON SATURATION 25.8 % (15.0-55.0)
--- NOTE | 2021-09-27 11:42 | PCM.PN.HOSP ---
Subjective Subjective Follow-up for decompensated cirrhosis with severe pancytopenia, anemia hemoglobin 6.4 Objective Data Objective Data Vital Signs: Vital Signs Temp Pulse Resp BP Pulse Ox 97 F L 77 20 H 107/40 L 93 09/27/21 11:23 09/27/21 11:23 09/27/21 11:23 09/27/21 11:40 09/27/21 11:23 Oxygen Delivery Method Room Air Weight: 203 lb 12.8 oz Body Mass Index (BMI) 37.3 Intake & Output: Intake and Output for Last 24 Hours 09/25/21 09/26/21 09/27/21 23:59 23:59 23:59 Intake Total 450 / 450 1754.58 / 1754.58 150 / 150 Balance 450 / 450 1754.58 / 1754.58 150 / 150 Lab / Micro Data Result Diagrams: 09/27/21 14:00 09/27/21 05:22 Labs: Laboratory Results - last 24 hr 09/25/21 17:03: Diff Path Review Reviewed 09/25/21 17:03: Troponin I High Sens 6 09/25/21 17:03: Crossmatch See Detail 09/26/21 17:20: POC Glucose 126 H 09/26/21 21:20: Hgb 7.0 L, Hct 23.2 L 09/27/21 00:16: POC Glucose 121 H 09/27/21 05:22: WBC 2.4 L, RBC 2.28 L, Hgb 6.4 L, Hct 21.6 L, MCV 94.7, MCH 28.1, MCHC 29.6 L D, RDW Std Deviation 60.5 H, RDW Coeff of Saundra 18.1 H, Plt Count 48 L*, MPV 13.1 H, Immature Gran % (Auto) 1.300 H, Neut % (Auto) 55.8, Lymph % (Auto) 26.8, [place] % (Auto) 10.2 H, Eos % (Auto) 5.5 H, Baso % (Auto) 0.4, Absolute Neuts (auto) 1.3 L, Absolute Lymphs (auto) 0.63 L, Nucleated RBC % 0, Differential Comment SCANNED, Diff Path Review August09/27/21 05:22: Sodium 140, Potassium 4.1, Chloride 109 H, Carbon Dioxide 25.0, Anion Gap 6, BUN 18, Creatinine 0.79, Estim Creat Clear Calc 57.65, Est GFR (MDRD) Af Amer 94, Est GFR (MDRD) Non-Af 78, BUN/Creatinine Ratio 22.7 H, Glucose 100, Calcium 8.3 L, Total Bilirubin 1.70 H, Direct Bilirubin 0.79 H, AST 43 H, ALT 26, Alkaline Phosphatase 73, Total Protein 4.3 L, Albumin 2.0 L, Globulin 2.3 09/27/21 05:22: Immature Plt Fraction 15.4 H, Retic Count 5.12 H, Immature Retic Fraction 43.90 H, Retic Hgb Equivalent 24.1 L 09/27/21 05:22: Iron 72, TIBC 279, Iron Saturation 25.8, Ferritin 86 09/27/21 06:02: POC Glucose 102 Physical Exam Narrative Physical exam General: Alert, Oriented x3, Cooperative HEENT: Atraumatic, PERRLA, EOMI, Normocephalic. Pale conjunctive Oral: No Gingival or Mucosal Lesions/ Ulcerations Neck: Supple, No JVD, Negative Carotid Bruits Lungs: Air entry diminished in bilateral lung bases. No crepitation/rhonchi Cardiovascular: Regular rate, Regular Rhythm, Normal S1, Normal S2, systolic murmur grade 4/6 over LLSB Abdomen: Bowel Sounds Present, Soft, Non Tender, mild ascites. : No renal angle tenderness. No suprapubic tenderness. Extremities: Bilateral 2+ pitting edema above knee level, Capillary Refill Less than 3 Seconds Skin: No rashes, No breakdown Musculoskeletal: No Tenderness to Palpation of Joints or Extremities Neurological: Cranial nerves II-XII grossly intact, DTR 2+/4 and Symmetrical, Neuro grossly intact Psych/Mental Status: Flat affect Assessment & Plan Assessment/Plan (1) Acute on chronic anemia: PLAN: 1. Acute on chronic anemia possible due to GI blood loss:The patient has history of decompensated Christensen related cirrhosis, diagnosed about 3 years ago progressively worsening. She had multiple EGD and banding of esophageal varices and clipping. She also had capsule endoscopy. The patient is admitted to PCU, Patient is on an octreotide drip as well as a Protonix drip. On IV ceftriaxone. Patient had 3 units of PRBC transfusion and hemoglobin went up from 4.3 g to 7 g. EGD shows grade 1 esophageal varices, RBC in the gastric antrum. 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 Multiple bleeding angiectasia in the stomach treatment with heater probe. Normal second portion of duodenum. 09/17: On clear liquid diet. Hemoglobin was 6.4 after 3 units PRBC transfusion. 1 more unit PRBC transfusion given. Repeat hemoglobin 7.6. Monitor CBC daily #2 chronic pancytopenia-as a result of chronic cirrhosis, labs will need to be monitored, makes prognosis, recovery, and medical care difficult. 7.0, platelet count 50,010 WBC 2.613. ANC 1.5 thousand, ANC 0.6 thousand 09/27: No significant improvement. Platelet count 48,000. #3 Decompensated Christensen related cirrhosis with history of gastroesophageal varices, pancytopenia, thrombocytopenia and ascites: Patient does not have features of acute encephalopathy. On Lasix, spironolactone, Coreg, lactulose and Protonix. History of multiple recurrent admission for anemia and complications of cirrhosis #4 history of small intestine AVM-patient will need follow-up at [facility] as scheduled. Patient had hysterectomy after that she was found incarcerated hernia. Her hernia was found complicated with bowel ischemia and resection of bowel by Dr. Chahal about 15 years ago patient. Total time of the visit including total time spent in counseling or coordination of care, (more than 50% of the total time, spent in obtaining medical information from nurses and other ancillary care providers,explaining to the patient about labs, imaging, diagnosis and management), discussion with GI consulted, review of labs and imaging is 30 minutes Charges/Coding Visit Charges Inpatient E&M: 55077 Subs Hosp L2
[2021-09-27 11:46] LABS: Bedside Glucose 116 mg/dL (74-106)
[2021-09-27] MEDS: DiphenhydrAMINE 25 MG Capsule 12.5 MG PO (13:59)
[2021-09-27 14:13] LABS: Hematocrit 25.2 % (37-47); Hemoglobin 7.6 g/dL (12.0-15.0)
[2021-09-27 16:51] LABS: Bedside Glucose 99 mg/dL (74-106)
[2021-09-27] MEDS: Menthol/Lanolin/Calamine/Znox 113 GM Tube 1 APPLIC TOPICAL (21:19)
[2021-09-27] MEDS: Atorvastatin Calcium 20 MG Tablet PO (21:20)
[2021-09-27] MEDS: Sertraline 100 MG Tablet 200 MG PO (21:20)
[2021-09-27 22:26] LABS: Bedside Glucose 129 mg/dL (74-106)
[2021-09-28 03:11] VITALS: PULSE 73
[2021-09-28 03:22] VITALS: BP 115/52; PULSE 71; RESP 20; TEMP 36.4; O2SAT 97
[2021-09-28] MEDS: Menthol/Lanolin/Calamine/Znox 113 GM Tube 1 APPLIC TOPICAL (05:41)
[2021-09-28 06:02] LABS: Absolute Lymphocyte Count 0.64 X10^3/uL (0.83-4.51); Absolute Neutrophil Count 1.4 X10^3/uL (2.0-7.7); Eosinophil# 0.13 X10^3/uL; Eosinophils% 5.4 % (0-5); Hematocrit 25.4 % (37-47); Hemoglobin 7.8 g/dL (12.0-15.0); Lymphocyte # 0.64 X10^3/ul (0.83-4.51); Lymphocyte % 26.4 % (19-41); Mean Corp Hgb Conc 30.7 g/dL (32-36); Mean Corpuscular Hgb 28.7 pg (27.0-32.0); Mean Corpuscular Volume 93.4 fL (81-99); Monocyte# 0.26 X10^3/uL; Monocyte% 10.7 % (0-10); NRBC Flagged by Analyzer 0 % (0-5); Neutrophil # 1.37 X10^3/uL (2.7-7.7); Neutrophil % 56.7 % (47-70); POSITIVE COUNT YES; RBC Distribution Width CV 18.1 % (11.6-14.6); RBC Distribution Width SD 57.3 fl (35.1-43.9); Red Blood Count 2.72 M/mm3 (4.2-5.4); White Blood Count 2.4 K/mm3 (4.4-11.0)
[2021-09-28 06:05] LABS: Differential Indicated SCAN CRITERIA MET
[2021-09-28 06:06] LABS: Platelet Count 50 K/mm3 (150-450)
[2021-09-28 06:36] LABS: Anisocytosis 1+; Differential Comment SCANNED; Platelet Estimate MKD DEC (ADEQ)
[2021-09-28 06:37] LABS: AST(SGOT) 40 U/L (15-37); Alanine Aminotransfer ALT/SGPT 24 U/L (13-56); Albumin, Serum 2.2 g/dL (3.2-5.0); Alkaline Phosphatase 74 U/L (45-117); Anion Gap 5 (5-15); BUN 14 mg/dL (7-18); Bilirubin, Direct 0.97 mg/dL (0.00-0.30); Calcium,Total 8.4 mg/dL (8.5-10.1); Chloride 105 mmol/L (98-107); EST Glomerular Filtration Rate 90 mL/min (>60); Est Glom Filt Rate - Afr Amer 109 mL/min (>60); Estimated Creatinine Clearance 65.06 ml/min; Globulin 2.4 g/dL (2.2-4.2); Glucose 101 mg/dL (74-106); Potassium 3.7 mmol/L (3.5-5.1); Protein, Total 4.6 g/dL (6.4-8.2); Sodium Level 138 mmol/L (136-145)
[2021-09-28 07:02] VITALS: PULSE 65
--- NOTE | 2021-09-28 07:53 | PCM.DC ---
Discharge Instructions Diet Discharge Diet: 6 Cup Fluid Restriction and 2000 mg Sodium Diet Activity Discharge Activity: Return to Normal Activity and May Not Drive Weight Bearing Status: Weight bearing as tolerated Dressing / Incision Call your doctor if you observe: Fever of 101 or Higher, Coldness, Increased Pain, Numbness or Tingling, Change in Color, Inability to urinate, Inability to have a bowel movement, Using more than 1 pad per hour, Shortness of breath, Dizziness, Fainting spells, Swelling in the ankles, Chest pain, Prolonged hiccupping, Increased palpitations (irregular heartbeat), Calf discomfort and Uncontrolled pain Follow Up Care Test Results: Test results from this visit will be discussed in further detail at your follow-up appointment, if applicable. Discharge Plan Admission Admit Date/Time: 09/25/21 19:56 Primary Reason for Your Visit: Acute on chronic anemia due to acute GI blood loss Attending Provider: Abdias Moreira Primary Care Provider: Maxwell Lares Consulting Providers: Brenden Giraldo Discharge Orders/Prescriptions Prescriptions: New furosemide 40 mg Tablet 40 mg PO DAILY Qty: 30 RF: 2 ascorbic acid (vitamin C) 500 mg tablet 500 mg PO BID Qty: 60 RF: 1 ferrous sulfate 325 mg (65 mg iron) tablet,delayed release (DR/EC) 325 mg PO QODAY Qty: 30 RF: 1 Continued metformin 500 mg tablet 500 mg PO BREAKFAST RF: 0 albuterol sulfate 2.5 mg /3 mL (0.083 %) solution for nebulization 2.5 mg inhalation Q4H PRN PRN (Reason: wheezing/shortness of breath) RF: 0 gabapentin 400 mg capsule 400 mg PO DAILY RF: 0 sertraline 100 mg tablet 200 mg PO QHS RF: 0 simvastatin 40 mg tablet 40 mg PO QHS RF: 0 montelukast 10 mg tablet 10 mg PO DAILY RF: 0 nystatin [Nyamyc] 100,000 unit/gram powder 1 applic TOPICAL 4X/DAY PRN PRN (Reason: yeast/excoriated areas) RF: 0 loratadine 10 mg tablet 10 mg PO DAILY RF: 0 lactulose 10 gram/15 mL solution 15 ml PO TID RF: 0 cholecalciferol (vitamin D3) 50 mcg (2,000 unit) Tablet 50 mcg PO DAILY RF: 0 albuterol sulfate [Ventolin HFA] 90 mcg/actuation HFA aerosol inhaler 2 inh INHALATION Q4H PRN (Reason: SOB) RF: 0 carvedilol 3.125 mg tablet 6.25 mg PO BID Qty: 0 RF: 0 spironolactone 50 mg tablet 150 mg PO DAILY Qty: 0 RF: 0 Changed omeprazole 40 mg capsule,delayed release(DR/EC) 40 mg PO BID Qty: 60 RF: 2 Discontinued furosemide 20 mg tablet 20 mg PO DAILY RF: 0 Referrals / Follow Up: Arturo Saini DO [STAFF PHYSICIAN] - Within 2 Weeks (for esophageal varices, cirrhosis) Maxwell Lares MD [Primary Care Provider] - Within 1 Week Disposition Disposition (needs filled in before D/C Order can be placed): Home, Self Care
--- NOTE | 2021-09-28 07:54 | PCM.DC.SUM ---
Providers Date of Admission: 09/25/21 Date of Discharge: 09/28/21 Primary Care Physician: Dr. Maxwell Lares MD Consultations 09/25/21 20:15 Consult: Gastroenterology Routine Consulting Provider: [facility] Reason for Consult: Acute anemia EMERGENT Consult: No MD Notified: Yes Date Notified: 09/25/21 Time Notified: 20:01 Method of Notification: Verbal Reason For Visit: ACUTE ANEMIA Diagnosis Discharge Diagnosis (1) Acute on chronic anemia: Status: Chronic Code(s): D64.9 - Anemia, unspecified Medications at Discharge Home Medications albuterol sulfate 2.5 mg INHALATION Q4H PRN PRN 08/19/21 cholecalciferol (vitamin D3) 50 mcg PO DAILY 08/19/21 gabapentin 400 mg PO DAILY 08/19/21 lactulose 15 ml PO TID 08/19/21 loratadine 10 mg PO DAILY 08/19/21 metformin 500 mg PO BREAKFAST 08/19/21 montelukast 10 mg PO DAILY 08/19/21 nystatin [Nyamyc] 1 applic TOPICAL 4X/DAY PRN PRN 08/19/21 sertraline 200 mg PO QHS 08/19/21 simvastatin 40 mg PO QHS 08/19/21 albuterol sulfate [Ventolin HFA] 2 inh INHALATION Q4H PRN 09/25/21 ascorbic acid (vitamin C) 500 mg PO BID #60 tab 09/28/21 carvedilol 6.25 mg PO BID #0 tab 09/28/21 ferrous sulfate 325 mg PO QODAY #30 tab 09/28/21 furosemide 40 mg PO DAILY #30 tab 09/28/21 omeprazole 40 mg PO BID #60 cap 09/28/21 spironolactone 150 mg PO DAILY #0 tab 09/28/21 Hospital Course Summary of Care Provided Hospital Course: 60-year-old female was admitted for abnormal outpatient lab, hemoglobin 4.3, WBC count 1.8 thousand, platelet count 49,000 with history of severe decompensated cirrhosis from Christensen. Patient was last hospitalized in August 2021 for similar condition. Patient has procedure scheduled for AVM ablation in the small intestine in [facility]. Patient denied melena, hematemesis or hematochezia. Patient was further admitted on octreotide and Protonix drip and IV ceftriaxone from ED 1. Acute on chronic anemia possible due to GI blood loss:The patient has history of decompensated Christensen related cirrhosis, diagnosed about 3 years ago progressively worsening. She had multiple EGD and banding of esophageal varices and clipping. She also had capsule endoscopy. The patient is admitted to PCU, Patient is on an octreotide drip as well as a Protonix drip. On IV ceftriaxone. Patient had 3 units of PRBC transfusion and hemoglobin went up from 4.3 g to 7 g. EGD shows grade 1 esophageal varices, RBC in the gastric antrum. 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 Multiple bleeding angiectasia in the stomach treatment with heater probe. Normal second portion of duodenum. 09/27: On clear liquid diet. Hemoglobin was 6.4 after 3 units PRBC transfusion. 1 more unit PRBC transfusion given. [id number] hemoglobin 7.6. 09/28: Hemoglobin increased to 7.8. B12 and folate pending. Patient had total 4 unit of PRBC transfusion. Patient discharged on omeprazole 40 mg p.o. twice daily, ferrous sulfate and vitamin C. TB 2.1, creatinine 0.7. INR 1.4. Meld sodium score is 14, estimated 90-day mortality less than 2%. #2 chronic pancytopenia-as a result of chronic cirrhosis, labs will need to be monitored, makes prognosis, recovery, and medical care difficult. 7.0, platelet count 50,010 WBC 2.613. ANC 1.5 thousand, ANC 0.6 thousand 09/27: No significant improvement. Platelet count 48,000. 09/28: No significant change in WBC count and platelet count. #3 Decompensated Christensen related cirrhosis with history of gastroesophageal varices, pancytopenia, thrombocytopenia and ascites: Patient does not have features of acute encephalopathy. On Lasix, spironolactone, Coreg, lactulose and Protonix. History of multiple recurrent admission for anemia and complications of cirrhosis 09/28: Dose of Lasix increased to 40 mg daily, continue spironolactone 150 mg daily, Coreg 6.25 mg twice daily along with lactulose. #4 history of small intestine AVM-patient will need follow-up at [facility] as scheduled. Patient had hysterectomy after that she was found incarcerated hernia. Her hernia was found complicated with bowel ischemia and resection of bowel by Dr. Chahal about 15 years ago patient. Discharge medication reconciliation done. Discharge follow-up instructions completed. Discharge process discussed with the patient and all questions were answered to patient's satisfaction. Total time spent, exact 35 minutes on discharge meds reconciliation, examination, coordination of care with nurses and ancillary staff, review of imaging and blood test and discussion with the patient on follow-up instructions. Physical Exam Narrative Patient not short of breath. On baseline. Bilateral leg swelling and ascites Physical exam General: Alert, Oriented x3, Cooperative HEENT: Atraumatic, PERRLA, EOMI, Normocephalic. Pale conjunctive Oral: No Gingival or Mucosal Lesions/ Ulcerations Neck: Supple, No JVD, Negative Carotid Bruits Lungs: Air entry diminished in bilateral lung bases. No crepitation/rhonchi Cardiovascular: Regular rate, Regular Rhythm, Normal S1, Normal S2, systolic murmur grade 4/6 over LLSB Abdomen: Bowel Sounds Present, Soft, Non Tender, mild to moderate ascites. : No renal angle tenderness. No suprapubic tenderness. Extremities: Bilateral 2+ pitting edema above knee level, Capillary Refill Less than 3 Seconds Skin: No rashes, No breakdown Musculoskeletal: No Tenderness to Palpation of Joints or Extremities. Muscle strength 4/5 at major joints of lower extremities. Neurological: Cranial nerves II-XII grossly intact, DTR 2+/4 and Symmetrical, Neuro grossly intact Psych/Mental Status: Flat affect Weight / BMI Weight Weight: 203 lb 12.8 oz Body Mass Index (BMI) 37.3 ABG / Lab / Microbiology Data Result Diagrams: 09/28/21 05:25 09/28/21 05:25 Laboratory: Laboratory Results - last 24 hr 09/25/21 17:03: Crossmatch See Detail 09/27/21 05:22: Immature Plt Fraction 15.4 H, Retic Count 5.12 H, Immature Retic Fraction 43.90 H, Retic Hgb Equivalent 24.1 L 09/27/21 05:22: Iron 72, TIBC 279, Iron Saturation 25.8, Ferritin 86 09/27/21 11:39: POC Glucose 116 H 09/27/21 14:00: Hgb 7.6 L, Hct 25.2 L 09/27/21 16:45: POC Glucose 99 09/27/21 20:15: POC Glucose 129 H 09/28/21 05:25: WBC 2.4 L, RBC 2.72 L, Hgb 7.8 L, Hct 25.4 L, MCV 93.4, MCH 28.7, MCHC 30.7 L, RDW Std Deviation 57.3 H, RDW Coeff of Saundra 18.1 H, Plt Count 50 L*, MPV TNP, Immature Gran % (Auto) 0.800, Neut % (Auto) 56.7, Lymph % (Auto) 26.4, [place] % (Auto) 10.7 H, Eos % (Auto) 5.4 H, Baso % (Auto) 0.0, Absolute Neuts (auto) 1.4 L, Absolute Lymphs (auto) 0.64 L, Nucleated RBC % 0, Differential Comment SCANNED, Diff Path Review May kinjal, Platelet Estimate MKD DEC, Anisocytosis 1+ 09/28/21 05:25: Sodium 138, Potassium 3.7, Chloride 105, Carbon Dioxide 28.0, Anion Gap 5, BUN 14, Creatinine 0.70, Estim Creat Clear Calc 65.06, Est GFR (MDRD) Af Amer 109, Est GFR (MDRD) Non-Af 90, BUN/Creatinine Ratio 20.0, Glucose 101, Calcium 8.4 L, Total Bilirubin 2.10 H, Direct Bilirubin 0.97 H, AST 40 H, ALT 24, Alkaline Phosphatase 74, Total Protein 4.6 L, Albumin 2.2 L, Globulin 2.4 Meaningful Use Info Meaningful Use Diagnoses (Choose all that apply): None applicable Discharge Plan Admission Admit Date/Time: 09/25/21 19:56 Primary Reason for Your Visit: Acute on chronic anemia due to acute GI blood loss Attending Provider: Abdias Moreira Primary Care Provider: Maxwell Lares Consulting Providers: Brenden Giraldo Discharge Orders/Prescriptions Prescriptions: New furosemide 40 mg Tablet 40 mg PO DAILY Qty: 30 RF: 2 ascorbic acid (vitamin C) 500 mg tablet 500 mg PO BID Qty: 60 RF: 1 ferrous sulfate 325 mg (65 mg iron) tablet,delayed release (DR/EC) 325 mg PO QODAY Qty: 30 RF: 1 Continued metformin 500 mg tablet 500 mg PO BREAKFAST RF: 0 albuterol sulfate 2.5 mg /3 mL (0.083 %) solution for nebulization 2.5 mg inhalation Q4H PRN PRN (Reason: wheezing/shortness of breath) RF: 0 gabapentin 400 mg capsule 400 mg PO DAILY RF: 0 sertraline 100 mg tablet 200 mg PO QHS RF: 0 simvastatin 40 mg tablet 40 mg PO QHS RF: 0 montelukast 10 mg tablet 10 mg PO DAILY RF: 0 nystatin [Nyamyc] 100,000 unit/gram powder 1 applic TOPICAL 4X/DAY PRN PRN (Reason: yeast/excoriated areas) RF: 0 loratadine 10 mg tablet 10 mg PO DAILY RF: 0 lactulose 10 gram/15 mL solution 15 ml PO TID RF: 0 cholecalciferol (vitamin D3) 50 mcg (2,000 unit) Tablet 50 mcg PO DAILY RF: 0 albuterol sulfate [Ventolin HFA] 90 mcg/actuation HFA aerosol inhaler 2 inh INHALATION Q4H PRN (Reason: SOB) RF: 0 carvedilol 3.125 mg tablet 6.25 mg PO BID Qty: 0 RF: 0 spironolactone 50 mg tablet 150 mg PO DAILY Qty: 0 RF: 0 Changed omeprazole 40 mg capsule,delayed release(DR/EC) 40 mg PO BID Qty: 60 RF: 2 Discontinued furosemide 20 mg tablet 20 mg PO DAILY RF: 0 Referrals / Follow Up: Arturo Saini DO [STAFF PHYSICIAN] - Within 2 Weeks (for esophageal varices, cirrhosis) Maxwell Lares MD [Primary Care Provider] - Within 1 Week Disposition Disposition (needs filled in before D/C Order can be placed): Home, Self Care Charges/Coding Visit Charges Inpatient E&M: 08472 Disch Hosp
[2021-09-28 09:22] VITALS: BP 114/41; PULSE 69; RESP 20; TEMP 36.3; O2SAT 96
[2021-09-28] MEDS: Furosemide 40 MG Tablet PO (09:56)
[2021-09-28] MEDS: Gabapentin 400 MG Capsule PO (09:56)
[2021-09-28] MEDS: Montelukast 10 MG Tablet PO (09:56)
[2021-09-28] MEDS: Ceftriaxone 1 GM/50 ML BAG IV (09:56)
[2021-09-28 11:41] LABS: Bedside Glucose 169 mg/dL (74-106)
[2021-09-29 08:33] LABS: Vitamin B12 295 pg/mL (211-911)
[2021-09-29 12:46] LABS: Pathologist Review Reviewed
[2021-09-29 12:46] LABS: Pathologist Review Reviewed
[2021-09-29 12:46] LABS: Pathologist Review Reviewed
== END 2021-09-28 13:53 | disposition home or self-care (01) | DRG 253 ==
LOC: ED 17:40 → PCU 20:11
PROVIDERS: Anesthesiology; Internal Medicine Gastroenterology; Admitting Provider Internal Medicine; Emergency Provider Emergency Medicine; PCP Internal Medicine; Visit Provider Internal Medicine
PROC: 0DJ08ZZ Inspection of Upper Intestinal Tract, Via Natural or Artificial Opening Endoscopic (ICD-10-PCS; CPT 43235; principal; 2021-09-26 11:55)
DX: K31.811 Angiodysplasia of stomach and duodenum with bleeding (principal); D61.818 Other pancytopenia; K74.60 Unspecified cirrhosis of liver; I85.10 Secondary esophageal varices without bleeding; E11.9 Type 2 diabetes mellitus without complications; D62 Acute posthemorrhagic anemia; K75.81 Nonalcoholic steatohepatitis (NASH); Z90.49 Acquired absence of other specified parts of digestive tract; Z90.710 Acquired absence of both cervix and uterus; Z79.84 Long term (current) use of oral hypoglycemic drugs; Z79.899 Other long term (current) drug therapy; Z86.73 Personal history of transient ischemic attack (TIA), and cerebral infarction without residual deficits; Z87.891 Personal history of nicotine dependence
CPT/HCPCS: 36415; 80048; 80076; 82607; 82728; 82746; 82962; 83540; 83550; 84484; 85014; 85018; 85025; 85045; 85610; 85730; 86850; 86900; 86901; 86920; 86922; 93005; 94640; 99285; J7040; J7050; J7120; P9016; A4216; J2405

== ENCOUNTER 2021-10-07 12:04 | Inpatient (IN) | payer MEDICAID, SELFPAY ==
[2021-10-07] VITALS (17 sets, daily range): BP systolic 90–137; BP diastolic 33–91; PULSE 78–85; RESP 16–21; TEMP 36.1–36.9; O2SAT 94–99; BMI 37.1; BMI 38.1
[2021-10-07 12:55] LABS: Absolute Lymphocyte Count 0.76 X10^3/uL (0.83-4.51); Absolute Neutrophil Count 1.8 X10^3/uL (2.0-7.7); Basophil# 0.01 X10^3/uL; Basophil% 0.3 % (0-1); Eosinophil# 0.13 X10^3/uL; Eosinophils% 4.2 % (0-5); Hematocrit 18.7 % (37-47); Lymphocyte # 0.76 X10^3/ul (0.83-4.51); Lymphocyte % 24.6 % (19-41); Mean Corp Hgb Conc 30.5 g/dL (32-36); Mean Corpuscular Hgb 29.8 pg (27.0-32.0); Mean Corpuscular Volume 97.9 fL (81-99); Mean Platelet Vol. 12.3 fl (6.2-12.0); Monocyte# 0.35 X10^3/uL; Monocyte% 11.3 % (0-10); NRBC Flagged by Analyzer 0 % (0-5); Neutrophil # 1.82 X10^3/uL (2.7-7.7); POSITIVE COUNT YES; POSITIVE MORPHOLOGY YES; Platelet Count 64 K/mm3 (150-450); RBC Distribution Width CV 19.9 % (11.6-14.6); RBC Distribution Width SD 65.6 fl (35.1-43.9); Red Blood Count 1.91 M/mm3 (4.2-5.4); White Blood Count 3.1 K/mm3 (4.4-11.0)
[2021-10-07 13:03] LABS: Differential Indicated SCAN CRITERIA MET; Hemoglobin 5.7 g/dL (12.0-15.0)
[2021-10-07 13:11] LABS: ALB/GLOB Ratio 0.8 RATIO (0.9-2.4); AST(SGOT) 34 U/L (15-37); Alanine Aminotransfer ALT/SGPT 24 U/L (13-56); Alkaline Phosphatase 76 U/L (45-117); Anion Gap 6 (5-15); BUN 43 mg/dL (7-18); Calcium,Total 8.5 mg/dL (8.5-10.1); Chloride 109 mmol/L (98-107); Creatinine, Serum 1.05 mg/dL (0.55-1.02); EST Glomerular Filtration Rate 56 mL/min (>60); Est Glom Filt Rate - Afr Amer 68 mL/min (>60); Estimated Creatinine Clearance 43.37 ml/min; Globulin 2.5 g/dL (2.2-4.2); Glucose 122 mg/dL (74-106); Potassium 4.5 mmol/L (3.5-5.1); Protein, Total 4.5 g/dL (6.4-8.2); Sodium Level 140 mmol/L (136-145)
[2021-10-07 13:21] LABS: Anisocytosis 1+; Platelet Estimate MOD DEC (ADEQ); Red Cell Morphology N CHROM NORMAL (NORM C&C)
--- NOTE | 2021-10-07 13:56 | CT_ITS ---
EXAM: CT ANGIOGRAPHY ABDOMEN AND PELVIS WITHOUT AND WITH INTRAVENOUS CONTRAST CLINICAL INDICATION: GI bleeding Technologist Notes CIRRHOSIS OF LIVER, DB, HGB 5.8 TECHNIQUE: Helically acquired angiography images were obtained of the abdomen and pelvis without and with intravenous contrast. This CT exam was performed using one or more of the following dose reduction techniques: automated exposure control, adjustment of the mA and/or kV according to patient size, and/or use of iterative reconstruction technique. This report was created using [employer] report generation technology. MIP reconstructed images were created and reviewed. CONTRAST: IV 100mL [id number]-370 RADIATION DOSE: CTDIvol = 32.64 mGy, DLP = 1130.87 mGy-cm COMPARISON: None. FINDINGS: VASCULATURE: AORTA: Mesenteric edema. Prominent dilated vessels surrounding the aorta. Combined findings likely relate to mesenteric congestion. There are calcifications of the abdominal aorta. This is consistent for atherosclerotic disease. There is no abdominal aortic aneurysm. No dissection. CELIAC TRUNK AND MESENTERIC ARTERIES: No acute findings. No occlusion or significant stenosis. No dissection. RENAL ARTERIES: No acute findings. No occlusion or significant stenosis. No dissection. ILIAC ARTERIES: No acute findings. No occlusion or significant stenosis. No dissection. LOWER THORAX: Paraesophageal varices. Splenic varices. Recanalization of the umbilical vein. Findings suggest portal hypertension. Lung bases are clear. No cardiomegaly. No significant pericardial effusion. ABDOMEN: LIVER: There is a diffuse contour abnormality of the liver consistent with cirrhotic changes. GALLBLADDER AND BILE DUCTS: The gallbladder is contracted. There is a solitary gallstone. No gallbladder distention or wall edema. No intra- or extrahepatic biliary ductal dilation. PANCREAS: Normal pancreas. No focal cystic or solid mass. SPLEEN: There is mild splenomegaly. ADRENALS: Unremarkable. No nodules. KIDNEYS AND URETERS: Unremarkable. Normal renal size and position. No hydronephrosis. STOMACH AND BOWEL: Focal wall thickening of the antrum of stomach. This can suggest a gastritis. No evidence for prior surgery of the small intestine. No stomach or bowel distention. PELVIS: APPENDIX: There is non-visualization of the appendix. BLADDER: Normal urinary bladder. REPRODUCTIVE: There is absence of the uterus consistent with a prior hysterectomy. ABDOMEN and PELVIS: INTRAPERITONEAL SPACE: Ascites. No free air. BONES/JOINTS: There are diffuse degenerative changes of the visualized lumbar spine. No suspicious lytic or blastic abnormality. SOFT TISSUES: Anterior abdominal wall hernia mesh in place. There is an umbilical hernia containing fat. LYMPH NODES: Subcentimeter periaortic lymph nodes. CT/CT ANGIO ABD&PEL W/O&W/DYE IMPRESSION: 1. There is a diffuse contour abnormality of the liver consistent with cirrhotic changes. 2. Ascites. 3. Paraesophageal varices. Splenic varices. Recanalization of the umbilical vein. Findings suggest portal hypertension. 4. The gallbladder is contracted. There is a solitary gallstone. 5. There is mild splenomegaly. 6. Focal wall thickening of the antrum of stomach. This can suggest a gastritis. Electronically Signed: Williams Weston MD at 15:39 EDT ,
--- NOTE | 2021-10-07 14:04 | PCM.HP.STD ---
Documented by User: WHITNEY Dial 10/07/21 14:29 HPI - General General Date of Admission: 10/07/21 Date of Service: 10/07/21 Chief Complaint: Abnormal Labs HPI Narrative AMAURY MOORE, is a 61 F who presents for hemoglobin 5.8 today at outpatient follow-up with Dr. Saini. Dr. Saini sent patient to ER for further evaluation. Patient has a history of cirrhosis, GI bleeding, anemia requiring transfusions. Patient has had frequent admissions in the past. Patient has been referred to [facility] for TIPS procedure by Dr. Saini. [facility] Medical History Acute on chronic anemia Anemia Anxiety Asthma Cirrhosis Decompensation of cirrhosis of liver Depression Diabetes Former smoker GERD (gastroesophageal reflux disease) GI bleed GI bleeding Pancytopenia Seizures Severe anemia Stroke/cerebrovascular accident Thrombocytopenia Home Medications albuterol sulfate 2.5 mg inhalation Q4H PRN PRN wheezing/shortness of breath 08/19/21 [History Last Taken 2 Days Ago ~09/23/21] cholecalciferol (vitamin D3) 50 mcg (2,000 unit) tablet 50 mcg PO DAILY health maintenance 08/19/21 [History Last Taken 10/06/21] gabapentin 400 mg capsule 400 mg PO DAILY PAIN 08/19/21 [History Last Taken 10/07/21] lactulose 10 gram/15 mL oral solution 15 ml PO TID liver 08/19/21 [History Last Taken 09/24/21] loratadine 10 mg tablet 10 mg PO DAILY ALLERGIES 08/19/21 [History Last Taken 10/07/21] metformin 500 mg tablet 500 mg PO BREAKFAST diabetes 08/19/21 [History Last Taken 10/07/21] montelukast 10 mg tablet 10 mg PO DAILY health maintenance 08/19/21 [History Last Taken 10/06/21] nystatin 100,000 unit/gram topical powder (Nyamyc) 1 applic topical 4X/DAY PRN PRN yeast/excoriated areas 08/19/21 [History Last Taken 10/07/21] sertraline 100 mg tablet 200 mg PO QHS mood 08/19/21 [History Last Taken 10/06/21] simvastatin 40 mg tablet 40 mg PO QHS cholesterol 08/19/21 [History Last Taken 10/06/21] albuterol sulfate 90 mcg/actuation aerosol inhaler (Ventolin HFA) 2 inh inhalation Q4H PRN SOB 09/25/21 [History Last Taken 10/07/21] ascorbic acid (vitamin C) 500 mg tablet 500 mg PO BID #60 tabs 09/28/21 [Rx Last Taken 10/07/21] carvedilol 3.125 mg tablet 6.25 mg PO BID BP #0 tabs 09/28/21 [Rx Last Taken 10/07/21] furosemide 40 mg tablet 40 mg PO DAILY #30 tabs 09/28/21 [Rx Last Taken 10/07/21] omeprazole 40 mg capsule,delayed release 40 mg PO BID stomach #60 caps 09/28/21 [Rx Last Taken 10/07/21] spironolactone 50 mg tablet 100 mg PO DAILY FLUID 10/07/21 [History Last Taken 10/07/21] Allergy/AdvReac Type Severity Reaction Status Date / Time No Known Allergies Allergy Verified 10/07/21 12:05 Social History Smoking Status: Former smoker ROS Constitutional Constitutional: Reports fatigue; Denies anorexia, change in weight, chills, malaise or weakness Cardiovascular Cardiovascular: Reports edema; Denies chest pain, palpitations or syncope Respiratory/Chest Respiratory/Chest: Denies cough, shortness of breath at rest, shortness of breath with exertion or wheezing Gastrointestinal Gastrointestinal: Denies abdominal pain, constipation, diarrhea, nausea or vomiting Genitourinary Genitourinary: Denies dysuria Musculoskeletal Musculoskeletal: Denies back pain, extremity pain, joint pain, joint stiffness or joint swelling Integumentary Integumentary: Denies dry skin Neurologic Neurologic: Denies abnormal gait, abnormal speech, confusion or dizziness Psychiatric Psychiatric: Denies anxiety or depression Endocrine Endocrinology: Denies change in body appearance Hematologic/Lymphatic Hematologic/Lymphatic: Reports anemia Vital Signs Vital Signs Vital Signs: 10/07/21 12:05 10/07/21 12:21 10/07/21 13:36 Temperature 97.9 F 98.5 F Temperature Source Temporal Oral Pulse Rate 78 78 Respiratory Rate 16 20 H Respiratory Effort Normal Non-Labored Respiratory Pattern Normal Blood Pressure 94/47 L 90/69 Blood Pressure Mean 62 76 Pulse Ox 97 96 Oxygen Delivery Method Room Air Room Air Weight Weight: 203 lb Body Mass Index (BMI) 37.1 Physical Exam Const oriented x3 Orientation / Consciousness: lethargic HEENT normocephalic and head/scalp atraumatic Eyes conjunctivae normal and no scleral icterus Neck no lymphadenopathy and supple General: trachea midline Resp normal respiratory effort, normal air movement and clear to auscultation bilaterally Cardio regular rhythm, S1 normal heart sound, S2 normal heart sound and peripheral pulses 2+ throughout GI soft to palpation and non-tender Extremity normal capillary refill General Extremity: Negative for clubbing or cyanosis Skin General Skin Exam: dry skin Lesions: no lesions Rashes: no rashes Neuro no focal motor deficits and no sensory deficits noted Speech: speech normal Motor Exam: general weakness Psych cooperative and affect normal Results Lab / Micro Data Result Diagrams: 10/07/21 12:42 10/07/21 12:42 Labs: Laboratory Results - last 24 hr 10/07/21 12:42: WBC 3.1 L, RBC 1.91 L, Hgb 5.7 L*, Hct 18.7 L, MCV 97.9, MCH 29.8, MCHC 30.5 L, RDW Std Deviation 65.6 H, RDW Coeff of Saundra 19.9 H, Plt Count 64 L, MPV 12.3 H, Immature Gran % (Auto) 0.600, Neut % (Auto) 59.0, Lymph % (Auto) 24.6, [place] % (Auto) 11.3 H, Eos % (Auto) 4.2, Baso % (Auto) 0.3, Absolute Neuts (auto) 1.8 L, Absolute Lymphs (auto) 0.76 L, Nucleated RBC % 0, Diff Path Review May foll, Platelet Estimate MOD DEC, RBC Morphology N CHROM, Anisocytosis 1+ 10/07/21 12:42: Sodium 140, Potassium 4.5, Chloride 109 H, Carbon Dioxide 25.0, Anion Gap 6, BUN 43 H, Creatinine 1.05 H, Estim Creat Clear Calc 43.37, Est GFR (MDRD) Af Amer 68, Est GFR (MDRD) Non-Af 56 L, BUN/Creatinine Ratio 41.0 H, Glucose 122 H, Calcium 8.5, Total Bilirubin 1.10 H, AST 34, ALT 24, Alkaline Phosphatase 76, Total Protein 4.5 L, Albumin 2.0 L, Globulin 2.5, Albumin/Globulin Ratio 0.8 L Assessment & Plan Assessment/Plan (1) Anemia requiring transfusions: (2) GI bleeding: PLAN: Plan 1. Acute on chronic blood loss anemia secondary to chronic GI bleeding -Admit to PCU -Packed red blood cells x2 units ordered -Lasix 40 mg IV x1 to be given between units of packed red blood cells -Patient staffed with Dr. Saini's office. Patient is known to Dr. Saini and this is an acute on chronic issue -Patient underwent EGD 09/26/2021 which showed multiple AVMs which were treated with heater probe 2. Cirrhosis -Continue lactulose, furosemide, spironolactone -Patient referred to [facility] for TIPS procedure -Cirrhosis has been stable 3. Diabetes mellitus type 2 -Hold Metformin -ACHS blood sugar check with SSI DVT prophylaxis-SCDs This patient was seen by Justyna Richard NP-C under the supervision of Dr. Giraldo. 29 minutes spent in clinical coordination of patient's plan of care. Documented by User: Dr. Brenden Giraldo DO 10/07/21 17:49 HPI - General General Date of Admission: 10/07/21 [facility] Medical History Acute on chronic anemia Anemia Anxiety Asthma Cirrhosis Decompensation of cirrhosis of liver Depression Diabetes Former smoker GERD (gastroesophageal reflux disease) GI bleed GI bleeding Pancytopenia Seizures Severe anemia Stroke/cerebrovascular accident Thrombocytopenia Home Medications albuterol sulfate 2.5 mg inhalation Q4H PRN PRN wheezing/shortness of breath 08/19/21 [History Last Taken 2 Days Ago ~09/23/21] cholecalciferol (vitamin D3) 50 mcg (2,000 unit) tablet 50 mcg PO DAILY health maintenance 08/19/21 [History Last Taken 10/06/21] gabapentin 400 mg capsule 400 mg PO DAILY PAIN 08/19/21 [History Last Taken 10/07/21] lactulose 10 gram/15 mL oral solution 15 ml PO TID liver 08/19/21 [History Last Taken 09/24/21] loratadine 10 mg tablet 10 mg PO DAILY ALLERGIES 08/19/21 [History Last Taken 10/07/21] metformin 500 mg tablet 500 mg PO BREAKFAST diabetes 08/19/21 [History Last Taken 10/07/21] montelukast 10 mg tablet 10 mg PO DAILY health maintenance 08/19/21 [History Last Taken 10/06/21] nystatin 100,000 unit/gram topical powder (Nyamyc) 1 applic topical 4X/DAY PRN PRN yeast/excoriated areas 08/19/21 [History Last Taken 10/07/21] sertraline 100 mg tablet 200 mg PO QHS mood 08/19/21 [History Last Taken 10/06/21] simvastatin 40 mg tablet 40 mg PO QHS cholesterol 08/19/21 [History Last Taken 10/06/21] albuterol sulfate 90 mcg/actuation aerosol inhaler (Ventolin HFA) 2 inh inhalation Q4H PRN SOB 09/25/21 [History Last Taken 10/07/21] ascorbic acid (vitamin C) 500 mg tablet 500 mg PO BID #60 tabs 09/28/21 [Rx Last Taken 10/07/21] carvedilol 3.125 mg tablet 6.25 mg PO BID BP #0 tabs 09/28/21 [Rx Last Taken 10/07/21] furosemide 40 mg tablet 40 mg PO DAILY #30 tabs 09/28/21 [Rx Last Taken 10/07/21] omeprazole 40 mg capsule,delayed release 40 mg PO BID stomach #60 caps 09/28/21 [Rx Last Taken 10/07/21] spironolactone 50 mg tablet 100 mg PO DAILY FLUID 10/07/21 [History Last Taken 10/07/21] Allergy/AdvReac Type Severity Reaction Status Date / Time No Known Allergies Allergy Verified 10/07/21 12:05 Social History Smoking Status: Former smoker Results Lab / Micro Data Result Diagrams: 10/07/21 12:42 10/07/21 12:42 Assessment & Plan Assessment/Plan (1) Anemia requiring transfusions: (2) GI bleeding: Charges/Coding Addendum Addendum: Patient was seen and examined today independently of Marilyn Richard, she was sent to the ER at [facility] by her automatic outsole cutter due to a low outpatient hemoglobin of 5.8. Patient has a history of liver cirrhosis and GI bleeding in the past. Labs obtained today in the emergency room showed a WBC of 3.1, hemoglobin was 5.7, and platelet count was 64,000. Chemistry panel was abnormal for BUN of 43 and a creatinine of 1.05, bilirubin was 1.1. On examination she appeared in good health and spirits, she does not appear to be in any distress. Vital signs as documented. Skin warm and dry and without overt rashes. Neck without JVD, thyroid appears normal, trachea is midline, neck is supple. Lungs clear, normal air movement was noted. Heart exam notable for regular rhythm, normal sounds and absence of murmurs, rubs or gallops. Abdomen unremarkable and without evidence of organomegaly, masses, or abdominal aortic enlargement, bowel sounds are present in all 4 quadrants, no abdominal tenderness was noted. Extremities nonedematous, no cyanosis was noted, no clubbing was noted. Neuro: Cranial nerves II through XII are grossly intact, no focal motor deficits were noted, sensation to light touch and pinprick is intact, motor exam 5/5 throughout. Psych: Patient is alert and oriented x3, she does not appear anxious or depressed, she does not appear agitated. Impression: #1 acute on chronic anemia secondary to GI blood loss-patient will be placed in observation status on PCU, she will receive packed red blood cells, CBC will be monitored, she will be seen in consultation by GI, the plan is for her to undergo an EGD tomorrow. CTA of the abdomen and pelvis today showed focal wall thickening of the antrum of the stomach, there is also noted to be paraesophageal varices, splenic varices, ascites, and abnormalities of the liver consistent with cirrhosis. #2 liver cirrhosis secondary to WILHELM-patient follows up with Dr. Saini as an outpatient, she will remain on her present medications. #3 Pancytopenia secondary to chronic cirrhosis-labs will be monitored Have reviewed Marilyn Greenjayesh's history and physical including her medical assessment and plan of care and with the above additions endorse it. Total clinical time spent by myself addressing the patient's medical issues, reviewing the data, and collaborating with the patient's care team: 42 minutes Visit Charges OBSV E&M: [id number] Initial observation care L3
--- NOTE | 2021-10-07 14:58 | EDS_ITS ---
HPI History of Present Illness Chief Complaint: Abn Labs Informant: patient Narrative Narrative: 61-year-old female presenting with a chief complaint of abnormal hemoglobin. Patient has history of nonalcoholic cirrhosis with esophageal varices. She is being referred for TIPS procedure. Patient was noted by gastroenterology today to have a hemoglobin of 5.8. Patient denies any syncope. She notes that she is chronically short of breath. She sees Dr. Saini for GI. [facility] Medical History Acute on chronic anemia Anemia Anxiety Asthma Cirrhosis Decompensation of cirrhosis of liver Depression Diabetes Former smoker GERD (gastroesophageal reflux disease) GI bleed GI bleeding Pancytopenia Seizures Severe anemia Stroke/cerebrovascular accident Thrombocytopenia Home Medications albuterol sulfate 2.5 mg inhalation Q4H PRN PRN wheezing/shortness of breath 08/19/21 [History Last Taken 2 Days Ago ~09/23/21] cholecalciferol (vitamin D3) 50 mcg (2,000 unit) tablet 50 mcg PO DAILY health maintenance 08/19/21 [History Last Taken 10/06/21] gabapentin 400 mg capsule 400 mg PO DAILY PAIN 08/19/21 [History Last Taken 10/07/21] lactulose 10 gram/15 mL oral solution 15 ml PO TID liver 08/19/21 [History Last Taken 09/24/21] loratadine 10 mg tablet 10 mg PO DAILY ALLERGIES 08/19/21 [History Last Taken 10/07/21] metformin 500 mg tablet 500 mg PO BREAKFAST diabetes 08/19/21 [History Last Taken 10/07/21] montelukast 10 mg tablet 10 mg PO DAILY health maintenance 08/19/21 [History Last Taken 10/06/21] nystatin 100,000 unit/gram topical powder (Nyamyc) 1 applic topical 4X/DAY PRN PRN yeast/excoriated areas 08/19/21 [History Last Taken 10/07/21] sertraline 100 mg tablet 200 mg PO QHS mood 08/19/21 [History Last Taken 10/06/21] simvastatin 40 mg tablet 40 mg PO QHS cholesterol 08/19/21 [History Last Taken 10/06/21] albuterol sulfate 90 mcg/actuation aerosol inhaler (Ventolin HFA) 2 inh inhalation Q4H PRN SOB 09/25/21 [History Last Taken 10/07/21] ascorbic acid (vitamin C) 500 mg tablet 500 mg PO BID #60 tabs 09/28/21 [Rx Last Taken 10/07/21] carvedilol 3.125 mg tablet 6.25 mg PO BID BP #0 tabs 09/28/21 [Rx Last Taken 10/07/21] furosemide 40 mg tablet 40 mg PO DAILY #30 tabs 09/28/21 [Rx Last Taken 10/07/21] omeprazole 40 mg capsule,delayed release 40 mg PO BID stomach #60 caps 09/28/21 [Rx Last Taken 10/07/21] spironolactone 50 mg tablet 100 mg PO DAILY FLUID 10/07/21 [History Last Taken 10/07/21] Allergy/AdvReac Type Severity Reaction Status Date / Time No Known Allergies Allergy Verified 10/07/21 12:05 Social History Smoking Status: Former smoker ROS ROS ED Constitutional Constitutional ED: Denies chills or weight loss Eyes Eyes: Denies change in vision or diplopia ENT ENT ED: Denies ear pain, rhinorrhea or sore throat Cardiovascular Cardiovascular: Denies chest pain, orthopnea, palpitations or racing heartbeat Respiratory/Chest Respiratory/Chest: Reports dyspnea; Denies cough or orthopnea Gastrointestinal Gastrointestinal: Denies abdominal pain, diarrhea, nausea or vomiting Genitourinary Genitourinary ED: Denies dysuria, hematuria or urinary frequency Musculoskeletal Musculoskeletal: Denies arthralgias or myalgias Integumentary Denies abscess or rash Neurologic Neurologic: Denies headache(s) or weakness Psychiatric Psychiatric: Denies anxiety, depression, suicidal ideation or suicidal thoughts Endocrine Endocrinology: Denies polydipsia, polyphagia or polyuria Allergic/Immunologic Allergic/Immunologic ED: Denies mouth swelling, tongue swelling or urticaria EXAM Physical Exam Const Vital Signs: 10/07/21 12:05 10/07/21 12:21 10/07/21 13:36 Temperature 97.9 F 98.5 F Temperature Source Temporal Oral Pulse Rate 78 78 Respiratory Rate 16 20 H Respiratory Effort Normal Non-Labored Respiratory Pattern Normal Blood Pressure 94/47 L 90/69 Blood Pressure Mean 62 76 Pulse Ox 97 96 Oxygen Delivery Method Room Air Room Air Positive well nourished and well developed General Appearance ED: well developed HEENT Reports normocephalic, head/scalp atraumatic and moist mucous membranes Eyes PERRL and EOMs intact bilaterally General Eye ED: Yes pale conjunctiva Neck no lymphadenopathy, supple and no JVD Resp normal respiratory effort and clear to auscultation bilaterally Cardio regular rate, regular rhythm and no murmurs GI normal to inspection, nondistended, normoactive bowel sounds and non-tender Palpation: soft Back/Spine no CVA tenderness and normal ROM Extremity normal to inspection General Extremety ED: Negative for edema General Extremity: Negative for edema Neuro oriented x3 and CN's II-XII intact bilaterally Sensorium / Orientation: alert Motor Exam: strength 5/5 throughout Psych mental status grossly normal Mood & Affect: Negative for depressed or tearful Skin no rashes or lesions noted and no wounds MDM MDM MDM Narrative Medical decision making narrative: Nursing confirmed hemoglobin of 5.7. BUN of 43 with creatinine 1.05. She is O+. Plan is admission into the hospital. Lab Data Attestation: I reviewed the patient's lab results. Labs: Laboratory Results - last 24 hr 10/07/21 10/07/21 10/07/21 12:42 12:42 12:42 WBC 3.1 L RBC 1.91 L Hgb 5.7 L* Hct 18.7 L MCV 97.9 MCH 29.8 MCHC 30.5 L RDW Std Deviation 65.6 H RDW Coeff of Saundra 19.9 H Plt Count 64 L MPV 12.3 H Immature Gran % (Auto) 0.600 Neut % (Auto) 59.0 Lymph % (Auto) 24.6 [place] % (Auto) 11.3 H Eos % (Auto) 4.2 Baso % (Auto) 0.3 Absolute Neuts (auto) 1.8 L Absolute Lymphs (auto) 0.76 L Nucleated RBC % 0 Diff Path Review May foll Platelet Estimate MOD DEC RBC Morphology N CHROM Anisocytosis 1+ Sodium 140 Potassium 4.5 Chloride 109 H Carbon Dioxide 25.0 Anion Gap 6 BUN 43 H Creatinine 1.05 H Estim Creat Clear Calc 43.37 Est GFR (MDRD) Af Amer 68 Est GFR (MDRD) Non-Af 56 L BUN/Creatinine Ratio 41.0 H Glucose 122 H Calcium 8.5 Total Bilirubin 1.10 H AST 34 ALT 24 Alkaline Phosphatase 76 Total Protein 4.5 L Albumin 2.0 L Globulin 2.5 Albumin/Globulin Ratio 0.8 L Blood Type O POSITIVE Antibody Screen NEGATIVE Crossmatch See Detail Discharge Plan Dx/Rx/DC Orders Clinical Impression: Cirrhosis, GI bleeding, Anemia requiring transfusions Disposition Disposition: Acute Care Hospital [facility]
--- NOTE | 2021-10-07 16:26 | CON.PCM_ITS ---
Assessment & Plan Assessment/Plan (1) Cirrhosis: PLAN: At this time she has decompensated cirrhosis due to the fact that she is having recurrent GI bleeding. She is not showing any signs of encephalopathy. I will check an ammonia level. Her current meld ranges from 8-10. She has no history of alcohol. She is not showing any gross signs of ascites although was mentioned on the CT scan. I will give her 10 mg of vitamin K due to her elevated INR of 1.5. (2) GI bleeding: PLAN: I suspect that she is bleeding from the same source as there is no sign of bleeding at this time. We will perform an upper endoscopy tomorrow to evaluate her upper GI tract. I am still recommending TIPS procedure for her as a treatment for recurrent GI bleeding secondary to portal gastropathy. I will also put on an octreotide drip and PPI drip at this time. N.p.o. past midnight. HPI Consult Data Date of Consult: 10/07/21 Attending Care Provider: GI bleed HPI Narrative Reason for Consultation: GI bleed, Cirrhosis HPI Narrative: AMAURY MOORE, is a 61 F who presents as an outpatient after being discovered to have a low hemoglobin. Her hemoglobin generally runs between 9 and 10. Her hemoglobin today was 5.8. They rechecked it and it was 5.7. She has a past medical history of nonalcoholic steatohepatitis resulting in cirrhosis complicated by esophageal varices, ascites and recurrent GI bleeding. She also has a history of ascites but has not needed paracentesis. She has been in the hospital multiple times for recurrent GI bleeding secondary to portal hypertension associated with telangiectasias and AV malformations resulting in bleeding in her upper GI tract. She underwent a capsule endoscopy and it did show some irritation with a possible duodenal varix. She underwent a CT angio today due to her decrease in hemoglobin and it showed recannulation of the umbilical vein, esophageal and gastric varices consistent with portal hypertension. She denies seeing any blood. She does not take any blood thinners. She is not on iron. Today she reports she is very tired, poor energy, no significant changes. Legs and feet are itchy, she attributes to swelling; has chronic LE edema L>R, wears compression hose. No generalized pruritus. BM 1-2x per day, soft stools, takes lactulose once a day usually, gets urgent diarrhea if she takes it more than that. No confusion. Difficulty sleeping last few days due to eviction from her home of 20 yrs, moving to [place]. No relief of lower abd cramping with dicyclomine, doesn't want another med to try for that. [facility] Medical History Acute on chronic anemia Anemia Anxiety Asthma Cirrhosis Decompensation of cirrhosis of liver Depression Diabetes Former smoker GERD (gastroesophageal reflux disease) GI bleed GI bleeding Pancytopenia Seizures Severe anemia Stroke/cerebrovascular accident Thrombocytopenia Home Medications albuterol sulfate 2.5 mg inhalation Q4H PRN PRN wheezing/shortness of breath 08/19/21 [History Last Taken 2 Days Ago ~09/23/21] cholecalciferol (vitamin D3) 50 mcg (2,000 unit) tablet 50 mcg PO DAILY health maintenance 08/19/21 [History Last Taken 10/06/21] gabapentin 400 mg capsule 400 mg PO DAILY PAIN 08/19/21 [History Last Taken 10/07/21] lactulose 10 gram/15 mL oral solution 15 ml PO TID liver 08/19/21 [History Last Taken 09/24/21] loratadine 10 mg tablet 10 mg PO DAILY ALLERGIES 08/19/21 [History Last Taken 10/07/21] metformin 500 mg tablet 500 mg PO BREAKFAST diabetes 08/19/21 [History Last Taken 10/07/21] montelukast 10 mg tablet 10 mg PO DAILY health maintenance 08/19/21 [History Last Taken 10/06/21] nystatin 100,000 unit/gram topical powder (Nyamyc) 1 applic topical 4X/DAY PRN PRN yeast/excoriated areas 08/19/21 [History Last Taken 10/07/21] sertraline 100 mg tablet 200 mg PO QHS mood 08/19/21 [History Last Taken 10/06/21] simvastatin 40 mg tablet 40 mg PO QHS cholesterol 08/19/21 [History Last Taken 10/06/21] albuterol sulfate 90 mcg/actuation aerosol inhaler (Ventolin HFA) 2 inh inhalation Q4H PRN SOB 09/25/21 [History Last Taken 10/07/21] ascorbic acid (vitamin C) 500 mg tablet 500 mg PO BID #60 tabs 09/28/21 [Rx Last Taken 10/07/21] carvedilol 3.125 mg tablet 6.25 mg PO BID BP #0 tabs 09/28/21 [Rx Last Taken 10/07/21] furosemide 40 mg tablet 40 mg PO DAILY #30 tabs 09/28/21 [Rx Last Taken 10/07/21] omeprazole 40 mg capsule,delayed release 40 mg PO BID stomach #60 caps 09/28/21 [Rx Last Taken 10/07/21] spironolactone 50 mg tablet 100 mg PO DAILY FLUID 10/07/21 [History Last Taken 10/07/21] Allergy/AdvReac Type Severity Reaction Status Date / Time No Known Allergies Allergy Verified 10/07/21 12:05 Social History Smoking Status: Former smoker ROS Constitutional Constitutional: Reports fatigue Cardiovascular Cardiovascular: Reports edema; Denies chest pain, palpitations or syncope Respiratory/Chest Respiratory/Chest: Denies cough, shortness of breath at rest, shortness of breath with exertion or wheezing Gastrointestinal Gastrointestinal: Denies abdominal pain, constipation, diarrhea, nausea or vomiting Genitourinary Genitourinary: Denies dysuria Musculoskeletal Musculoskeletal: Denies back pain, extremity pain, joint pain, joint stiffness or joint swelling Integumentary Integumentary: Denies dry skin Neurologic Neurologic: Denies abnormal gait, abnormal speech, confusion or dizziness Psychiatric Psychiatric: Denies anxiety or depression Endocrine Endocrinology: Denies change in body appearance Hematologic/Lymphatic Hematologic/Lymphatic: Reports anemia Physical Exam Const oriented x3 Orientation / Consciousness: lethargic HEENT normocephalic and head/scalp atraumatic Eyes conjunctivae normal and no scleral icterus Neck no lymphadenopathy and supple General: trachea midline Resp normal respiratory effort, normal air movement and clear to auscultation bilat erally Cardio regular rhythm, S1 normal heart sound, S2 normal heart sound and peripheral pulses 2+ throughout GI soft to palpation and non-tender Extremity normal capillary refill General Extremity: Negative for clubbing or cyanosis Skin General Skin Exam: dry skin Lesions: no lesions Rashes: no rashes Neuro no focal motor deficits and no sensory deficits noted Speech: speech normal Motor Exam: general weakness Psych cooperative and affect normal Lab / Micro Data Result Diagrams: 10/07/21 12:42 10/07/21 12:42 Labs: Laboratory Results - last 24 hr 10/07/21 12:42: WBC 3.1 L, RBC 1.91 L, Hgb 5.7 L*, Hct 18.7 L, MCV 97.9, MCH 29.8, MCHC 30.5 L, RDW Std Deviation 65.6 H, RDW Coeff of Saundra 19.9 H, Plt Count 64 L, MPV 12.3 H, Immature Gran % (Auto) 0.600, Neut % (Auto) 59.0, Lymph % (Auto) 24.6, [place] % (Auto) 11.3 H, Eos % (Auto) 4.2, Baso % (Auto) 0.3, Absolute Neuts (auto) 1.8 L, Absolute Lymphs (auto) 0.76 L, Nucleated RBC % 0, Diff Path Review August, Platelet Estimate MOD DEC, RBC Morphology N CHROM, Anisocytosis 1+ 10/07/21 12:42: Sodium 140, Potassium 4.5, Chloride 109 H, Carbon Dioxide 25.0, Anion Gap 6, BUN 43 H, Creatinine 1.05 H, Estim Creat Clear Calc 43.37, Est GFR (MDRD) Af Amer 68, Est GFR (MDRD) Non-Af 56 L, BUN/Creatinine Ratio 41.0 H, Glucose 122 H, Calcium 8.5, Total Bilirubin 1.10 H, AST 34, ALT 24, Alkaline Phosphatase 76, Total Protein 4.5 L, Albumin 2.0 L, Globulin 2.5, Albumin/Globulin Ratio 0.8 L 10/07/21 12:42: Blood Type O POSITIVE, Antibody Screen NEGATIVE, Crossmatch See Detail Radiology Impression Abdomen/Pelvis CTA 10/07/21 13:56 IMPRESSION: 1. There is a diffuse contour abnormality of the liver consistent with cirrhotic changes. 2. Ascites. 3. Paraesophageal varices. Splenic varices. Recanalization of the umbilical vein. Findings suggest portal hypertension. 4. The gallbladder is contracted. There is a solitary gallstone. 5. There is mild splenomegaly. 6. Focal wall thickening of the antrum of stomach. This can suggest a gastritis. Electronically Signed: Williams Weston MD at 15:39 EDT , Charges/Coding Visit Charges Inpatient E&M: 44237 Init Hosp L2
[2021-10-07] MEDS: Ceftriaxone 1 GM/50 ML BAG IV (17:05)
[2021-10-07 17:10] LABS: Bedside Glucose 111 mg/dL (74-106)
[2021-10-07] MEDS: Furosemide 40 MG/4 ML Vial IV (17:21)
[2021-10-07 22:31] LABS: Hematocrit 24.3 % (37-47); Hemoglobin 7.6 g/dL (12.0-15.0); POSITIVE COUNT YES
[2021-10-07] MEDS: Lactulose 20 GM/30 ML UDC 10 GM PO (22:32)
[2021-10-07] MEDS: Sertraline 100 MG Tablet 200 MG PO (22:35)
[2021-10-07] MEDS: Pantoprazole Sodium 40 MG Tablet PO (22:36)
[2021-10-08] VITALS (20 sets, daily range): BP systolic 105–141; BP diastolic 32–78; PULSE 78–94; RESP 14–20; TEMP 36.4–37.3; O2SAT 90–99
[2021-10-08 01:20] LABS: Bedside Glucose 154 mg/dL (74-106)
[2021-10-08 06:22] LABS: Absolute Lymphocyte Count 0.71 X10^3/uL (0.83-4.51); Absolute Neutrophil Count 1.5 X10^3/uL (2.0-7.7); Basophil# 0.01 X10^3/uL; Basophil% 0.4 % (0-1); Eosinophils% 3.8 % (0-5); Hematocrit 21.3 % (37-47); Hemoglobin 6.5 g/dL (12.0-15.0); Lymphocyte # 0.71 X10^3/ul (0.83-4.51); Lymphocyte % 27.3 % (19-41); Mean Corp Hgb Conc 30.5 g/dL (32-36); Mean Corpuscular Hgb 28.5 pg (27.0-32.0); Mean Corpuscular Volume 93.4 fL (81-99); Mean Platelet Vol. 11.8 fl (6.2-12.0); Monocyte# 0.26 X10^3/uL; NRBC Flagged by Analyzer 0 % (0-5); Neutrophil % 57.7 % (47-70); POSITIVE COUNT YES; POSITIVE MORPHOLOGY YES; RBC Distribution Width CV 22.8 % (11.6-14.6); RBC Distribution Width SD 72.4 fl (35.1-43.9); Red Blood Count 2.28 M/mm3 (4.2-5.4); White Blood Count 2.6 K/mm3 (4.4-11.0)
[2021-10-08 06:28] LABS: Differential Indicated SCAN CRITERIA MET; Platelet Count 36 K/mm3 (150-450)
[2021-10-08 06:41] LABS: Bedside Glucose 122 mg/dL (74-106)
[2021-10-08 06:45] LABS: Differential Comment SCANNED
[2021-10-08 06:46] LABS: Anisocytosis 1+; Hypochromasia 1+; Macrocytosis RARE; Microcytosis RARE; Platelet Estimate MKD DEC (ADEQ); Polychromasia RARE
[2021-10-08 06:54] LABS: ALB/GLOB Ratio 0.9 RATIO (0.9-2.4); AST(SGOT) 34 U/L (15-37); Alanine Aminotransfer ALT/SGPT 22 U/L (13-56); Alkaline Phosphatase 73 U/L (45-117); Anion Gap 4 (5-15); BUN 46 mg/dL (7-18); BUN/Creat Ratio 38.7 RATIO (10-20); Calcium,Total 8.4 mg/dL (8.5-10.1); Chloride 108 mmol/L (98-107); Creatinine, Serum 1.19 mg/dL (0.55-1.02); EST Glomerular Filtration Rate 49 mL/min (>60); Est Glom Filt Rate - Afr Amer 59 mL/min (>60); Estimated Creatinine Clearance 38.27 ml/min; Globulin 2.3 g/dL (2.2-4.2); Glucose 122 mg/dL (74-106); Potassium 4.6 mmol/L (3.5-5.1); Protein, Total 4.3 g/dL (6.4-8.2); Sodium Level 140 mmol/L (136-145)
[2021-10-08] MEDS: 0.9% Normal Saline (Pres. free 10 ML Vial ×2 (08:55→09:01)
[2021-10-08] MEDS: Epinephrine (1 mg/ml) 1 MG/ML VIAL ×2 (08:57→09:00)
--- NOTE | 2021-10-08 09:42 | OP.EGD_ITS ---
Patient Name: Rosi Thornton Procedure Date: 10/08/2021 8:15 AM Date of : 1960 Age: 61 Procedure: Upper GI endoscopy Indications: Melena Providers: Arturo Saini DO Medicines: Monitored Anesthesia Care Patient Profile: This is a 61 year old female. Refer to note in patient chart for documentation of history and physical. Patient has symptoms. She is status post EGD for treatment of bleeding within the past three months. Complications: No immediate complications. Procedure: Pre-Anesthesia Assessment: - Prior to the procedure, a History and Physical was performed, and patient medications and allergies were reviewed. The patient is competent. The risks and benefits of the procedure and the sedation options and risks were discussed with the patient. All questions were answered and informed consent was obtained. Patient identification and proposed procedure were verified by the physician in the pre-procedure area. Mental Status Examination: alert and oriented. Airway Examination: normal oropharyngeal airway and neck mobility. Respiratory Examination: clear to auscultation. CV Examination: normal. Prophylactic Antibiotics: The patient does not require prophylactic antibiotics. Prior Anticoagulants: The patient has taken no previous anticoagulant or antiplatelet agents. ASA Grade Assessment: II - A patient with mild systemic disease. After reviewing the risks and benefits, the patient was deemed in satisfactory condition to undergo the procedure. The anesthesia plan was to use moderate sedation / analgesia (conscious sedation). Immediately prior to administration of medications, the patient was re-assessed for adequacy to receive sedatives. The heart rate, respiratory rate, oxygen saturations, blood pressure, adequacy of pulmonary ventilation, and response to care were monitored throughout the procedure. The physical status of the patient was re-assessed after the procedure. After obtaining informed consent, the endoscope was passed under direct vision. Throughout the procedure, the patient's blood pressure, pulse, and oxygen saturations were monitored continuously. The gastroscope was introduced through the mouth, and advanced to the second part of duodenum. The upper GI endoscopy was accomplished without difficulty. The patient tolerated the procedure well. Scope In: 8:30:19 AM Scope Out: 9:06:54 AM Total Procedure Duration Time 0 hours 36 minutes 35 seconds Findings: The examined esophagus was normal. Red blood was found in the gastric antrum. Multiple 5 mm bleeding angioectasias were found in the gastric antrum, in the prepyloric region of the stomach and at the pylorus. Area was successfully injected with 5 mL of a 1:10,000 solution of epinephrine for hemostasis. Coagulation for hemostasis using heater probe was successful. Estimated blood loss was minimal. The second portion of the duodenum was normal. Impression: - Normal esophagus. - Red blood in the gastric antrum. - Multiple bleeding angioectasias in the stomach. Injected. Treated with a heater probe. - Normal second portion of the duodenum. - No specimens collected. Recommendation: - [facility] patient [facility]. - Resume previous diet. - Continue present medications. Procedure Code(s): --- Professional --- 81827, Esophagogastroduodenoscopy, flexible, transoral; with control of bleeding, any method CPT copyright 2017 [employer]. All rights reserved. The codes documented in this report are preliminary and upon service attendant cafeteria review may be revised to meet current compliance requirements. Arturo Saini DO 10/08/2021 9:42:32 AM This report has been signed electronically. Number of Addenda: 1 Note Initiated On: 10/08/2021 8:15 AM Addendum Number: 1 Addendum Date: 01/20/2022 6:08:44 AM MAC was used as sedation for this procedure. Arturo Saini DO 01/20/2022 6:08:48 AM This report has been signed electronically.
--- NOTE | 2021-10-08 09:43 | OP.CCLET_ITS ---
01/20/2022 Maxwell Lares [address] [place] [address] Re : Upper GI endoscopy procedure for Rosi Thornton Dear Dr. Lares This procedure was performed on Friday, October 08, 2021. My impressions and recommendations are as follows: Impressions : - Normal esophagus. - Red blood in the gastric antrum. - Multiple bleeding angioectasias in the stomach. Injected. Treated with a heater probe. - Normal second portion of the duodenum. - No specimens collected. Recommendations : - Return patient to [facility] care. - Resume previous diet. - Continue present medications. My findings are described in the full procedure note, which is enclosed. If I can be of further assistance, please feel free to contact me at . Sincerely, Arturo Saini, 10/08/2021 9:42:32 AM This report has been signed electronically.
--- NOTE | 2021-10-08 10:45 | PN.HOSP_ITS ---
Documented by User: WHITNEY Dial 10/08/21 10:48 Subjective Subjective Patient seen and examined. Patient returned from EGD. Objective Data Objective Data Vital Signs: Vital Signs Temp Pulse Resp BP Pulse Ox 97.5 F L 87 14 135/51 H 90 10/08/21 10:17 10/08/21 10:17 10/08/21 10:17 10/08/21 10:17 10/08/21 10:17 Oxygen Flow Rate (L/min) 2 Oxygen Delivery Method Nasal Cannula Weight: 208 lb 8.917 oz Body Mass Index (BMI) 38.1 Intake & Output: Intake and Output for Last 24 Hours 10/06/21 10/07/21 10/08/21 23:59 23:59 23:59 Intake Total 1301 / 1301 Output Total 100 / 100 Balance 1301 / 1201 -100 / -100 Lab / Micro Data Result Diagrams: 10/08/21 05:20 10/08/21 05:20 Labs: Laboratory Results - last 24 hr 10/07/21 12:42: WBC 3.1 L, RBC 1.91 L, Hgb 5.7 L*, Hct 18.7 L, MCV 97.9, MCH 29 .8, MCHC 30.5 L, RDW Std Deviation 65.6 H, RDW Coeff of Saundra 19.9 H, Plt Count 64 L, MPV 12.3 H, Immature Gran % (Auto) 0.600, Neut % (Auto) 59.0, Lymph % (Auto) 24.6, [place] % (Auto) 11.3 H, Eos % (Auto) 4.2, Baso % (Auto) 0.3, Absolute Neuts (auto) 1.8 L, Absolute Lymphs (auto) 0.76 L, Nucleated RBC % 0, Diff Path Review May foll, Platelet Estimate MOD DEC, RBC Morphology N CHROM, Anisocytosis 1+ 10/07/21 12:42: Sodium 140, Potassium 4.5, Chloride 109 H, Carbon Dioxide 25.0, Anion Gap 6, BUN 43 H, Creatinine 1.05 H, Estim Creat Clear Calc 43.37, Est GFR (MDRD) Af Amer 68, Est GFR (MDRD) Non-Af 56 L, BUN/Creatinine Ratio 41.0 H, Glucose 122 H, Calcium 8.5, Total Bilirubin 1.10 H, AST 34, ALT 24, Alkaline Phosphatase 76, Total Protein 4.5 L, Albumin 2.0 L, Globulin 2.5, Albumin/Globulin Ratio 0.8 L 10/07/21 12:42: Blood Type O POSITIVE, Antibody Screen NEGATIVE, Crossmatch See Detail 10/07/21 12:42: Crossmatch See Detail 10/07/21 16:09: POC Glucose 111 H 10/07/21 22:20: Hgb 7.6 L, Hct 24.3 L 10/07/21 22:31: POC Glucose 154 H 10/08/21 05:20: WBC 2.6 L, RBC 2.28 L, Hgb 6.5 L, Hct 21.3 L, MCV 93.4, MCH 28.5, MCHC 30.5 L, RDW Std Deviation 72.4 H, RDW Coeff of Saundra 22.8 H, Plt Count 36 L*, MPV 11.8, Immature Gran % (Auto) 0.800, Neut % (Auto) 57.7, Lymph % (Auto) 27.3, [place] % (Auto) 10.0, Eos % (Auto) 3.8, Baso % (Auto) 0.4, Absolute Neuts (auto) 1.5 L, Absolute Lymphs (auto) 0.71 L, Nucleated RBC % 0, Differential Comment SCANNED, Diff Path Review August, Platelet Estimate MKD DEC, Polychromasia RARE, Hypochromasia 1+, Anisocytosis 1+, Microcytosis RARE, Macrocytosis RARE 10/08/21 05:20: Sodium 140, Potassium 4.6, Chloride 108 H, Carbon Dioxide 28.0, Anion Gap 4 L, BUN 46 H, Creatinine 1.19 H, Estim Creat Clear Calc 38.27, Est GFR (MDRD) Af Amer 59 L, Est GFR (MDRD) Non-Af 49 L, BUN/Creatinine Ratio 38.7 H , Glucose 122 H, Calcium 8.4 L, Total Bilirubin 1.30 H, AST 34, ALT 22, Alkaline Phosphatase 73, Total Protein 4.3 L, Albumin 2.0 L, Globulin 2.3, Albumin/Globulin Ratio 0.9 10/08/21 06:31: POC Glucose 122 H Radiography Diagnostic Testing: Radiology Impression Abdomen/Pelvis CTA 10/07/21 13:56 IMPRESSION: 1. There is a diffuse contour abnormality of the liver consistent with cirrhotic changes. 2. Ascites. 3. Paraesophageal varices. Splenic varices. Recanalization of the umbilical vein. Findings suggest portal hypertension. 4. The gallbladder is contracted. There is a solitary gallstone. 5. There is mild splenomegaly. 6. Focal wall thickening of the antrum of stomach. This can suggest a gastritis. Electronically Signed: Williams Weston MD at 15:39 EDT , Physical Exam Const oriented x3 Orientation / Consciousness: lethargic HEENT normocephalic and head/scalp atraumatic Eyes conjunctivae normal and no scleral icterus Neck no lymphadenopathy and supple General: trachea midline Resp normal respiratory effort, normal air movement and clear to auscultation bilaterally Cardio regular rhythm, S1 normal heart sound, S2 normal heart sound and peripheral p ulses 2+ throughout GI soft to palpation and non-tender Extremity normal capillary refill General Extremity: Negative for clubbing or cyanosis Skin General Skin Exam: dry skin Lesions: no lesions Rashes: no rashes Neuro no focal motor deficits and no sensory deficits noted Speech: speech normal Motor Exam: general weakness Psych cooperative and affect normal Assessment & Plan Assessment/Plan (1) Anemia requiring transfusions: (2) GI bleeding: PLAN: Plan 1. Acute on chronic blood loss anemia secondary to chronic GI bleeding -Packed red blood cells x2 given overnight, hemoglobin 6.5 PRBCs x2 ordered -Patient is known to Dr. Saini and this is an acute on chronic issue -Patient underwent EGD 09/26/2021 which showed multiple AVMs which were treated with heater probe. -EGD 10/08/[address] Saini demonstrates red blood in gastric antrum, multiple bleeding angioectasias in the stomach which were injected and treated with a heater probe. -Clear liquids ordered 2. Cirrhosis -Continue lactulose, furosemide, spironolactone -Patient referred to [facility] for TIPS procedure -Cirrhosis has been stable 3. Diabetes mellitus type 2 -Hold Metformin -ACHS blood sugar check with SSI DVT prophylaxis-SCDs This patient was seen by WHITNEY Dial under the supervision of Dr. Giraldo. 13 minutes spent in clinical coordination of patient's plan of care. Documented by User: Dr. Brenden Giraldo, 10/08/21 12:13 Objective Data Lab / Micro Data Result Diagrams: 10/08/21 05:20 10/08/21 05:20 Assessment & Plan Assessment/Plan (1) Anemia requiring transfusions: (2) GI bleeding: Charges/Coding Addendum Addendum: Patient was seen and examined today independently of Marilyn Richard, her hemoglobin this morning was low again at 6.5. Patient will be transfused with 2 units of packed red blood cells today, patient also received a unit of platelets today that was ordered overnight. Patient's EGD today showed multiple bleeding areas in the stomach, I talked with her sister who was in the room at the time of my exam today, patient has been having some mild confusion according to the sister and I explained that this may be secondary to her GI bleed and resulting problems getting rid of the blood through her liver metabolism. On examination she appeared her stated age, she does not appear to be in any distress. Vital signs as documented. Skin warm and dry and without overt rashes. Neck without JVD, thyroid appears normal, trachea is midline, neck is supple. Lungs clear, normal air movement was noted. Heart exam notable for regular rhythm, normal sounds and absence of murmurs, rubs or gallops. Abdomen unremarkable and without evidence of organomegaly, masses, or abdominal aortic enlargement, bowel sounds are present in all 4 quadrants, no abdominal tenderness was noted. Extremities nonedematous, no cyanosis was noted, no clubbing was noted. Neuro: Cranial nerves II through XII are grossly intact, no focal motor deficits were noted, sensation to light touch and pinprick is intact, motor exam 5/5 throughout. Psych: Patient is alert and oriented x3, she does not appear anxious or depressed, she does not appear agitated. #1 acute on chronic anemia secondary to GI blood loss from gastric hemorrhage-patient will be transfused 2 more units of packed red blood cells, CBC will be monitored #2 liver cirrhosis secondary to WILHELM-patient follows up with Dr. Saini as an outpatient, she will remain on her present medications. #3 Pancytopenia secondary to chronic cirrhosis-labs will be monitored I have reviewed Marilyn Richard's progress note including her medical assessment and plan of care and with the above additions endorse it. Total clinical time spent by myself addressing the patient's medical issues, reviewing the data, and collaborating with the patient's care team: 25 minutes ? g Vital Signs Vital Signs Vital Signs: ? 10/07/21 12:05 10/07/21 12:21 10/07/21 13:36 Temperature 97.9 F ?B 98.5 F Temperature Source Temporal ? Oral Pulse Rate 78 ? 78 Respiratory Rate 16 ? 20 H Respiratory Effort ? Normal Non-Labored ? Respiratory Pattern ? Normal ? Blood Pressure 94/47 L ? 90/69 Blood Pressure Mean 62 ? 76 Pulse Ox 97 ? 96 Oxygen Delivery Method Room Air ? Room Air Weight Weight: ? 203 lb? Body Mass Index (BMI) ? 37.1? Allergy/AdvReac Type Severity Reaction Status Date / Time No Known Allergies Allergy ? ? Verified 10/07/21 12:05 10/07/21 12:42? 10/07/21 12:42? Visit Charges OBSV E&M: 22528 Subsequent observation care L3
--- NOTE | 2021-10-08 11:04 | NURSING ---
updated sister with results of egd
[2021-10-08] MEDS: Gabapentin 400 MG Capsule PO (11:38)
[2021-10-08] MEDS: Spironolactone 50 MG Tablet 150 MG PO (11:39)
[2021-10-08] MEDS: Carvedilol 6.25 MG Tablet PO ×2 (11:40→22:12)
[2021-10-08] MEDS: Pantoprazole Sodium 40 MG Tablet PO ×2 (11:40→22:12)
[2021-10-08] MEDS: Ceftriaxone 1 GM/50 ML BAG IV (11:41)
[2021-10-08 12:37] LABS: Pathologist Review Reviewed
[2021-10-08 12:38] LABS: Pathologist Review Reviewed
--- NOTE | 2021-10-08 14:25 | CASEMGMT ---
CHARISSA WILSON assessment: Face to Face with patient for initial transition planning/care coordination assessment. RN KATIE introduced self and role at [facility], pt voices understanding and consents to assessment. Pt is sitting up in bed in no distress on 2L nc. Pt is A/Ox4 and answers questions appropriately but does fall back to sleep when not stimulated verbally.? Care providers, pharmacy,?and demographics verified. ? Presentation: Pt with 5.8 hgb on OP labs, c/o dizzy/SOB-hx cirrhosis Admitting dx: Acute on Chronic blood loss anemia PCP: Arnaud Specialists: Friend, GI Preferred Pharmacy: [facility] Insurance: [facility] Prescription Benefit:?[facility] Living Will/HPOA: Pt does not have LW/HPOA and declines AD info. LNOK: Magdalena Todd, sister; Brian Thornton, son Living Arrangements: Pt lives with boyfriend in 1 story apt with no steps and states no concerns at home. Pt states boyfriend assists with ADL's. Transportation: Pt states sister drives and states no transportation concerns. DME/HHC: Pt has a walker and w/c available and states no need for any further DME. Pt states no hx HHC or SNF in past. Pt declines need Pt states no concerns with going home at time of discharge. Pt is disabled. Pt states does not smoke cigarettes or drink ETOH. Pt voices no further concerns/needs. CM to follow for therapy notes and any further discharge planning/needs. Advised pt to ask for CM if any further questions/concerns/needs arise, voices understanding. Pt Goal: Home ? Plan[place] CHARISSA WILSON ?
[2021-10-08] MEDS: Insulin Lispro 100 UNIT/ML INSULN.PEN SC ×2 (15:34→22:11)
[2021-10-08] MEDS: Lactulose 20 GM/30 ML UDC 10 GM PO (15:38)
[2021-10-08 15:46] LABS: Bedside Glucose 172 mg/dL (74-106)
[2021-10-08] MEDS: Albuterol 2.5 MG/3 ML VIAL.NEB. INHALATION (17:06)
[2021-10-08 18:44] LABS: Hematocrit 23.1 % (37-47); Hemoglobin 7.2 g/dL (12.0-15.0)
[2021-10-08] MEDS: Sertraline 100 MG Tablet 200 MG PO (22:13)
[2021-10-08 22:36] LABS: Bedside Glucose 150 mg/dL (74-106)
[2021-10-09] VITALS (15 sets, daily range): BP systolic 97–118; BP diastolic 28–54; PULSE 65–79; RESP 16–18; TEMP 36.1–36.7; O2SAT 95–99
[2021-10-09] MEDS: 0.9% Saline Lock 10 ML Syringe IV ×3 (04:12→10:41)
[2021-10-09] MEDS: Insulin Lispro 100 UNIT/ML INSULN.PEN SC (06:38)
[2021-10-09 07:05] LABS: Bedside Glucose 150 mg/dL (74-106)
[2021-10-09 07:10] LABS: Absolute Lymphocyte Count 0.67 X10^3/uL (0.83-4.51); Absolute Neutrophil Count 3.1 X10^3/uL (2.0-7.7); Basophil# 0.01 X10^3/uL; Basophil% 0.2 % (0-1); Eosinophil# 0.13 X10^3/uL; Hematocrit 24.1 % (37-47); Hemoglobin 7.6 g/dL (12.0-15.0); Lymphocyte # 0.67 X10^3/ul (0.83-4.51); Lymphocyte % 15.5 % (19-41); Mean Corp Hgb Conc 31.5 g/dL (32-36); Mean Corpuscular Hgb 29.6 pg (27.0-32.0); Mean Corpuscular Volume 93.8 fL (81-99); Mean Platelet Vol. 13.1 fl (6.2-12.0); Monocyte% 9.2 % (0-10); NRBC Flagged by Analyzer 0 % (0-5); Neutrophil % 71.6 % (47-70); POSITIVE COUNT YES; POSITIVE MORPHOLOGY YES; Platelet Count 60 K/mm3 (150-450); RBC Distribution Width CV 21.6 % (11.6-14.6); RBC Distribution Width SD 66.4 fl (35.1-43.9); Red Blood Count 2.57 M/mm3 (4.2-5.4); White Blood Count 4.3 K/mm3 (4.4-11.0)
[2021-10-09 07:11] LABS: Differential Indicated SCAN CRITERIA MET
[2021-10-09 07:32] LABS: Anisocytosis 1+; Platelet Estimate MKD DEC (ADEQ)
[2021-10-09 07:42] LABS: ALB/GLOB Ratio 0.8 RATIO (0.9-2.4); AST(SGOT) 37 U/L (15-37); Alanine Aminotransfer ALT/SGPT 25 U/L (13-56); Alkaline Phosphatase 59 U/L (45-117); Anion Gap 7 (5-15); BUN 40 mg/dL (7-18); BUN/Creat Ratio 41.5 RATIO (10-20); Calcium,Total 8.1 mg/dL (8.5-10.1); Chloride 105 mmol/L (98-107); Creatinine, Serum 0.96 mg/dL (0.55-1.02); EST Glomerular Filtration Rate 62 mL/min (>60); Est Glom Filt Rate - Afr Amer 75 mL/min (>60); Estimated Creatinine Clearance 47.44 ml/min; Globulin 2.4 g/dL (2.2-4.2); Glucose 161 mg/dL (74-106); Potassium 4.1 mmol/L (3.5-5.1); Protein, Total 4.4 g/dL (6.4-8.2); Sodium Level 137 mmol/L (136-145)
[2021-10-09] MEDS: Gabapentin 400 MG Capsule PO (08:12)
[2021-10-09] MEDS: Acetaminophen 325 MG Tablet 650 MG PO (08:31)
--- NOTE | 2021-10-09 09:28 | CASEMGMT ---
SW spoke with patient and her sister. Introduced self and role at [facility]. Patient and her sister agreed to home health. SW provided a list of HH providers including quality and resource use data and consistent with the patient?s preferred geographic region, medical needs, and insurance network. Patient's sister chose [facility] home health and [place]. Patient was in agreement with this also. GREGORIA notified CHARISSA CROW
--- NOTE | 2021-10-09 09:31 | CASEMGMT ---
Addendum entered by Deneen Murphy 10/09/21 13:38: This RN CM has not received call from [facility] regarding referral. Pt/sister anxious to be discharged so referral also faxed to [facility]. Call to [facility] and they state they have no staffing and [facility] intake person is out of office until next week. Call to [facility] and intake states pt was declined but cannot tell this RN CM why or why they did not call to notify this RN CM. This RN CM to room to discuss with pt and pt states she knows she agreed to [facility] this am but does not feel she will need it at home as her sig other will help. Pt is agreeable for this RN CM to call and update sister, but pt states 'she is not my guardian and she does not make decisions for me.' Pt also declined OP script. Call to sister, Magdalena, and she is updated on all, voices understanding and is aware that PCP can set up further therapy for pt, if needed. Pt/sister voice no further questions/concerns/needs. Benita CARRINGTON CM Original Note: Per Neisha KINNEY, pt would like [facility] at discharge and preference for [facility] then [facility]. Order placed for SN, PT/OT and referral faxed to [facility]. Benita CARRINGTON CM
[2021-10-09] MEDS: Pantoprazole Sodium 40 MG Tablet PO (09:37)
[2021-10-09] MEDS: Ceftriaxone 1 GM/50 ML BAG IV (09:37)
[2021-10-09] MEDS: Spironolactone 50 MG Tablet 150 MG PO (10:40)
[2021-10-09] MEDS: Carvedilol 6.25 MG Tablet PO (10:40)
--- NOTE | 2021-10-09 10:49 | DCINST_ITS ---
Discharge Instructions Diet Discharge Diet: No restrictions Activity Discharge Activity: Return to Normal Activity Weight Bearing Status: Full weight bearing and - (Use walker if necessary) Follow Up Care Test Results: Test results from this visit will be discussed in further detail at your follow- up appointment, if applicable. Discharge Plan Admission Admit Date/Time: 10/07/21 13:45 Primary Reason for Your Visit: Upper GI bleed Attending Provider: Brenden Giraldo Primary Care Provider: Maxwell Lares Discharge Orders/Prescriptions Prescriptions: New sucralfate [Carafate] 1 gram tablet 1 g PO .QID Qty: 120 0RF Continued metformin 500 mg tablet 500 mg PO BREAKFAST Label Comments: take 1 tablet by mouth once daily with breakfast albuterol sulfate 2.5 mg /3 mL (0.083 %) solution for nebulization 2.5 mg inhalation Q4H PRN PRN (Reason: wheezing/shortness of breath) Label Comments: inhale contents of 1 vial ( 3 milliliters ) in nebulizer by mouth... (REFER TO PRESCRIPTION NOTES). gabapentin 400 mg capsule 400 mg PO DAILY Label Comments: take 1 capsule by mouth once daily sertraline 100 mg tablet 200 mg PO QHS Label Comments: take 2 tablets by mouth once daily simvastatin 40 mg tablet 40 mg PO QHS Label Comments: take 1 tablet by mouth at bedtime montelukast 10 mg tablet 10 mg PO DAILY Label Comments: take 1 tablet by mouth once daily nystatin [Nyamyc] 100,000 unit/gram powder 1 applic TOPICAL 4X/DAY PRN PRN (Reason: yeast/excoriated areas) Label Comments: apply to affected area four times a day if needed loratadine 10 mg tablet 10 mg PO DAILY Label Comments: take 1 tablet by mouth once daily if needed lactulose 10 gram/15 mL solution 15 ml PO TID Label Comments: take 15 milliliters by mouth three times a day cholecalciferol (vitamin D3) 50 mcg (2,000 unit) Tablet 50 mcg PO DAILY albuterol sulfate [Ventolin HFA] 90 mcg/actuation HFA aerosol inhaler 2 inh INHALATION Q4H PRN (Reason: SOB) Label Comments: INHALE 2 PUFFS BY MOUTH EVERY 4 HOURS NEEDED SHORTNESS OF BREATH /WHEEZING furosemide 40 mg Tablet 40 mg PO DAILY Qty: 30 2RF ascorbic acid (vitamin C) 500 mg tablet 500 mg PO BID Qty: 60 1RF omeprazole 40 mg capsule,delayed release(DR/EC) 40 mg PO BID Qty: 60 2RF Label Comments: take 1 capsule by mouth once daily Rx Instructions: At least for 8 weeks carvedilol 3.125 mg tablet 6.25 mg PO BID Qty: 0 0RF Label Comments: take 2 tablets by mouth twice a day spironolactone 50 mg tablet 100 mg PO DAILY Label Comments: take 3 tablets by mouth once daily Rx Instructions: Hold if potassium more than 5.0 Referrals / Follow Up: Arturo Saini DO [STAFF PHYSICIAN] - See Referral Note (In 2 weeks) Maxwell Lares MD [Primary Care Provider] - Within 1 Week (Get a repeat CBC done on Wednesday or Wednesday of next week) Disposition Disposition (needs filled in before D/C Order can be placed): Home Health Service
--- NOTE | 2021-10-09 11:06 | PCM.DC.SUM ---
Providers Date of Admission: 10/07/21 Date of Discharge: 10/09/21 Primary Care Physician: Dr. Maxwell Lares MD Reason For Visit: ACUTE ON CHRONIC BLOOD LOSS ANEMIA Diagnosis Discharge Diagnosis (1) Anemia requiring transfusions: Status: Acute Code(s): D64.9 - Anemia, unspecified (2) GI bleeding: Status: Acute Code(s): K92.2 - Gastrointestinal hemorrhage, unspecified Plan 1. Acute on chronic blood loss anemia secondary to acute on chronic chronic upper GI bleeding requiring multiple blood transfusions secondary to stomach angioectasias #2. 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 Diabetes mellitus type 2 #4 pancytopenia-secondary to chronic liver cirrhosis #5 stomach angioectasias Medications at Discharge Home Medications albuterol sulfate 2.5 mg inhalation Q4H PRN PRN wheezing/shortness of breath 08/19/21 cholecalciferol (vitamin D3) 50 mcg (2,000 unit) tablet 50 mcg PO DAILY health maintenance 08/19/21 gabapentin 400 mg capsule 400 mg PO DAILY PAIN 08/19/21 lactulose 10 gram/15 mL oral solution 15 ml PO TID liver 08/19/21 loratadine 10 mg tablet 10 mg PO DAILY ALLERGIES 08/19/21 metformin 500 mg tablet 500 mg PO BREAKFAST diabetes 08/19/21 montelukast 10 mg tablet 10 mg PO DAILY health maintenance 08/19/21 nystatin 100,000 unit/gram topical powder (Nyamyc) 1 applic topical 4X/DAY PRN PRN yeast/excoriated areas 08/19/21 sertraline 100 mg tablet 200 mg PO QHS mood 08/19/21 simvastatin 40 mg tablet 40 mg PO QHS cholesterol 08/19/21 albuterol sulfate 90 mcg/actuation aerosol inhaler (Ventolin HFA) 2 inh inhalation Q4H PRN SOB 09/25/21 ascorbic acid (vitamin C) 500 mg tablet 500 mg PO BID #60 tabs 09/28/21 carvedilol 3.125 mg tablet 6.25 mg PO BID BP #0 tabs 09/28/21 furosemide 40 mg tablet 40 mg PO DAILY #30 tabs 09/28/21 omeprazole 40 mg capsule,delayed release 40 mg PO BID stomach #60 caps 09/28/21 spironolactone 50 mg tablet 100 mg PO DAILY FLUID 10/07/21 sucralfate 1 gram tablet (Carafate) 1 g PO .QID #120 tabs 10/09/21 Hospital Course Operations None Procedures EGD Summary of Care Provided Minutes Spent on Discharge: 31 Hospital Course: This 61-year-old white female was seen in the emergency room at [facility] after being sent in by her tread cutter due to abnormal outpatient labs. Patient's hemoglobin was 5.8. Labs obtained in the ER showed a white blood cell count of 3.1 and hemoglobin of 5.7. Patient's platelet count was 64,000. BUN was elevated at 43. Patient was placed in observation status on PCU initially, she was seen by gastroenterology who performed an EGD revealed the patient had multiple bleeding angioectasias in the stomach-these were treated with a heater probe. Patient underwent a blood transfusion with a total of 4 units given during her hospital stay, patient also got an infusion of IV iron. On 10/09/2021, patient was seen and examined: On examination she appeared in good health and spirits, she does not appear to be in any distress. Vital signs as documented. Skin warm and dry and without overt rashes. Neck without JVD, thyroid appears normal, trachea is midline, neck is supple. Lungs clear, normal air movement was noted. Heart exam notable for regular rhythm, normal sounds and absence of murmurs, rubs or gallops. Abdomen unremarkable and without evidence of organomegaly, masses, or abdominal aortic enlargement, bowel sounds are present in all 4 quadrants, no abdominal tenderness was noted. Extremities nonedematous, no cyanosis was noted, no clubbing was noted. Neuro: Cranial nerves II through XII are grossly intact, no focal motor deficits were noted, sensation to light touch and pinprick is intact, motor exam 5/5 throughout. Psych: Patient is alert and oriented x3, she does not appear anxious or depressed, she does not appear agitated. Patient was discharged in stable condition on 10/09/2021. I talked with the patient's PCP (Dr. Lares) before the patient was discharged home to update him on her medical condition. She will follow-up next week in the office for a CBC. Weight / BMI Weight Weight: 94.6 kg Body Mass Index (BMI) 38.1 ABG / Lab / Microbiology Data Result Diagrams: 10/09/21 06:30 10/09/21 06:30 Laboratory: Laboratory Results - last 24 hr 10/07/21 12:42: Diff Path Review Reviewed 10/07/21 12:42: Crossmatch See Detail 10/07/21 12:42: Crossmatch See Detail 10/08/21 05:20: Diff Path Review Reviewed 10/08/21 11:16: Hgb Cancelled, Hct Cancelled 10/08/21 15:32: POC Glucose 172 H 10/08/21 18:34: Hgb 7.2 L, Hct 23.1 L 10/08/21 22:10: POC Glucose 150 H 10/09/21 06:30: WBC 4.3 L, RBC 2.57 L, Hgb 7.6 L, Hct 24.1 L, MCV 93.8, MCH 29.6, MCHC 31.5 L, RDW Std Deviation 66.4 H, RDW Coeff of Saundra 21.6 H, Plt Count 60 L, MPV 13.1 H, Immature Gran % (Auto) 0.500, Neut % (Auto) 71.6 H, Lymph % (Auto) 15.5 L, Prentiss % (Auto) 9.2, Eos % (Auto) 3.0, Baso % (Auto) 0.2, Absolute Neuts (auto) 3.1, Absolute Lymphs (auto) 0.67 L, Nucleated RBC % 0, Platelet Estimate MKD DEC, Anisocytosis 1+ 10/09/21 06:30: Sodium 137, Potassium 4.1, Chloride 105, Carbon Dioxide 25.0, Anion Gap 7, BUN 40 H, Creatinine 0.96, Estim Creat Clear Calc 47.44, Est GFR (MDRD) Af Amer 75, Est GFR (MDRD) Non-Af 62, BUN/Creatinine Ratio 41.5 H, Glucose 161 H, Calcium 8.1 L, Total Bilirubin 2.10 H, AST 37, ALT 25, Alkaline Phosphatase 59, Total Protein 4.4 L, Albumin 2.0 L, Globulin 2.4, Albumin/Globulin Ratio 0.8 L 10/09/21 06:34: POC Glucose 150 H D/C Instructions Discharge Diet: No restrictions Weight Bearing Status: Full weight bearing and - (Use walker if necessary) Meaningful Use Info Meaningful Use Diagnoses (Choose all that apply): None applicable Discharge Plan Admission Admit Date/Time: 10/07/21 13:45 Primary Reason for Your Visit: Upper GI bleed Attending Provider: Brenden Giraldo Primary Care Provider: Maxwell Lares Discharge Orders/Prescriptions Prescriptions: New sucralfate [Carafate] 1 gram tablet 1 g PO .QID Qty: 120 0RF Continued metformin 500 mg tablet 500 mg PO BREAKFAST Label Comments: take 1 tablet by mouth once daily with breakfast albuterol sulfate 2.5 mg /3 mL (0.083 %) solution for nebulization 2.5 mg inhalation Q4H PRN PRN (Reason: wheezing/shortness of breath) Label Comments: inhale contents of 1 vial ( 3 milliliters ) in nebulizer by mouth... (REFER TO PRESCRIPTION NOTES). gabapentin 400 mg capsule 400 mg PO DAILY Label Comments: take 1 capsule by mouth once daily sertraline 100 mg tablet 200 mg PO QHS Label Comments: take 2 tablets by mouth once daily simvastatin 40 mg tablet 40 mg PO QHS Label Comments: take 1 tablet by mouth at bedtime montelukast 10 mg tablet 10 mg PO DAILY Label Comments: take 1 tablet by mouth once daily nystatin [Nyamyc] 100,000 unit/gram powder 1 applic TOPICAL 4X/DAY PRN PRN (Reason: yeast/excoriated areas) Label Comments: apply to affected area four times a day if needed loratadine 10 mg tablet 10 mg PO DAILY Label Comments: take 1 tablet by mouth once daily if needed lactulose 10 gram/15 mL solution 15 ml PO TID Label Comments: take 15 milliliters by mouth three times a day cholecalciferol (vitamin D3) 50 mcg (2,000 unit) Tablet 50 mcg PO DAILY albuterol sulfate [Ventolin HFA] 90 mcg/actuation HFA aerosol inhaler 2 inh INHALATION Q4H PRN (Reason: SOB) Label Comments: INHALE 2 PUFFS BY MOUTH EVERY 4 HOURS NEEDED SHORTNESS OF BREATH /WHEEZING furosemide 40 mg Tablet 40 mg PO DAILY Qty: 30 2RF ascorbic acid (vitamin C) 500 mg tablet 500 mg PO BID Qty: 60 1RF omeprazole 40 mg capsule,delayed release(DR/EC) 40 mg PO BID Qty: 60 2RF Label Comments: take 1 capsule by mouth once daily Rx Instructions: At least for 8 weeks carvedilol 3.125 mg tablet 6.25 mg PO BID Qty: 0 0RF Label Comments: take 2 tablets by mouth twice a day spironolactone 50 mg tablet 100 mg PO DAILY Label Comments: take 3 tablets by mouth once daily Rx Instructions: Hold if potassium more than 5.0 Referrals / Follow Up: FriendArturo DO [STAFF PHYSICIAN] - See Referral Note (In 2 weeks) Maxwell Lares MD [Primary Care Provider] - Within 1 Week (Get a repeat CBC done on Wednesday or Wednesday of next week) Disposition Disposition (needs filled in before D/C Order can be placed): Home Health Service Charges/Coding Visit Charges Inpatient E&M: 50985 Disch Hosp
[2021-10-09 11:25] LABS: Bedside Glucose 146 mg/dL (74-106)
== END 2021-10-09 14:18 | disposition home health service (06) | DRG 253 ==
LOC: ED 13:29 → PCU 14:44
PROVIDERS: Internal Medicine Gastroenterology; Nurse Practitioner Family; Admitting Provider Internal Medicine; Emergency Provider Emergency Medicine; PCP Internal Medicine; Visit Provider Internal Medicine
PROC: 0DJ08ZZ Inspection of Upper Intestinal Tract, Via Natural or Artificial Opening Endoscopic (ICD-10-PCS; CPT 43235; principal; 2021-10-08 08:25)
DX: K31.811 Angiodysplasia of stomach and duodenum with bleeding (principal); D61.818 Other pancytopenia; R18.8 Other ascites; D62 Acute posthemorrhagic anemia; K74.69 Other cirrhosis of liver; E11.9 Type 2 diabetes mellitus without complications; K75.81 Nonalcoholic steatohepatitis (NASH); K31.89 Other diseases of stomach and duodenum; F32.A Depression, unspecified; Z59.89 Other problems related to housing and economic circumstances; Z79.84 Long term (current) use of oral hypoglycemic drugs; Z79.899 Other long term (current) drug therapy; Z86.73 Personal history of transient ischemic attack (TIA), and cerebral infarction without residual deficits; Z87.891 Personal history of nicotine dependence
CPT/HCPCS: 36415; 74174; 80053; 82140; 82962; 83615; 85014; 85018; 85025; 85610; 85652; 86140; 86644; 86850; 86900; 86901; 86920; 86922; 86965; 94640; 97162; 97166; 99251; 99284; J7040; J7050; P9016; P9035; Q9967; A4216; G0463; J1940; J2916; J3490

== ENCOUNTER → 2021-10-07 | Outpatient (CLI) | payer MEDICAID, SELFPAY ==
[2021-10-07 09:26] LABS: Absolute Lymphocyte Count 0.57 X10^3/uL (0.83-4.51); Absolute Neutrophil Count 1.7 X10^3/uL (2.0-7.7); Eosinophils% 3.9 % (0-5); Hematocrit 19.2 % (37-47); Lymphocyte # 0.57 X10^3/ul (0.83-4.51); Lymphocyte % 22.1 % (19-41); Mean Corp Hgb Conc 30.2 g/dL (32-36); Mean Corpuscular Hgb 29.6 pg (27.0-32.0); Mean Platelet Vol. 12.9 fl (6.2-12.0); Monocyte# 0.22 X10^3/uL; Monocyte% 8.5 % (0-10); NRBC Flagged by Analyzer 0 % (0-5); Neutrophil # 1.67 X10^3/uL (2.7-7.7); Neutrophil % 64.7 % (47-70); POSITIVE COUNT YES; POSITIVE DIFFERENTIAL YES; Platelet Count 58 K/mm3 (150-450); RBC Distribution Width CV 19.7 % (11.6-14.6); RBC Distribution Width SD 64.6 fl (35.1-43.9); Red Blood Count 1.96 M/mm3 (4.2-5.4); White Blood Count 2.6 K/mm3 (4.4-11.0)
[2021-10-07 09:36] LABS: International Normalized Ratio 1.5; Prothrombin Time (Protime)PT. 17.4 SECONDS (11.7-14.9)
[2021-10-07 09:47] LABS: ALB/GLOB Ratio 0.8 RATIO (0.9-2.4); AST(SGOT) 32 U/L (15-37); Alanine Aminotransfer ALT/SGPT 23 U/L (13-56); Alkaline Phosphatase 75 U/L (45-117); Anion Gap 6 (5-15); BUN 43 mg/dL (7-18); BUN/Creat Ratio 42.6 RATIO (10-20); Calcium,Total 8.3 mg/dL (8.5-10.1); Chloride 107 mmol/L (98-107); Creatinine, Serum 1.01 mg/dL (0.55-1.02); EST Glomerular Filtration Rate 59 mL/min (>60); Est Glom Filt Rate - Afr Amer 71 mL/min (>60); Globulin 2.5 g/dL (2.2-4.2); Glucose 177 mg/dL (74-106); LDH 169 U/L (84-246); Potassium 4.5 mmol/L (3.5-5.1); Protein, Total 4.5 g/dL (6.4-8.2); Sodium Level 139 mmol/L (136-145)
[2021-10-07 10:07] LABS: Differential Indicated SCAN CRITERIA MET
[2021-10-07 10:08] LABS: Erythrocyte Sedimentation Rate < 1 mm/hr (0-30)
[2021-10-07 10:30] LABS: Hemoglobin 5.8 g/dL (12.0-15.0)
[2021-10-07 10:40] LABS: Anisocytosis 1+; Platelet Estimate MKD DEC (ADEQ); Red Cell Morphology N CHROM NORMAL (NORM C&C)
[2021-10-08 12:37] LABS: Pathologist Review Reviewed
== END | disposition home or self-care (01) ==
LOC: LAB 09:06
PROVIDERS: PCP Internal Medicine; Referring Provider Internal Medicine Gastroenterology; Visit Provider Internal Medicine Gastroenterology
DX: K74.60 Unspecified cirrhosis of liver (principal)
CPT/HCPCS: 36415; 80053; 82140; 83615; 85025; 85610; 85652; 86140

== ENCOUNTER → 2021-10-16 | Outpatient (CLI) | payer MEDICAID, SELFPAY | END | disposition home or self-care (01) | LOC: LABSPEC 15:08 | PROVIDERS: PCP Internal Medicine; Referring Provider Internal Medicine Hematology & Oncology; Visit Provider Internal Medicine Hematology & Oncology | DX: R69 Illness, unspecified (principal) | CPT/HCPCS: 86900; 86920; 86901; 86850 ==

== ENCOUNTER → 2021-10-17 | Outpatient (CLI) | payer MEDICAID, SELFPAY ==
[2021-10-17] MEDS: 0.9% NaCl Peripheral Flush Adult/Peds IV (10:25)
[2021-10-17 10:32] VITALS: BP 132/42; PULSE 80; RESP 14; TEMP 36.1; O2SAT 98; BMI 36.9
[2021-10-17 11:04] VITALS: BP 132/46; PULSE 83; RESP 12; TEMP 36.4; O2SAT 96
[2021-10-17 12:04] VITALS: BP 146/48; PULSE 88; RESP 18; TEMP 36.1; O2SAT 97
[2021-10-17 12:57] VITALS: BP 144/53; PULSE 84; RESP 18; TEMP 36.1; O2SAT 97
== END | disposition home or self-care (01) ==
LOC: MEDOUTP 10:13
PROVIDERS: PCP Internal Medicine; Visit Provider Internal Medicine Hematology & Oncology
DX: Z51.89 Encounter for other specified aftercare (principal); K74.60 Unspecified cirrhosis of liver
CPT/HCPCS: 36430; 86850; 86900; 86901; 86920; J7040; P9016; A4216